=== PATIENT | female | born 1965 | race Caucasian/White ===

== ENCOUNTER 2016-10-12 18:54 | Emergency (ER) | payer MEDICAID ==
[2010-10-25 02:15] VITALS: BMI 41.9
[2016-10-12 20:59] LABS: APPEARANCE HAZY (CLEAR); BILIRUBIN NEGATIVE (NEGATIVE); COLOR PINK (YELLOW); GLUCOSE NEGATIVE (NEGATIVE); KETONE NEGATIVE (NEGATIVE); LEUKOCYTE ESTERASE 1+ (NEGATIVE); NITRITE NEGATIVE (NEGATIVE); PROTEIN NEGATIVE (NEGATIVE); UROBILINOGEN NORMAL (NORMAL)
[2016-10-12 21:00] LABS: BACTERIA NONE SEEN /hpf (NONE SEEN); EPITHELIAL CELLS 0-5 /hpf (0-5); RED CELLS - URINE 25-50 /hpf (0-5); WHITE CELLS - URINE 0-5 /hpf (0-5)
[2016-12-17 10:42] VITALS: BMI 42.2
== END 2016-10-12 23:00 | disposition home or self-care (01) ==
LOC: D.ER 18:54
PROVIDERS: Emergency Medicine
DX: N23 Unspecified renal colic (principal); R91.1 Solitary pulmonary nodule; I10 Essential (primary) hypertension; E11.9 Type 2 diabetes mellitus without complications

== ENCOUNTER 2016-10-22 16:13 | Emergency (ER) | payer MEDICAID ==
[2010-10-25 02:15] VITALS: BMI 41.9
[2016-10-22 17:51] LABS: APPEARANCE CLEAR (CLEAR); BILIRUBIN NEGATIVE (NEGATIVE); COLOR PINK (YELLOW); GLUCOSE NEGATIVE (NEGATIVE); KETONE NEGATIVE (NEGATIVE); LEUKOCYTE ESTERASE NEGATIVE (NEGATIVE); NITRITE NEGATIVE (NEGATIVE); PROTEIN NEGATIVE (NEGATIVE); UROBILINOGEN NORMAL (NORMAL)
[2016-10-22 17:52] LABS: BACTERIA FEW /hpf (NONE SEEN); RED CELLS - URINE 25-50 /hpf (0-5); WHITE CELLS - URINE 0-5 /hpf (0-5)
[2016-10-22 20:51] LABS: BASOPHILS 0.5 % (0.0-2.0); EOSINOPHILS 0.8 % (0-7); HEMATOCRIT 37.1 % (36.0-48.0); HEMOGLOBIN 11.9 g/dL (12-16); IMMATURE GRANULOCYTES 0.5 % (0-5); LYMPHOCYTES 19.1 % (15-50); MCH 27.2 pg (26.0-34.0); MCHC 32.1 g/dL (31.0-37.0); MCV 84.9 fL (80.0-100.0); MEAN PLATELET VOLUME 9.8 fL (7.4-10.4); MONOCYTES 7.4 % (2-11); NEUTROPHILS 71.7 % (40-80); PLATELET COUNT 187 10x3/uL (130-400); RBC 4.37 10x6/uL (4.00-5.40)
[2016-12-17 10:42] VITALS: BMI 42.2
== END 2016-10-22 23:24 | disposition home or self-care (01) ==
LOC: D.ER 16:13
PROVIDERS: Emergency Medicine; Nurse Practitioner Acute Care
DX: R31.9 Hematuria, unspecified (principal); I10 Essential (primary) hypertension; E11.9 Type 2 diabetes mellitus without complications

== ENCOUNTER 2016-10-23 18:22 | Emergency (ER) | payer MEDICAID ==
[2010-10-25 02:15] VITALS: BMI 41.9
[2016-12-17 10:42] VITALS: BMI 42.2
== END 2016-10-23 19:52 | disposition home or self-care (01) ==
LOC: D.ER 18:22
DX: S40.012A Contusion of left shoulder, initial encounter (principal); W10.9XXA Fall (on) (from) unspecified stairs and steps, initial encounter; Y93.89 Activity, other specified; Y92.019 Unspecified place in single-family (private) house as the place of occurrence of the external cause; S70.02XA Contusion of left hip, initial encounter; I10 Essential (primary) hypertension; E11.9 Type 2 diabetes mellitus without complications

== ENCOUNTER 2016-10-28 17:33 | Emergency (ER) | payer MEDICAID ==
[2010-10-25 02:15] VITALS: BMI 41.9
[2016-10-28 18:23] LABS: BASOPHILS 0.4 % (0.0-2.0); EOSINOPHILS 0.9 % (0-7); HEMATOCRIT 38.5 % (36.0-48.0); HEMOGLOBIN 12.4 g/dL (12-16); IMMATURE GRANULOCYTES 0.3 % (0-5); LYMPHOCYTES 20.8 % (15-50); MCH 27.3 pg (26.0-34.0); MCHC 32.2 g/dL (31.0-37.0); MCV 84.8 fL (80.0-100.0); MEAN PLATELET VOLUME 10.1 fL (7.4-10.4); MONOCYTES 4.8 % (2-11); NEUTROPHILS 72.8 % (40-80); RBC 4.54 10x6/uL (4.00-5.40); RDW 14.1 % (11.5-14.5); WBC 9.2 10x3/uL (4.8-10.8)
[2016-10-28 18:25] LABS: APPEARANCE HAZY (CLEAR); BILIRUBIN NEGATIVE (NEGATIVE); COLOR RED (YELLOW); GLUCOSE NEGATIVE (NEGATIVE); KETONE NEGATIVE (NEGATIVE); LEUKOCYTE ESTERASE 1+ (NEGATIVE); NITRITE NEGATIVE (NEGATIVE); PROTEIN NEGATIVE (NEGATIVE); UROBILINOGEN NORMAL (NORMAL)
[2016-10-28 18:26] LABS: EPITHELIAL CELLS 0-5 /hpf (0-5); RED CELLS - URINE >50 /hpf (0-5)
[2016-10-28 18:27] LABS: BACTERIA MODERATE /hpf (NONE SEEN); PLATELET COUNT 260 10x3/uL (130-400)
[2016-10-28 22:55] LABS: ANION GAP 13.9 mmol/L (8-16); CALCIUM 9.7 mg/dL (8.5-10.1); CARBON DIOXIDE 23.6 mmol/L (21.0-32.0); CREATININE - SERUM 0.9 mg/dL (0.6-1.3); POTASSIUM - SERUM 3.5 mmol/L (3.5-5.1)
[2016-12-17 10:42] VITALS: BMI 42.2
== END 2016-10-28 23:19 | disposition home or self-care (01) ==
LOC: D.ER 17:33
PROVIDERS: Emergency Medicine
DX: N39.0 Urinary tract infection, site not specified (principal); I10 Essential (primary) hypertension; E11.9 Type 2 diabetes mellitus without complications

== ENCOUNTER 2016-11-13 15:03 | Emergency (ER) | payer MEDICAID ==
[2010-10-25 02:15] VITALS: BMI 41.9
[2016-11-13 16:23] LABS: BASOPHILS 0.1 % (0.0-2.0); EOSINOPHILS 0.6 % (0-7); HEMATOCRIT 37.1 % (36.0-48.0); HEMOGLOBIN 11.5 g/dL (12-16); IMMATURE GRANULOCYTES 0.3 % (0-5); LYMPHOCYTES 21.9 % (15-50); MCH 26.9 pg (26.0-34.0); MCV 86.7 fL (80.0-100.0); MEAN PLATELET VOLUME 10.1 fL (7.4-10.4); MONOCYTES 5.5 % (2-11); NEUTROPHILS 71.6 % (40-80); RBC 4.28 10x6/uL (4.00-5.40); RDW 14.8 % (11.5-14.5); WBC 6.9 10x3/uL (4.8-10.8)
[2016-11-13 16:24] LABS: PLATELET COUNT 156 10x3/uL (130-400)
[2016-11-13 16:40] LABS: ALKALINE PHOSPHATASE 134 U/L (46-116); ALT (SGPT) 21 U/L (10-68); BILIRUBIN - TOTAL 0.31 mg/dL (0.2-1.3); CALC OSMOLALITY 277 mosm/kg (275-300); CALCIUM 9.4 mg/dL (8.5-10.1); CARBON DIOXIDE 23.1 mmol/L (21.0-32.0); CHLORIDE - SERUM 105 mmol/L (98-107); CREATININE - SERUM 0.8 mg/dL (0.6-1.3); GLUCOSE 102 mg/dL (74-106); PROTEIN - SERUM 7.8 g/dL (6.4-8.2); SODIUM 140 mmol/L (136-145); UREA NITROGEN 10 mg/dL (7-18); eGFR NON AFRICAN AMERICAN 80 mL/min (90-120)
[2016-11-13 17:09] LABS: APPEARANCE CLOUDY (CLEAR); BILIRUBIN NEGATIVE (NEGATIVE); COLOR RED (YELLOW); GLUCOSE NEGATIVE (NEGATIVE); KETONE NEGATIVE (NEGATIVE); LEUKOCYTE ESTERASE TRACE (NEGATIVE); NITRITE NEGATIVE (NEGATIVE); PROTEIN 1+ mg/dL (NEGATIVE); UROBILINOGEN NORMAL (NORMAL)
[2016-11-13 17:10] LABS: BACTERIA FEW /hpf (NONE SEEN); EPITHELIAL CELLS 0-5 /hpf (0-5); RED CELLS - URINE 25-50 /hpf (0-5); WHITE CELLS - URINE 0-5 /hpf (0-5)
[2016-12-17 10:42] VITALS: BMI 42.2
== END 2016-11-13 20:33 | disposition home or self-care (01) ==
LOC: D.ER 15:03
PROVIDERS: Emergency Medicine
DX: R11.10 Vomiting, unspecified (principal); R19.7 Diarrhea, unspecified; N20.0 Calculus of kidney; I10 Essential (primary) hypertension; E11.9 Type 2 diabetes mellitus without complications

== ENCOUNTER 2016-11-21 16:57 | Emergency (ER) | payer MEDICAID, MEDICARE ==
[2010-10-25 02:15] VITALS: BMI 41.9
[2016-12-17 10:42] VITALS: BMI 42.2
== END 2016-11-21 20:52 | disposition home or self-care (01) ==
LOC: D.ER 16:57
DX: S93.602A Unspecified sprain of left foot, initial encounter (principal); W22.8XXA Striking against or struck by other objects, initial encounter; Y93.89 Activity, other specified; Y92.488 Other paved roadways as the place of occurrence of the external cause; I10 Essential (primary) hypertension; E11.9 Type 2 diabetes mellitus without complications

== ENCOUNTER 2016-12-02 11:51 | Emergency (ER) | payer MEDICAID ==
[2010-10-25 02:15] VITALS: BMI 41.9
[2016-12-17 10:42] VITALS: BMI 42.2
== END 2016-12-02 12:00 | disposition left against medical advice (07) ==
LOC: D.ER 11:51
DX: Z02.9 Encounter for administrative examinations, unspecified (principal)

== ENCOUNTER 2016-12-16 18:12 | Inpatient (IN) | payer MEDICAID ==
[~2016-12-16] VITALS: Ht 167.6 cm; Wt 122.0 kg
[2016-12-16 19:24] LABS: APPEARANCE CLEAR (CLEAR); BASOPHILS 0.1 % (0.0-2.0); BILIRUBIN NEGATIVE (NEGATIVE); COLOR YELLOW (YELLOW); EOSINOPHILS 0.3 % (0-7); GLUCOSE NEGATIVE (NEGATIVE); HEMATOCRIT 36.2 % (36.0-48.0); HEMOGLOBIN 11.8 g/dL (12-16); IMMATURE GRANULOCYTES 0.3 % (0-5); KETONE NEGATIVE (NEGATIVE); LEUKOCYTE ESTERASE NEGATIVE (NEGATIVE); LYMPHOCYTES 14.5 % (15-50); MCH 27.4 pg (26.0-34.0); MCHC 32.6 g/dL (31.0-37.0); MCV 84.2 fL (80.0-100.0); MEAN PLATELET VOLUME 9.8 fL (7.4-10.4); MONOCYTES 3.1 % (2-11); NEUTROPHILS 81.7 % (40-80); NITRITE NEGATIVE (NEGATIVE); PLATELET COUNT 185 10x3/uL (130-400); PROTEIN NEGATIVE (NEGATIVE); RDW 15.4 % (11.5-14.5); UROBILINOGEN NORMAL (NORMAL); WBC 7.9 10x3/uL (4.8-10.8)
[2016-12-16 19:36] LABS: UDS - AMPHET NEGATIVE QUAL (NEGATIVE); UDS - BARB NEGATIVE QUAL (NEGATIVE); UDS - BENZO POSITIVE QUAL (NEGATIVE); UDS - COCAINE NEGATIVE QUAL (NEGATIVE); UDS - METH NEGATIVE QUAL (NEGATIVE); UDS - OPIATE NEGATIVE QUAL (NEGATIVE); UDS - PCP NEGATIVE QUAL (NEGATIVE); UDS - THC NEGATIVE QUAL (NEGATIVE)
[2016-12-16 19:47] LABS: ALKALINE PHOSPHATASE 134 U/L (46-116); ALT (SGPT) 34 U/L (10-68); BILIRUBIN - TOTAL 0.28 mg/dL (0.2-1.3); CALC OSMOLALITY 277 mosm/kg (275-300); CARBON DIOXIDE 20.1 mmol/L (21.0-32.0); CHLORIDE - SERUM 101 mmol/L (98-107); CREATININE - SERUM 0.8 mg/dL (0.6-1.3); GLUCOSE 161 mg/dL (74-106); POTASSIUM - SERUM 4.6 mmol/L (3.5-5.1); PROTEIN - SERUM 8.1 g/dL (6.4-8.2); SODIUM 138 mmol/L (136-145); UREA NITROGEN 9 mg/dL (7-18); eGFR NON AFRICAN AMERICAN 80 mL/min (90-120)
[2016-12-16 19:48] LABS: MAGNESIUM - SERUM 2.3 mg/dL (1.8-2.4)
--- NOTE | 2016-12-16 23:15 | NUR ---
RECIEVED TO ROOM 2125 FROM ER VIA STRETCHER. PT A&O. IV TO RIGHT WRIST SL, SITE CLEAN AND DRY. UP WITH ASSIST TO BR, FAMILY AT BED SIDE.
[2016-12-16] MEDS ORDERED: AMBIEN10 MG PO (23:48)
[2016-12-16] MEDS ORDERED: XANAX1 MG PO (23:49)
[2016-12-16] MEDS ORDERED: LEXAPRO10 MG PO (23:49)
[2016-12-16] MEDS ORDERED: PROTONIX40 MG PO (23:49)
[2016-12-16] MEDS ORDERED: IBUPROFEN400 MG PO (23:50)
--- NOTE | 2016-12-17 00:34 | NUR ---
ZOFRAN 4 MG GIVEN FOR C/O NAUSEA AND TYLENOL 500 MG GIVEN FOR C/O HEADACHE.
[2016-12-17 02:00] VITALS: BP 108/66
--- NOTE | 2016-12-17 03:48 | NUR ---
RESTING WITH EYES CLOSED, RESPERATIONS EVEN, NO S/S DISTRESS NOTED.
[2016-12-17 04:00] VITALS: BP 124/94
[2016-12-17 06:18] VITALS: BP 151/97; BMI 42.3
[2016-12-17 08:05] VITALS: BP 151/61
[2016-12-17 10:42] VITALS: Ht 167.6 cm; Wt 122.0 kg
[2016-12-17 12:07] VITALS: BP 138/83
[2016-12-17 13:41] LABS: BASOPHILS 0.6 % (0.0-2.0); EOSINOPHILS 0.6 % (0-7); HEMOGLOBIN 10.8 g/dL (12-16); IMMATURE GRANULOCYTES 0.2 % (0-5); LYMPHOCYTES 21.2 % (15-50); MCH 27.5 pg (26.0-34.0); MCHC 31.8 g/dL (31.0-37.0); MEAN PLATELET VOLUME 9.9 fL (7.4-10.4); MONOCYTES 4.7 % (2-11); NEUTROPHILS 72.7 % (40-80); PLATELET COUNT 168 10x3/uL (130-400); RBC 3.93 10x6/uL (4.00-5.40); RDW 15.7 % (11.5-14.5); WBC 6.2 10x3/uL (4.8-10.8)
[2016-12-17 13:48] LABS: MCV 86.5 fL (80.0-100.0)
[2016-12-17 13:59] LABS: ALBUMIN 3.7 g/dL (3.4-5.0); ANION GAP 17.1 mmol/L (8-16); BILIRUBIN - TOTAL 0.32 mg/dL (0.2-1.3); CALCIUM 8.6 mg/dL (8.5-10.1); CARBON DIOXIDE 22.6 mmol/L (21.0-32.0); PROTEIN - SERUM 7.3 g/dL (6.4-8.2)
[2016-12-17 14:03] LABS: POTASSIUM - SERUM 3.7 mmol/L (3.5-5.1)
[2016-12-17 14:28] LABS: % SATURATION 19 % (15-55); IRON 60 ug/dl (35-150); TOTAL IRON BIND CAPACITY 308 ug/dl (260-445); UNSAT IRON BIND CAPACITY 248 ug/dl (150-375)
[2016-12-17 16:00] VITALS: BP 107/76
--- NOTE | 2016-12-17 17:55 | NUR ---
ALERT AND ORIENTED X4. SITTING UP IN BED. DENIES SOB. PAIN MANAGEMENT FOR HEADACHES. SINUS RHYTHM 75bpm ON TELEMETRY. CONTINUE PLAN OF CARE AND SAFETY PRECAUTIONS. BED LOCKED AND LOW. CALL LIGHT IN REACH. TWO SIDERAILS UP.
--- NOTE | 2016-12-17 20:27 | NUR ---
HS MEDS GIVEN WITH FRESH ICE WATER. BS 113, NO COVERAGE GIVEN PER S/S. ZOFRAN 4 MG GIVEN FOR C/O NAUSEA AND TYLENOL WITH CODIENE GIVEN FOR C/O HEADACHE.
--- NOTE | 2016-12-17 22:29 | NUR ---
SITTING UP IN BED, DENIES NEEDS.
[2016-12-18] VITALS: BP 114/68
--- NOTE | 2016-12-18 00:10 | NUR ---
RESIDENTIAL PROPERTY MANAGER AT BED SIDE, HAIR WASHED AND TOWEL DRIED.
--- NOTE | 2016-12-18 00:33 | NUR ---
SUPERVISOR LACE TEARING AT BEDSIDE TO OBTAIN VITALS, CALL LIGHT IN REACH. 78 SR ON TELEMETRY. WILL CONTINUE WITH PLAN OF CARE.
[2016-12-18 04:00] VITALS: BP 108/74
--- NOTE | 2016-12-18 04:37 | NUR ---
RESTING WITH EYES CLOSED, RESPERATIONS EVEN, NO S/S DISTRESS NOTED.
[2016-12-18 06:36] LABS: BASOPHILS 0.4 % (0.0-2.0); EOSINOPHILS 2.1 % (0-7); HEMATOCRIT 34.5 % (36.0-48.0); HEMOGLOBIN 10.9 g/dL (12-16); IMMATURE GRANULOCYTES 0.4 % (0-5); LYMPHOCYTES 29.6 % (15-50); MCH 26.8 pg (26.0-34.0); MCHC 31.6 g/dL (31.0-37.0); MEAN PLATELET VOLUME 9.8 fL (7.4-10.4); MONOCYTES 3.7 % (2-11); NEUTROPHILS 63.8 % (40-80); PLATELET COUNT 177 10x3/uL (130-400); RBC 4.06 10x6/uL (4.00-5.40); RDW 15.9 % (11.5-14.5); WBC 5.7 10x3/uL (4.8-10.8)
[2016-12-18 07:00] LABS: ALBUMIN 3.5 g/dL (3.4-5.0); ALKALINE PHOSPHATASE 121 U/L (46-116); ALT (SGPT) 38 U/L (10-68); CALC OSMOLALITY 271 mosm/kg (275-300); CALCIUM 8.9 mg/dL (8.5-10.1); CARBON DIOXIDE 22.5 mmol/L (21.0-32.0); CHLORIDE - SERUM 104 mmol/L (98-107); CREATININE - SERUM 0.8 mg/dL (0.6-1.3); POTASSIUM - SERUM 3.7 mmol/L (3.5-5.1); PROTEIN - SERUM 7.2 g/dL (6.4-8.2); SODIUM 136 mmol/L (136-145); UREA NITROGEN 10 mg/dL (7-18); eGFR NON AFRICAN AMERICAN 80 mL/min (90-120)
[2016-12-18 07:08] LABS: GLUCOSE 108 mg/dL (74-106)
[2016-12-18 07:26] LABS: FOLATE (FOLIC ACID) - SERUM 10.1 ng/mL (>3.0)
[2016-12-18 07:48] VITALS: BP 107/75
--- NOTE | 2016-12-18 07:55 | NUR ---
ASSESSMENT COMPLETED. RIGHT WRIST WITH NS AT 75. ALERT AND ORIENTED. NPO FOR EEG. NO NEEDS VOICED.SR UP WITH CALL LIGHT IN REACH
--- NOTE | 2016-12-18 11:52 | HP ---
PATIENT: REYNALDO WATERS MEDICAL RECORD: [id number] ACCOUNT: [id number] LOCATION:[address] : [birth year] ADMISSION DATE: 12/16/16 HISTORY AND PHYSICAL EXAMINATION HISTORY OF PRESENT ILLNESS: Ms. Waters is a 51-year-old white female patient of Dr. Heath, who presents with an episode of 2 recent syncopal episodes; first episode occurred last Thursday, was witnessed by her significant other. She apparently passed out for 10-15 seconds when she came through, she was not herself. It took about 20-30 minutes to clear, had another episode today with another loss of consciousness, states she felt dizzy and lightheaded. She again lost consciousness and again was not herself. At this time, it took a little bit longer to come to. She denies any incontinence. She has no history of seizures in the past. CT of her head in the Emergency Room shows nothing acute. She does complain of a headache and nausea, which is pretty severe. She was treated with Toradol for the headache when she was seen at [facility]. She is admitted at this time for further evaluation and therapy. PAST MEDICAL HISTORY: Significant for diabetes, hypertension, obesity, GERD, anxiety, depression. PREVIOUS SURGERIES: Include gallbladder surgery, caesarean section, appendectomy, hysterectomy, multiple knee surgeries and a previous back surgery. ALLERGIES: None known. HOME MEDICATIONS: Include alprazolam 1 mg q.6 hours p.r.n., Lexapro 10 mg a day, ibuprofen p.r.n., Ambien 10 mg at bedtime, and pantoprazole 40 mg daily. FAMILY HISTORY: Noncontributory. SOCIAL HISTORY: She has lives with 3 smokers, but does not smoke herself. REVIEW OF SYSTEMS: She does complain of some anxiety problems, has been on alprazolam in the past and then she got a positive drug screen for benzos, states she has not taken it since Thursday, does not think she took too much medicine, but she does not recall for sure. She denies any chest pain or palpitation. She does complain of dizziness associated with these symptoms. LABORATORY DATA: Sodium was 138, potassium 4.6, BUN 9, creatinine 0.8, AST 50, ALT 34, alkaline phosphatase 134. White count is 7.9, H&H 11.8 and 36.2. Drug screen was positive for benzos. Lactic acid was a little elevated. PHYSICAL EXAMINATION: VITAL SIGNS: Temperature is 98.1, pulse 78, respirations 17, and BP 138/83. GENERAL: Alert, awake, no distress. HEENT: Negative. NECK: Soft and supple. No bruits are appreciated. HEART: Regular with II/ murmur. LUNGS: Clear. ABDOMEN: Soft. No rebound, no guarding, no mass. NEUROLOGIC: Without any gross focal deficits. IMPRESSION: Syncope times 2, elevated LFTs, type 2 diabetes. HISTORY AND PHYSICAL [id number] REYNALDO WATERS PLAN: Admit to telemetry. Check EEG, neurology consult with Dr. Reynaga. Check an echo due to heart murmur. See orders for rest of plan. TRANSINT:[id number] Voice Confirmation ID: [id number] DOCUMENT ID: [id number] SEBASTIAN RUIZ DO at 1152 CC: [id number] DICTATION DATE: 12/17/16 172 FIELD SUPPORT REP: 12/17/16 2311 ADM IN [place] [id number] [place] [address]
[2016-12-18 12:05] VITALS: BP 122/70
[2016-12-18 15:53] VITALS: BP 108/67
--- NOTE | 2016-12-18 15:58 | NUR ---
LYING QUIETLY. DENIES ANY NEEDS. IV INFUSING WELL. SR UP WITH CALL LIGHT IN REACH
--- NOTE | 2016-12-18 19:41 | NUR ---
RESUMED CARE OF PT, LYING IN BED RESPIRATIONS EVEN AND UNLABORED ON ROOM AIR. RIGHT WRIST INFUSING 1/2 NS @ 75. 78 SR ON TELEMETRY. PLAN OF CARE DISCUSSED. CALL LIGHT IN REACH. WILL CONTINUE TO MONITOR. COMPLAINTS OF MIGRAINE, MRI EARLIER TODAY. SEE NURSE ASSESSMENT.
[2016-12-18 20:00] VITALS: BP 109/74
[2016-12-19] VITALS: BP 116/67
[2016-12-19 04:00] VITALS: BP 108/69
[2016-12-19 08:22] VITALS: BP 107/65
--- NOTE | 2016-12-19 10:20 | NUR ---
RESTING QUIETLY NAD NOTED
[2016-12-19 12:42] VITALS: BP 130/75
--- NOTE | 2016-12-19 15:44 | NUR ---
LYING QUIETLY. FAMILY AT BEDSIDE. SR UP AND CALL LIGHT IN REACH.DENIES ANY NEEDS. WILL MONITOR
[2016-12-19 16:55] VITALS: BP 110/62
--- NOTE | 2016-12-19 17:20 | NUR ---
Patient Name: REYNALDO FALLON Admission Status: ER Admission Date: 12-16-2016 : 1965 Admission Diagnosis: SYNCOPE AND COLLAPSE Attending: DEXTER Current LOS: 3 Anticipated DC Date: 12-20-2016 Planned Disposition: Home or Self Care Primary Insurance: [place]ID [place] Discharge Planning Comments: CM met with patient and spouse at bedside to discuss discharge planning/needs. The patient resides with her spouse and three adult children in a single wide home with 4 steps to front door. She had no HH/DME supplies in use at time of this admission. She denies the need for either at this time. Her caregivers at discharge will be her spouse "Leonardo" and her daughter "Erin Fallon" ([phone]). Her PCP is Dr. Brown. Her pharmacy is [facility] ([facility]) #[phone]. Her spouse "Leonardo" ([phone]) will be her transportation home. CM will continue to follow and assist as needed with discharge plans/needs. Senior Relationship Manager: Zara Perez RN/CM * Is the patient Alert and Oriented? Yes 0 * How many steps to enter\\exit or inside your home? 4 0 * PCP JEAN MARIE 0 * Pharmacy [facility] ([facility]) [phone] 0 * Preadmission Environment Home with Family 0 * ADLs Independent 0 * Equipment None 0 * List name and contact numbers for known caregivers / representatives who currently or will assist patient after discharge: spouse: Leonardo Fallon ([phone]) daughter: Erin Fallon ([phone]) 0 * Community resources currently utilized None 0 * Additional services required to return to the preadmission environment? No 0 * Can the patient safely return to the preadmission environment? Yes 0 * Has this patient been hospitalized within the prior 30 days at any hospital? No 0 Grand Total: 0
--- NOTE | 2016-12-19 18:49 | NUR ---
LYING QUIETLY. DENIES ANY NEED. WILL MONITOR
--- NOTE | 2016-12-19 19:29 | NUR ---
PT AMBULATING HALLS. GAIT EVEN AND STEADY. WILL CONTINUE TO MONITOR.
[2016-12-19 21:31] VITALS: BP 118/77
--- NOTE | 2016-12-19 22:11 | NUR ---
ASESSMENT COMPLETED AT 2009 HRS. VSS. SR PER CM HR 80. IV TO R WRIST WITH 1/2NS AT 75CC/HR. IV PATENT. R EYE CLOSED. STATES HS PHOTOSENSITIVITY TO THAT EYE. BRUIDE NOTED TO INNER L WRIST. SORES NOTED TO BILAT FEET ADN TOES. ALERT AND ORIENTED TO PERSON, PLACE AND TIME. PM FSBS 115. NO COVERAGE NEEDED. PM MEDS GIVEN. DILAUDID 0.5MG SIVP GIVEN FOR C/O AGUSTIN. PT CURRENTLY RESTING WITHI EYES CLOSED. RESP EVEN AND REGULAR. SR UP X2, CALL LIGHT WITHIN REACH.
--- NOTE | 2016-12-20 00:29 | NUR ---
PT AWAKE; STATES AGUSTIN NOW 12/12. WILL CONTINUE TO MONITOR.
--- NOTE | 2016-12-20 02:13 | NUR ---
PT RESTING WITH EYES CLOSED. RESP EVEN AND REGULAR. SR UP X2, CALL LIGHT WITHIN REACH.
--- NOTE | 2016-12-20 04:20 | NUR ---
PT AWAKE; DENIES ANY DISCOMFORT. ALERT AND ORIENTED TO PERSON, PLACE AND TIME. WILL CONTINUE TO MONITOR. SR UP X2, CALL LIGHT WITHIN REACH.
--- NOTE | 2016-12-20 04:52 | NUR ---
DILAUDID 0.5MG SIVP GIVEN FOR C/O MIGRAINE. WILL CONTINUE TO MONITOR.
[2016-12-20 05:31] LABS: BASOPHILS 0.4 % (0.0-2.0); EOSINOPHILS 1.6 % (0-7); HEMATOCRIT 32.4 % (36.0-48.0); HEMOGLOBIN 10.2 g/dL (12-16); IMMATURE GRANULOCYTES 0.4 % (0-5); LYMPHOCYTES 30.9 % (15-50); MCH 27.1 pg (26.0-34.0); MCHC 31.5 g/dL (31.0-37.0); MCV 85.9 fL (80.0-100.0); MEAN PLATELET VOLUME 10.1 fL (7.4-10.4); MONOCYTES 4.9 % (2-11); NEUTROPHILS 61.8 % (40-80); PLATELET COUNT 145 10x3/uL (130-400); RBC 3.77 10x6/uL (4.00-5.40); RDW 15.9 % (11.5-14.5); WBC 5.7 10x3/uL (4.8-10.8)
[2016-12-20 05:49] LABS: CALC OSMOLALITY 272 mosm/kg (275-300); CALCIUM 8.9 mg/dL (8.5-10.1); CARBON DIOXIDE 22.5 mmol/L (21.0-32.0); CHLORIDE - SERUM 105 mmol/L (98-107); CREATININE - SERUM 0.7 mg/dL (0.6-1.3); GLUCOSE 124 mg/dL (74-106); POTASSIUM - SERUM 3.7 mmol/L (3.5-5.1); SODIUM 137 mmol/L (136-145); UREA NITROGEN 8 mg/dL (7-18); eGFR NON AFRICAN AMERICAN > 90 mL/min (90-120)
[2016-12-20 05:53] VITALS: BP 107/72
--- NOTE | 2016-12-20 06:35 | NUR ---
VSS THORUGHOUT NIGHT. SR PER CM. NO NEURO DEFICITS NOTED DURING SHIFT. PT STATES DILAUDID HELPS MIGRAINE. NEEDS MET; WILL CONTINUE TO MONITOR.
--- NOTE | 2016-12-20 07:33 | NUR ---
RECEIVED PT REPORT. WILL CONTINUE PLAN OF CARE. NO OTHER NEEDS AT THIS TIME. WILL CONTINUE TO MONITOR.
--- NOTE | 2016-12-20 08:25 | NUR ---
PT IS ALERT. ASSESSMENT DONE PER FLOWSHEET. NO OTHER NEEDS AT THIS TIME. WILL CONTINUE TO MONITOR.
[2016-12-20 09:19] VITALS: BP 115/74
[2016-12-20 12:21] VITALS: BP 129/78
[2016-12-20] MEDS ORDERED: TOPAMAX25 MG PO (15:20)
[2016-12-20] MEDS ORDERED: IMITREX50 MG PO (15:20)
[2016-12-20 15:49] VITALS: BP 120/71
--- NOTE | 2016-12-23 08:17 | EC ---
PATIENT:REYNALDO FALLON DATE OF SERVICE: 12/16/16 SEX: F MEDICAL RECORD: [id number] DATE OF : 67 LOCATION:D. D.212 AGE OF PATIENT: 51 ADMISSION DATE: 12/16/16 REFERRING PHYSICIAN: INTERPRETING PHYSICIAN: YAMILET DENISE M.D. ECHOCARDIOGRAM REPORT ECHO CHARGES 4 ECHO COMPLETE CLINICAL DIAGNOSIS: MURMUR/SYNCOPE HX CAD/ TREATED WITH MEDS ECHOCARDIOGRAPHIC MEASUREMENTS (adult normal given) AC root (d.<3.7cm) 3.8 LV Septum d (<1.2 cm> 1.4 Valve Excursion 1.7 LV Septum (systole) 1.5 Left Atria (s.<4.0cm> 3.4 LVPW d(<1.2cm) 1.3 RV (d.<2.3cm) 5.3 LVPW (sytole) 1.4 LV diastole(<5.6CM) 3.7 MV E-F(>70mm/sec) LV systole 2.8 LVOT Diameter 2.2 MV exc.(>10mm) 1.6 Est.ejection fraction (50-75%) Pericardial Effusion N DOPPLER: LVIT A 96.0 E 71.0 LA RVSP 28 LVOT 117 AOP1/2T Asc. Ao 227 RVOT 85 RA PA 134 AV Gradient Peak 20.57 AV Mean 10.85 AV Area 1.9 MV Gradient Peak 6.36 MV Mean 2.81 MV Area COMMENTS: Hardware Installer: Kerry MUNSON Clinical Psychologist:2 Dr. Denise TAPE# PACS DATE OF SERVICE: 12/18/2016 REFERRING PHYSICIAN: Jhony Kelsey DO INDICATION: Murmur, syncope. DESCRIPTION: Left ventricle demonstrates left ventricular hypertrophy. No wall motion abnormalities are noted. Estimated ejection fraction is 55%. Mitral valve is structurally normal. There is mild regurgitation seen. Left atrium is normal in size. The aortic valve leaflets are thickened. Peak gradient across ECHOCARDIOGRAM REPORT [id number] REYNALDO FALLON the valve is 20 mmHg. There is mild insufficiency noted as well. Right ventricle is mildly dilated. Tricuspid valve is normal. There is mild regurgitation noted. Right atrium is normal in size. There is no pericardial effusion seen. IMPRESSION: 1. Left ventricular hypertrophy with preserved ejection fraction of 55%. 2. Mild mitral regurgitation. 3. Mild aortic stenosis with mild insufficiency. 4. Mild tricuspid regurgitation. TRANSINT:[id number] Voice Confirmation ID: [id number] DOCUMENT ID: [id number] YAMILET DENISE M.D. at 0817 CC: [id number] DICTATION DATE: 12/19/16 0636 TIMBER WATCHMAN: 12/19/16 1013 DIS IN 12/20/16 [place] [id number] [place] [id number]
--- NOTE | 2016-12-24 08:21 | EEG ---
PATIENT:REYNALDO FALLON DATE OF SERVICE: 12/16/16 MEDICAL RECORD: [id number] DATE OF : [birth year] LOCATION:D.212 D.M2 ADMISSION DATE: 12/16/16 REFERRING PHYSICIAN: INTERPRETING PHYSICIAN: JOSEPH CAICEDO MD DATE OF SERVICE: 12/18/2016 Electroencephalographic Report REFERRED BY: Myself as an inpatient, currently in room 2126. ELECTROENCEPHALOGRAM NUMBER: [id number]. DATE OF EXAMINATION: 12/18/2016 at 10:30 a.m. TECHNICAL DATA: This electroencephalographic recording consists of approximately 20 minutes of data collection utilizing the international 10/20 system of electrode placement and both referential and non-referential montages. Sixteen channels of electrocerebral recording are accompanied by a 17th channel dedicated to the electrocardiographic rhythm and 2 channels of electromyographic recording. Recording is performed in the awake and drowsy states utilizing activation by photic stimulation. ELECTROENCEPHALOGRAPHIC DATA: The awake state comprises approximately 70% of the recorded electrocerebral activity. Electromyographic artifact is prominent and rapid eye movements are seen. The posterior dominant background consists of a symmetric, semi-arrhythmic, waxing and waning 9-10 Hz alpha activity, which is suppressed by eye opening. The drowsy state comprises the remaining portion of the recorded electrocerebral activity. Electromyographic artifact is diminished and rapid eye movements are not seen. No abnormal or focal slowing is identified. No epileptiform discharges are seen. Photic stimulation induces no abnormal change in the recorded electrocerebral activity. INTERPRETATION: Normal (awake and drowsy). This is a normal electroencephalographic recording. TRANSINT:[id number] Voice Confirmation ID: [id number] DOCUMENT ID: [id number] JOSEPH CAICEDO MD at 0821 CC: [id number] DICTATION DATE: 12/19/16 0704 CLOTHING AND TEXTILES TEACHER: 12/20/16 0129 DIS IN 12/20/16 [facility] [address] [place] [address]
== END 2016-12-20 18:29 | disposition home or self-care (01) | DRG 312 ==
LOC: D.ER 18:12 → D.M2 22:07
PROVIDERS: Family Medicine; ADMIT Family Medicine
DX: R55 Syncope and collapse (principal); Z68.41 Body mass index [BMI] 40.0-44.9, adult; G43.909 Migraine, unspecified, not intractable, without status migrainosus; F41.8 Other specified anxiety disorders; R74.8 Abnormal levels of other serum enzymes; E66.9 Obesity, unspecified; R41.82 Altered mental status, unspecified; E11.65 Type 2 diabetes mellitus with hyperglycemia; I10 Essential (primary) hypertension; K21.9 Gastro-esophageal reflux disease without esophagitis; I08.2 Rheumatic disorders of both aortic and tricuspid valves; F32.9 Major depressive disorder, single episode, unspecified

== ENCOUNTER 2017-01-05 19:28 | Emergency (ER) | payer MEDICAID ==
[2016-12-17 10:42] VITALS: BMI 42.2
[~2017-01-05 19:28] MED LIST: AMBIEN10 MG PO; IBUPROFEN400 MG PO; IMITREX50 MG PO; LEXAPRO10 MG PO; PROTONIX40 MG PO; TOPAMAX25 MG PO; XANAX1 MG PO
[2017-01-05 20:12] LABS: BASOPHILS 0.3 % (0.0-2.0); EOSINOPHILS 0.5 % (0-7); HEMOGLOBIN 11.8 g/dL (12-16); IMMATURE GRANULOCYTES 0.3 % (0-5); LYMPHOCYTES 25.6 % (15-50); MCH 27.8 pg (26.0-34.0); MCHC 32.8 g/dL (31.0-37.0); MCV 84.7 fL (80.0-100.0); MONOCYTES 6.8 % (2-11); NEUTROPHILS 66.5 % (40-80); RBC 4.25 10x6/uL (4.00-5.40); RDW 15.6 % (11.5-14.5); WBC 7.9 10x3/uL (4.8-10.8)
[2017-01-05 20:16] LABS: PLATELET COUNT 179 10x3/uL (130-400)
[2017-01-05 22:37] LABS: APPEARANCE CLEAR (CLEAR); BILIRUBIN NEGATIVE (NEGATIVE); COLOR YELLOW (YELLOW); GLUCOSE NEGATIVE (NEGATIVE); KETONE NEGATIVE (NEGATIVE); LEUKOCYTE ESTERASE NEGATIVE (NEGATIVE); NITRITE NEGATIVE (NEGATIVE); PROTEIN NEGATIVE (NEGATIVE); UROBILINOGEN NORMAL (NORMAL)
[2017-01-05 22:53] LABS: UDS - AMPHET NEGATIVE QUAL (NEGATIVE); UDS - BARB NEGATIVE QUAL (NEGATIVE); UDS - BENZO NEGATIVE QUAL (NEGATIVE); UDS - COCAINE NEGATIVE QUAL (NEGATIVE); UDS - METH NEGATIVE QUAL (NEGATIVE); UDS - OPIATE NEGATIVE QUAL (NEGATIVE); UDS - PCP NEGATIVE QUAL (NEGATIVE); UDS - THC NEGATIVE QUAL (NEGATIVE)
[2017-01-05 23:13] LABS: ALBUMIN 4.2 g/dL (3.4-5.0); ALKALINE PHOSPHATASE 131 U/L (46-116); ALT (SGPT) 30 U/L (10-68); BILIRUBIN - TOTAL 0.33 mg/dL (0.2-1.3); CALC OSMOLALITY 283 mosm/kg (275-300); CALCIUM 9.6 mg/dL (8.5-10.1); CARBON DIOXIDE 14.7 mmol/L (21.0-32.0); CHLORIDE - SERUM 105 mmol/L (98-107); CREATININE - SERUM 0.8 mg/dL (0.6-1.3); GLUCOSE 124 mg/dL (74-106); POTASSIUM - SERUM 3.8 mmol/L (3.5-5.1); PROTEIN - SERUM 8.4 g/dL (6.4-8.2); SODIUM 142 mmol/L (136-145); UREA NITROGEN 13 mg/dL (7-18); eGFR NON AFRICAN AMERICAN 80 mL/min (90-120)
== END 2017-01-06 01:58 | disposition home or self-care (01) ==
LOC: D.ER 19:28
PROVIDERS: Emergency Medicine
DX: R41.82 Altered mental status, unspecified (principal); I10 Essential (primary) hypertension; E11.9 Type 2 diabetes mellitus without complications; R00.0 Tachycardia, unspecified

== ENCOUNTER 2017-01-21 18:32 | Emergency (ER) | payer MEDICARE ==
[2016-12-17 10:42] VITALS: BMI 42.2
== END 2017-01-21 20:30 | disposition home or self-care (01) ==
LOC: D.ER 18:32
DX: R51 Headache (principal); E11.9 Type 2 diabetes mellitus without complications; K21.9 Gastro-esophageal reflux disease without esophagitis; I10 Essential (primary) hypertension

== ENCOUNTER 2017-01-29 12:29 | Emergency (ER) | payer MEDICARE ==
[2017-01-29 13:38] LABS: BASOPHILS 0.3 % (0-2); EOSINOPHILS 0.8 % (0-7); HEMOGLOBIN 11.6 g/dL (12-16); IMMATURE GRANULOCYTES 0.3 % (0-5); LYMPHOCYTES 29.8 % (15-50); MCH 27.7 pg (26.0-34.0); MCHC 32.2 g/dL (31.0-37.0); MCV 85.9 fL (80.0-100.0); MEAN PLATELET VOLUME 9.8 fL (7.4-10.4); MONOCYTES 5.7 % (2-11); NEUTROPHILS 63.1 % (40-80); PLATELET COUNT 191 10x3/uL (130-400); RBC 4.19 10x6/uL (4.00-5.40); RDW 15.1 % (11.5-14.5); WBC 5.9 10x3/uL (4.8-10.8)
[2017-01-29 13:51] LABS: APPEARANCE CLEAR (CLEAR); BILIRUBIN NEGATIVE (NEGATIVE); COLOR RED (YELLOW); GLUCOSE NEGATIVE (NEGATIVE); KETONE NEGATIVE (NEGATIVE); LEUKOCYTE ESTERASE 1+ (NEGATIVE); NITRITE NEGATIVE (NEGATIVE); PROTEIN TRACE mg/dL (NEGATIVE); UROBILINOGEN NORMAL (NORMAL)
[2017-01-29 13:52] LABS: ALBUMIN 3.6 g/dL (3.4-5.0); ANION GAP 15.4 mmol/L (8-16); BACTERIA FEW /hpf (NONE SEEN); BILIRUBIN - TOTAL 0.22 mg/dL (0.2-1.3); CALCIUM 9.1 mg/dL (8.5-10.1); CARBON DIOXIDE 21.7 mmol/L (21.0-32.0); CREATININE - SERUM 0.9 mg/dL (0.6-1.3); EPITHELIAL CELLS 0-5 /hpf (0-5); POTASSIUM - SERUM 4.1 mmol/L (3.5-5.1); PROTEIN - SERUM 7.8 g/dL (6.4-8.2); RED CELLS - URINE >50 /hpf (0-5)
== END 2017-01-29 16:00 | disposition home or self-care (01) ==
LOC: D.ER 12:29
PROVIDERS: Emergency Medicine
DX: N39.0 Urinary tract infection, site not specified (principal); R30.0 Dysuria; R10.9 Unspecified abdominal pain; F41.9 Anxiety disorder, unspecified; E11.9 Type 2 diabetes mellitus without complications

== ENCOUNTER 2017-02-10 14:13 | Emergency (ER) | payer MEDICARE ==
[2016-12-17 10:42] VITALS: BMI 42.2
[2017-02-10 14:48] LABS: BASOPHILS 0.2 % (0-2); EOSINOPHILS 0.6 % (0-7); HEMATOCRIT 37.3 % (36.0-48.0); HEMOGLOBIN 11.8 g/dL (12-16); IMMATURE GRANULOCYTES 0.2 % (0-5); LYMPHOCYTES 27.8 % (15-50); MCH 27.3 pg (26.0-34.0); MCHC 31.6 g/dL (31.0-37.0); MCV 86.3 fL (80.0-100.0); MONOCYTES 6.4 % (2-11); NEUTROPHILS 64.8 % (40-80); PLATELET COUNT 214 10x3/uL (130-400); RBC 4.32 10x6/uL (4.00-5.40); RDW 14.8 % (11.5-14.5); WBC 8.3 10x3/uL (4.8-10.8)
[2017-02-10 14:56] LABS: APPEARANCE HAZY (CLEAR); BILIRUBIN NEGATIVE (NEGATIVE); COLOR YELLOW (YELLOW); GLUCOSE NEGATIVE (NEGATIVE); KETONE NEGATIVE (NEGATIVE); LEUKOCYTE ESTERASE TRACE (NEGATIVE); NITRITE NEGATIVE (NEGATIVE); PROTEIN NEGATIVE (NEGATIVE); UROBILINOGEN NORMAL (NORMAL)
[2017-02-10 15:05] LABS: ALBUMIN 3.9 g/dL (3.4-5.0); ANION GAP 14.2 mmol/L (8-16); BILIRUBIN - TOTAL 0.3 mg/dL (0.2-1.3); CALCIUM 9.4 mg/dL (8.5-10.1); CARBON DIOXIDE 24.8 mmol/L (21.0-32.0); CREATININE - SERUM 0.9 mg/dL (0.6-1.3); PROTEIN - SERUM 8.3 g/dL (6.4-8.2)
[2017-02-10 15:12] LABS: EPITHELIAL CELLS 0-5 /hpf (0-5); RED CELLS - URINE >50 /hpf (0-5); WHITE CELLS - URINE 0-5 /hpf (0-5)
[2017-02-10 15:14] LABS: BACTERIA MANY /hpf (NONE SEEN)
== END 2017-02-10 19:08 | disposition home or self-care (01) ==
LOC: D.ER 14:13
PROVIDERS: Emergency Medicine
DX: N23 Unspecified renal colic (principal); E11.9 Type 2 diabetes mellitus without complications

== ENCOUNTER 2017-03-08 13:47 | Emergency (ER) | payer MEDICAID ==
[2016-12-17 10:42] VITALS: BMI 42.2
[2017-03-08 15:28] LABS: APPEARANCE HAZY (CLEAR); BILIRUBIN NEGATIVE (NEGATIVE); COLOR YELLOW (YELLOW); EPITHELIAL CELLS 0-5 /hpf (0-5); GLUCOSE NEGATIVE (NEGATIVE); KETONE NEGATIVE (NEGATIVE); LEUKOCYTE ESTERASE NEGATIVE (NEGATIVE); NITRITE NEGATIVE (NEGATIVE); PROTEIN NEGATIVE (NEGATIVE); RED CELLS - URINE >50 /hpf (0-5); UROBILINOGEN NORMAL (NORMAL); WHITE CELLS - URINE 0-5 /hpf (0-5)
[2017-03-08 15:29] LABS: BACTERIA FEW /hpf (NONE SEEN)
== END 2017-03-08 19:53 | disposition home or self-care (01) ==
LOC: D.ER 13:47
PROVIDERS: Emergency Medicine
DX: M54.5 Low back pain (principal); M54.10 Radiculopathy, site unspecified; E11.9 Type 2 diabetes mellitus without complications

== ENCOUNTER 2017-03-27 14:55 | Emergency (ER) | payer MEDICAID ==
[2016-12-17 10:42] VITALS: BMI 42.2
== END 2017-03-27 17:28 | disposition home or self-care (01) ==
LOC: D.ER 14:55
DX: S30.0XXA Contusion of lower back and pelvis, initial encounter (principal); X58.XXXA Exposure to other specified factors, initial encounter; Y93.89 Activity, other specified; Y92.019 Unspecified place in single-family (private) house as the place of occurrence of the external cause

== ENCOUNTER 2017-04-26 13:18 | Emergency (ER) | payer MEDICAID ==
[2016-12-17 10:42] VITALS: BMI 42.2
== END 2017-04-26 14:21 | disposition home or self-care (01) ==
LOC: D.ER 13:18
DX: S09.93XA Unspecified injury of face, initial encounter (principal); Y04.2XXA Assault by strike against or bumped into by another person, initial encounter; Y93.89 Activity, other specified; Y92.89 Other specified places as the place of occurrence of the external cause; S49.91XA Unspecified injury of right shoulder and upper arm, initial encounter; M54.5 Low back pain; E11.9 Type 2 diabetes mellitus without complications

== ENCOUNTER 2017-05-02 11:06 | Emergency (ER) | payer MEDICAID ==
[2016-12-17 10:42] VITALS: BMI 42.2
== END 2017-05-02 13:18 | disposition home or self-care (01) ==
LOC: D.ER 11:06
DX: R51 Headache (principal)

== ENCOUNTER 2017-05-17 13:12 | Emergency (ER) | payer MEDICAID ==
[2016-12-17 10:42] VITALS: BMI 42.2
== END 2017-05-17 14:53 | disposition home or self-care (01) ==
LOC: D.ER 13:12
DX: T25.022A Burn of unspecified degree of left foot, initial encounter (principal); X12.XXXA Contact with other hot fluids, initial encounter; Y93.89 Activity, other specified; Y92.019 Unspecified place in single-family (private) house as the place of occurrence of the external cause; E11.9 Type 2 diabetes mellitus without complications

== ENCOUNTER 2017-05-29 16:51 | Emergency (ER) | payer MEDICAID ==
[2016-12-17 10:42] VITALS: BMI 42.2
[2017-05-29 18:38] LABS: BASOPHILS 0.2 % (0-2); EOSINOPHILS 0.6 % (0-7); IMMATURE GRANULOCYTES 0.2 % (0-5); LYMPHOCYTES 24.9 % (15-50); MCH 27.5 pg (26.0-34.0); MCHC 32.4 g/dL (31.0-37.0); MCV 84.9 fL (80.0-100.0); MEAN PLATELET VOLUME 9.9 fL (7.4-10.4); MONOCYTES 6.5 % (2-11); NEUTROPHILS 67.6 % (40-80); PLATELET COUNT 205 10x3/uL (130-400); RBC 4.36 10x6/uL (4.00-5.40); RDW 14.9 % (11.5-14.5); WBC 8.2 10x3/uL (4.8-10.8)
[2017-05-29 18:53] LABS: ALBUMIN 3.5 g/dL (3.4-5.0); ANION GAP 14.3 mmol/L (8-16); BILIRUBIN - TOTAL 0.3 mg/dL (0.2-1.3); CALCIUM 9.1 mg/dL (8.5-10.1); CARBON DIOXIDE 22.3 mmol/L (21.0-32.0); POTASSIUM - SERUM 3.6 mmol/L (3.5-5.1)
[2017-05-29 20:43] LABS: APPEARANCE HAZY (CLEAR); BILIRUBIN NEGATIVE (NEGATIVE); COLOR YELLOW (YELLOW); GLUCOSE NEGATIVE (NEGATIVE); KETONE NEGATIVE (NEGATIVE); LEUKOCYTE ESTERASE TRACE (NEGATIVE); NITRITE NEGATIVE (NEGATIVE); PROTEIN NEGATIVE (NEGATIVE); SPECIFIC GRAVITY 1.025 (1.005-1.020); UROBILINOGEN NORMAL (NORMAL)
[2017-05-29 20:44] LABS: BACTERIA MANY /hpf (NONE SEEN); RED CELLS - URINE >50 /hpf (0-5); WHITE CELLS - URINE >50 /hpf (0-5)
== END 2017-05-29 21:04 | disposition home or self-care (01) ==
LOC: D.ER 16:51
PROVIDERS: Emergency Medicine
DX: N23 Unspecified renal colic (principal); R10.9 Unspecified abdominal pain

== ENCOUNTER 2017-06-13 20:03 | Emergency (ER) | payer MEDICAID ==
[2016-12-17 10:42] VITALS: BMI 42.2
[2017-06-13 20:22] LABS: APPEARANCE HAZY (CLEAR); BILIRUBIN NEGATIVE (NEGATIVE); COLOR AMBER (YELLOW); GLUCOSE NEGATIVE (NEGATIVE); KETONE NEGATIVE (NEGATIVE); LEUKOCYTE ESTERASE TRACE (NEGATIVE); NITRITE NEGATIVE (NEGATIVE); PROTEIN NEGATIVE (NEGATIVE); SPECIFIC GRAVITY 1.025 (1.005-1.020); UROBILINOGEN NORMAL (NORMAL)
[2017-06-13 20:24] LABS: RED CELLS - URINE >50 /hpf (0-5); WHITE CELLS - URINE 0-5 /hpf (0-5)
[2017-06-13 20:26] LABS: BACTERIA FEW /hpf (NONE SEEN); EPITHELIAL CELLS 0-5 /hpf (0-5)
[2017-06-13 20:30] LABS: BASOPHILS 0.3 % (0-2); EOSINOPHILS 0.6 % (0-7); HEMATOCRIT 38.8 % (36.0-48.0); HEMOGLOBIN 12.7 g/dL (12-16); IMMATURE GRANULOCYTES 0.3 % (0-5); LYMPHOCYTES 28.2 % (15-50); MCH 27.6 pg (26.0-34.0); MCHC 32.7 g/dL (31.0-37.0); MCV 84.3 fL (80.0-100.0); MEAN PLATELET VOLUME 9.4 fL (7.4-10.4); MONOCYTES 6.4 % (2-11); NEUTROPHILS 64.2 % (40-80); PLATELET COUNT 206 10x3/uL (130-400); RDW 15.6 % (11.5-14.5); WBC 10.9 10x3/uL (4.8-10.8)
[2017-06-13 20:47] LABS: HCG SERUM NEGATIVE (NEGATIVE)
[2017-06-13 20:55] LABS: ALBUMIN 4.1 g/dL (3.4-5.0); ANION GAP 16.1 mmol/L (8-16); BILIRUBIN - TOTAL 0.43 mg/dL (0.2-1.3); CALCIUM 9.1 mg/dL (8.5-10.1); CARBON DIOXIDE 23.9 mmol/L (21.0-32.0); CREATININE - SERUM 0.9 mg/dL (0.6-1.3)
[2017-06-16 18:09] LABS: CHLAMYDIA TRACHOMATIS, NAA Negative (Negative)
== END 2017-06-13 22:58 | disposition home or self-care (01) ==
LOC: D.ER 20:03
PROVIDERS: Family Medicine
DX: R10.9 Unspecified abdominal pain (principal); R30.0 Dysuria; N23 Unspecified renal colic; F17.200 Nicotine dependence, unspecified, uncomplicated

== ENCOUNTER 2017-08-16 19:35 | Emergency (ER) | payer MEDICAID ==
[2016-12-17 10:42] VITALS: BMI 42.2
[2017-08-16 20:09] LABS: APPEARANCE HAZY (CLEAR); BILIRUBIN NEGATIVE (NEGATIVE); COLOR YELLOW/PINK (YELLOW); GLUCOSE NEGATIVE (NEGATIVE); KETONE NEGATIVE (NEGATIVE); NITRITE NEGATIVE (NEGATIVE); PROTEIN TRACE mg/dL (NEGATIVE); UROBILINOGEN NORMAL (NORMAL)
[2017-08-16 20:13] LABS: BACTERIA FEW /hpf (NONE SEEN); EPITHELIAL CELLS 0-5 /hpf (0-5); HYALINE CAST OCC /lpf (NONE SEEN); RED CELLS - URINE 25-50 /hpf (0-5)
== END 2017-08-16 23:23 | disposition home or self-care (01) ==
LOC: D.ER 19:35
PROVIDERS: Family Medicine
DX: N39.0 Urinary tract infection, site not specified (principal)

== ENCOUNTER 2017-09-01 23:37 | Emergency (ER) | payer MEDICAID ==
[2016-12-17 10:42] VITALS: BMI 42.2
== END 2017-09-02 00:42 | disposition home or self-care (01) ==
LOC: D.ER 23:37
DX: M54.30 Sciatica, unspecified side (principal); M62.838 Other muscle spasm

== ENCOUNTER 2017-09-25 21:52 | Emergency (ER) | payer MEDICAID ==
[2016-12-17 10:42] VITALS: BMI 42.2
[2017-09-25 22:22] LABS: BASOPHILS 0.2 % (0-2); EOSINOPHILS 0.8 % (0-7); HEMATOCRIT 36.1 % (36.0-48.0); HEMOGLOBIN 11.8 g/dL (12-16); IMMATURE GRANULOCYTES 0.3 % (0-5); LYMPHOCYTES 29.8 % (15-50); MCH 27.4 pg (26.0-34.0); MCHC 32.7 g/dL (31.0-37.0); MCV 83.8 fL (80.0-100.0); MEAN PLATELET VOLUME 9.4 fL (7.4-10.4); MONOCYTES 5.2 % (2-11); NEUTROPHILS 63.7 % (40-80); PLATELET COUNT 187 10x3/uL (130-400); RBC 4.31 10x6/uL (4.00-5.40); RDW 14.9 % (11.5-14.5)
[2017-09-25 22:23] LABS: APPEARANCE HAZY (CLEAR); BILIRUBIN NEGATIVE (NEGATIVE); COLOR RED (YELLOW); GLUCOSE NEGATIVE (NEGATIVE); KETONE NEGATIVE (NEGATIVE); NITRITE NEGATIVE (NEGATIVE); PROTEIN NEGATIVE (NEGATIVE); RED CELLS - URINE >50 /hpf (0-5); UROBILINOGEN NORMAL (NORMAL)
[2017-09-25 22:33] LABS: ALBUMIN 3.8 g/dL (3.4-5.0); BILIRUBIN - TOTAL 0.29 mg/dL (0.2-1.3); CALCIUM 9.4 mg/dL (8.5-10.1); CARBON DIOXIDE 25.5 mmol/L (21.0-32.0); CREATININE - SERUM 0.9 mg/dL (0.6-1.3); POTASSIUM - SERUM 3.5 mmol/L (3.5-5.1)
== END 2017-09-26 00:35 | disposition home or self-care (01) ==
LOC: D.ER 21:52
PROVIDERS: Family Medicine
DX: N23 Unspecified renal colic (principal); I10 Essential (primary) hypertension

== ENCOUNTER 2017-10-03 22:22 | Emergency (ER) | payer MEDICAID ==
[2016-12-17 10:42] VITALS: BMI 42.2
== END 2017-10-03 23:45 | disposition home or self-care (01) ==
LOC: D.ER 22:22
DX: S90.32XA Contusion of left foot, initial encounter (principal); W20.8XXA Other cause of strike by thrown, projected or falling object, initial encounter; Y93.89 Activity, other specified; Y92.89 Other specified places as the place of occurrence of the external cause; S92.342A Displaced fracture of fourth metatarsal bone, left foot, initial encounter for closed fracture; I10 Essential (primary) hypertension

== ENCOUNTER 2017-10-31 20:10 | Emergency (ER) | payer MEDICAID ==
[2016-12-17 10:42] VITALS: BMI 42.2
[2017-10-31 21:08] LABS: BASOPHILS 0.3 % (0-2); EOSINOPHILS 0.7 % (0-7); HEMATOCRIT 34.3 % (36.0-48.0); HEMOGLOBIN 11.2 g/dL (12-16); IMMATURE GRANULOCYTES 0.4 % (0-5); LYMPHOCYTES 31.5 % (15-50); MCH 27.1 pg (26.0-34.0); MCHC 32.7 g/dL (31.0-37.0); MCV 82.9 fL (80.0-100.0); MEAN PLATELET VOLUME 9.8 fL (7.4-10.4); MONOCYTES 5.5 % (2-11); NEUTROPHILS 61.6 % (40-80); PLATELET COUNT 194 10x3/uL (130-400); RBC 4.14 10x6/uL (4.00-5.40); RDW 14.9 % (11.5-14.5); WBC 7.1 10x3/uL (4.8-10.8)
[2017-10-31 21:15] LABS: APPEARANCE HAZY (CLEAR); BILIRUBIN NEGATIVE (NEGATIVE); COLOR YELLOW (YELLOW); GLUCOSE NEGATIVE (NEGATIVE); KETONE NEGATIVE (NEGATIVE); NITRITE NEGATIVE (NEGATIVE); PH 5.5 (5.0-6.0); PROTEIN NEGATIVE (NEGATIVE); SPECIFIC GRAVITY 1.015 (1.005-1.020); UROBILINOGEN NORMAL (NORMAL)
[2017-10-31 21:17] LABS: ALBUMIN 3.8 g/dL (3.4-5.0); ANION GAP 15.3 mmol/L (8-16); BILIRUBIN - TOTAL 0.18 mg/dL (0.2-1.3); CALCIUM 9.2 mg/dL (8.5-10.1); CARBON DIOXIDE 22.6 mmol/L (21.0-32.0); CREATININE - SERUM 0.9 mg/dL (0.6-1.3); POTASSIUM - SERUM 3.9 mmol/L (3.5-5.1); PROTEIN - SERUM 7.9 g/dL (6.4-8.2)
[2017-10-31 21:29] LABS: BACTERIA MODERATE /hpf (NONE SEEN); GRANULAR CAST RARE /lpf (NONE SEEN); HYALINE CAST RARE /lpf (NONE SEEN); RED CELLS - URINE >50 /hpf (0-5)
[2017-10-31 23:13] LABS: UDS - AMPHET NEGATIVE QUAL (NEGATIVE); UDS - BARB NEGATIVE QUAL (NEGATIVE); UDS - BENZO POSITIVE QUAL (NEGATIVE); UDS - COCAINE NEGATIVE QUAL (NEGATIVE); UDS - OPIATE NEGATIVE QUAL (NEGATIVE); UDS - PCP NEGATIVE QUAL (NEGATIVE); UDS - THC NEGATIVE QUAL (NEGATIVE)
== END 2017-10-31 23:15 | disposition home or self-care (01) ==
LOC: D.ER 20:10
PROVIDERS: Family Medicine
DX: N39.0 Urinary tract infection, site not specified (principal); E11.9 Type 2 diabetes mellitus without complications

== ENCOUNTER 2017-11-25 17:21 | Emergency (ER) | payer MEDICAID ==
[2016-12-17 10:42] VITALS: BMI 42.2
== END 2017-11-25 19:00 | disposition home or self-care (01) ==
LOC: D.ER 17:21
DX: S83.91XA Sprain of unspecified site of right knee, initial encounter (principal); W01.0XXA Fall on same level from slipping, tripping and stumbling without subsequent striking against object, initial encounter; Y93.89 Activity, other specified; Y92.010 Kitchen of single-family (private) house as the place of occurrence of the external cause; E11.9 Type 2 diabetes mellitus without complications

== ENCOUNTER 2017-12-01 23:06 | Emergency (ER) | payer MEDICAID ==
[2016-12-17 10:42] VITALS: BMI 42.2
== END 2017-12-02 00:40 | disposition home or self-care (01) ==
LOC: D.ER 23:06
DX: S39.012A Strain of muscle, fascia and tendon of lower back, initial encounter (principal); X58.XXXA Exposure to other specified factors, initial encounter; Y93.89 Activity, other specified; Y92.89 Other specified places as the place of occurrence of the external cause; M54.30 Sciatica, unspecified side; E11.9 Type 2 diabetes mellitus without complications

== ENCOUNTER 2017-12-18 01:07 | Emergency (ER) | payer MEDICAID ==
[2016-12-17 10:42] VITALS: BMI 42.2
[2017-12-18 01:32] LABS: BASOPHILS 0.5 % (0-2); EOSINOPHILS 1.3 % (0-7); HEMATOCRIT 35.1 % (36.0-48.0); HEMOGLOBIN 11.3 g/dL (12-16); IMMATURE GRANULOCYTES 0.3 % (0-5); LYMPHOCYTES 31.3 % (15-50); MCH 26.4 pg (26.0-34.0); MCHC 32.2 g/dL (31.0-37.0); MEAN PLATELET VOLUME 9.2 fL (7.4-10.4); MONOCYTES 7.3 % (2-11); NEUTROPHILS 59.3 % (40-80); PLATELET COUNT 164 10x3/uL (130-400); RBC 4.28 10x6/uL (4.00-5.40); RDW 14.4 % (11.5-14.5); WBC 6.4 10x3/uL (4.8-10.8)
[2017-12-18 01:32] LABS: APPEARANCE TURBID (CLEAR); BILIRUBIN NEGATIVE (NEGATIVE); COLOR DK YELLOW (YELLOW); GLUCOSE NEGATIVE (NEGATIVE); KETONE NEGATIVE (NEGATIVE); NITRITE NEGATIVE (NEGATIVE); PROTEIN TRACE mg/dL (NEGATIVE); UROBILINOGEN NORMAL (NORMAL)
[2017-12-18 01:33] LABS: BACTERIA NONE SEEN /hpf (NONE SEEN); EPITHELIAL CELLS RARE /hpf (0-5); RED CELLS - URINE >50 /hpf (0-5)
[2017-12-18 01:46] LABS: ALBUMIN 3.7 g/dL (3.4-5.0); ANION GAP 18.2 mmol/L (8-16); BILIRUBIN - TOTAL 0.41 mg/dL (0.2-1.3); CALCIUM 9.1 mg/dL (8.5-10.1); CARBON DIOXIDE 21.4 mmol/L (21.0-32.0); CREATININE - SERUM 1.1 mg/dL (0.6-1.3); POTASSIUM - SERUM 3.6 mmol/L (3.5-5.1); PROTEIN - SERUM 7.9 g/dL (6.4-8.2)
== END 2017-12-18 03:25 | disposition home or self-care (01) ==
LOC: D.ER 01:07
PROVIDERS: Family Medicine
DX: N20.1 Calculus of ureter (principal); N23 Unspecified renal colic; E11.9 Type 2 diabetes mellitus without complications

== ENCOUNTER 2018-01-12 19:56 | Emergency (ER) | payer MEDICARE, MEDICAID ==
[2016-12-17 10:42] VITALS: BMI 42.2
[2018-01-12 21:03] LABS: BASOPHILS 0.3 % (0-2); EOSINOPHILS 0.7 % (0-7); HEMATOCRIT 37.4 % (36.0-48.0); HEMOGLOBIN 12.2 g/dL (12-16); IMMATURE GRANULOCYTES 0.4 % (0-5); LYMPHOCYTES 32.1 % (15-50); MCH 27.2 pg (26.0-34.0); MCHC 32.6 g/dL (31.0-37.0); MCV 83.3 fL (80.0-100.0); MEAN PLATELET VOLUME 10.1 fL (7.4-10.4); MONOCYTES 6.2 % (2-11); NEUTROPHILS 60.3 % (40-80); PLATELET COUNT 189 10x3/uL (130-400); RBC 4.49 10x6/uL (4.00-5.40); RDW 14.5 % (11.5-14.5); WBC 6.9 10x3/uL (4.8-10.8)
[2018-01-12 21:25] LABS: ALBUMIN 3.8 g/dL (3.4-5.0); ANION GAP 16.5 mmol/L (8-16); BILIRUBIN - TOTAL 0.3 mg/dL (0.2-1.3); CALCIUM 9.2 mg/dL (8.5-10.1); CARBON DIOXIDE 22.3 mmol/L (21.0-32.0); CREATININE - SERUM 0.9 mg/dL (0.6-1.3); POTASSIUM - SERUM 3.8 mmol/L (3.5-5.1); PROTEIN - SERUM 8.2 g/dL (6.4-8.2)
[2018-01-12 21:29] LABS: APPEARANCE CLEAR (CLEAR); BILIRUBIN NEGATIVE (NEGATIVE); COLOR PINK (YELLOW); GLUCOSE NEGATIVE (NEGATIVE); KETONE NEGATIVE (NEGATIVE); NITRITE NEGATIVE (NEGATIVE); PROTEIN TRACE mg/dL (NEGATIVE); UROBILINOGEN NORMAL (NORMAL)
[2018-01-12 21:30] LABS: BACTERIA FEW /hpf (NONE SEEN); RED CELLS - URINE 25-50 /hpf (0-5); WHITE CELLS - URINE 0-5 /hpf (0-5)
== END 2018-01-12 23:10 | disposition home or self-care (01) ==
LOC: D.ER 19:56
PROVIDERS: Family Medicine
DX: N23 Unspecified renal colic (principal); R10.9 Unspecified abdominal pain

== ENCOUNTER 2018-01-26 15:37 | Emergency (ER) | payer MEDICARE ==
[2016-12-17 10:42] VITALS: BMI 42.2
== END 2018-01-26 17:56 | disposition home or self-care (01) ==
LOC: D.ER 15:37
DX: S90.31XA Contusion of right foot, initial encounter (principal); W20.8XXA Other cause of strike by thrown, projected or falling object, initial encounter; Y93.89 Activity, other specified; Y92.019 Unspecified place in single-family (private) house as the place of occurrence of the external cause

== ENCOUNTER → 2018-01-27 10:53 | Outpatient (CLI) | payer MEDICAID ==
[2016-12-17 10:42] VITALS: BMI 42.2
== END | disposition home or self-care (01) ==
LOC: D.RAD 10:45
DX: E11.9 Type 2 diabetes mellitus without complications (principal); Z00.00 Encounter for general adult medical examination without abnormal findings; F32.9 Major depressive disorder, single episode, unspecified; G89.29 Other chronic pain; E66.9 Obesity, unspecified; K21.9 Gastro-esophageal reflux disease without esophagitis

== ENCOUNTER 2018-02-11 13:52 | Emergency (ER) | payer MEDICAID ==
[2016-12-17 10:42] VITALS: BMI 42.2
[2018-02-11 16:01] LABS: APPEARANCE HAZY (CLEAR); BILIRUBIN 1+ (NEGATIVE); COLOR DK YELLOW (YELLOW); GLUCOSE NEGATIVE (NEGATIVE); KETONE NEGATIVE (NEGATIVE); NITRITE NEGATIVE (NEGATIVE); PROTEIN NEGATIVE (NEGATIVE); SPECIFIC GRAVITY 1.015 (1.005-1.020); UROBILINOGEN NORMAL (NORMAL)
[2018-02-11 16:02] LABS: RED CELLS - URINE >50 /hpf (0-5); WHITE CELLS - URINE 0-5 /hpf (0-5)
[2018-02-11 16:03] LABS: EPITHELIAL CELLS 0-5 /hpf (0-5)
[2018-02-11 16:05] LABS: BACTERIA FEW /hpf (NONE SEEN)
== END 2018-02-11 18:36 | disposition home or self-care (01) ==
LOC: D.ER 13:52
PROVIDERS: Emergency Medicine
DX: N39.0 Urinary tract infection, site not specified (principal)

== ENCOUNTER 2018-03-07 22:41 | Emergency (ER) | payer MEDICARE ==
[2016-12-17 10:42] VITALS: BMI 42.2
== END 2018-03-08 01:45 | disposition home or self-care (01) ==
LOC: D.ER 22:41
DX: S30.0XXA Contusion of lower back and pelvis, initial encounter (principal); W22.8XXA Striking against or struck by other objects, initial encounter; Y93.89 Activity, other specified; Y92.019 Unspecified place in single-family (private) house as the place of occurrence of the external cause; M54.16 Radiculopathy, lumbar region

== ENCOUNTER → 2018-03-16 10:06 | Outpatient (CLI) | payer MEDICAID ==
[2016-12-17 10:42] VITALS: BMI 42.2
[~2018-03-16 10:06] MED LIST changes: +NORCO 7.5/325 T1 TA1 PO
[2018-03-16 10:56] LABS: BASOPHILS 0.2 % (0-2); EOSINOPHILS 0.5 % (0-7); HEMATOCRIT 33.9 % (36.0-48.0); IMMATURE GRANULOCYTES 0.2 % (0-5); LYMPHOCYTES 27.2 % (15-50); MCH 26.3 pg (26.0-34.0); MCHC 32.4 g/dL (31.0-37.0); MCV 80.9 fL (80.0-100.0); MEAN PLATELET VOLUME 9.6 fL (7.4-10.4); MONOCYTES 5.2 % (2-11); NEUTROPHILS 66.7 % (40-80); PLATELET COUNT 177 10x3/uL (130-400); RBC 4.19 10x6/uL (4.00-5.40); RDW 14.7 % (11.5-14.5); WBC 6.2 10x3/uL (4.8-10.8)
[2018-03-16 11:04] LABS: APPEARANCE CLEAR (CLEAR); BACTERIA FEW /hpf (NONE SEEN); BILIRUBIN NEGATIVE (NEGATIVE); COLOR YELLOW (YELLOW); EPITHELIAL CELLS 0-5 /hpf (0-5); GLUCOSE NEGATIVE (NEGATIVE); KETONE NEGATIVE (NEGATIVE); MUCUS >1+ /lpf (NONE SEEN); NITRITE NEGATIVE (NEGATIVE); PROTEIN NEGATIVE (NEGATIVE); RED CELLS - URINE 0-5 /hpf (0-5); SPECIFIC GRAVITY 1.015 (1.005-1.020); UROBILINOGEN NORMAL (NORMAL)
[2018-03-16 11:19] LABS: ALBUMIN 3.7 g/dL (3.4-5.0); ALKALINE PHOSPHATASE 175 U/L (46-116); ALT (SGPT) 26 U/L (10-68); CALC OSMOLALITY 279 mosm/kg (275-300); CALCIUM 9.3 mg/dL (8.5-10.1); CARBON DIOXIDE 25.2 mmol/L (21.0-32.0); CHLORIDE - SERUM 104 mmol/L (98-107); CHOLESTEROL, TOTAL 225 mg/dL (0-200); CREATININE - SERUM 0.8 mg/dL (0.6-1.3); GLUCOSE 132 mg/dL (74-106); HDL CHOLESTEROL 57 mg/dL (32-96); LDL CHOLESTEROL 144 mg/dL (0-100); LDL-HDL RATIO 2.5 ratio (1.5-3.5); POTASSIUM - SERUM 4.5 mmol/L (3.5-5.1); PROTEIN - SERUM 7.9 g/dL (6.4-8.2); SODIUM 139 mmol/L (136-145); THYROID STIMULATING HORMONE 1.94 uIU/mL (0.36-3.74); TRIGLYCERIDE 122 mg/dL (30-200); UREA NITROGEN 13 mg/dL (7-18); URIC ACID 4.8 mg/dL (2.6-7.2); eGFR NON AFRICAN AMERICAN 80 mL/min (90-120)
== END | disposition home or self-care (01) ==
LOC: D.LAB 10:06
PROVIDERS: Family Medicine
DX: Z00.00 Encounter for general adult medical examination without abnormal findings (principal); E11.9 Type 2 diabetes mellitus without complications; N20.0 Calculus of kidney

== ENCOUNTER 2018-04-24 15:32 | Emergency (ER) | payer MEDICAID ==
[~2018-04-24] VITALS: Ht 167.6 cm; Wt 128.6 kg
[~2018-04-24 15:32] MED LIST changes: -NORCO 7.5/325 T1 TA1 PO
[2018-04-24 16:35] VITALS: Ht 167.6 cm; Wt 128.6 kg
[2018-04-24 17:08] LABS: BASOPHILS 0.4 % (0-2); EOSINOPHILS 0.7 % (0-7); HEMATOCRIT 34.8 % (36.0-48.0); HEMOGLOBIN 11.4 g/dL (12-16); IMMATURE GRANULOCYTES 0.2 % (0-5); LYMPHOCYTES 29.7 % (15-50); MCH 26.3 pg (26.0-34.0); MCHC 32.8 g/dL (31.0-37.0); MCV 80.4 fL (80.0-100.0); MEAN PLATELET VOLUME 9.8 fL (7.4-10.4); MONOCYTES 6.1 % (2-11); NEUTROPHILS 62.9 % (40-80); PLATELET COUNT 208 10x3/uL (130-400); RBC 4.33 10x6/uL (4.00-5.40); WBC 8.2 10x3/uL (4.8-10.8)
[2018-04-24 17:11] LABS: APPEARANCE HAZY (CLEAR); BILIRUBIN NEGATIVE (NEGATIVE); COLOR YELLOW (YELLOW); GLUCOSE NEGATIVE (NEGATIVE); KETONE NEGATIVE (NEGATIVE); NITRITE NEGATIVE (NEGATIVE); PROTEIN NEGATIVE (NEGATIVE); SPECIFIC GRAVITY 1.025 (1.005-1.020); UROBILINOGEN NORMAL (NORMAL)
[2018-04-24 17:24] LABS: BACTERIA MODERATE /hpf (NONE SEEN); EPITHELIAL CELLS OCC /hpf (0-5); HYALINE CAST OCC /lpf (NONE SEEN); RED CELLS - URINE >50 /hpf (0-5); WHITE CELLS - URINE 0-5 /hpf (0-5)
[2018-04-24 17:33] LABS: ALKALINE PHOSPHATASE 184 U/L (46-116); ALT (SGPT) 31 U/L (10-68); BILIRUBIN - TOTAL 0.39 mg/dL (0.2-1.3); CALC OSMOLALITY 282 mosm/kg (275-300); CALCIUM 9.3 mg/dL (8.5-10.1); CARBON DIOXIDE 24.8 mmol/L (21.0-32.0); CHLORIDE - SERUM 105 mmol/L (98-107); CREATININE - SERUM 0.8 mg/dL (0.6-1.3); GLUCOSE 131 mg/dL (74-106); POTASSIUM - SERUM 3.9 mmol/L (3.5-5.1); PROTEIN - SERUM 8.4 g/dL (6.4-8.2); SODIUM 141 mmol/L (136-145); UREA NITROGEN 12 mg/dL (7-18); eGFR NON AFRICAN AMERICAN 80 mL/min (90-120)
[2018-04-24] MEDS ORDERED: NORCO 7.5/325 T1 TA1 PO (19:59)
[2018-04-24 23:53] VITALS: BP 132/78
== END 2018-04-24 21:10 | disposition home or self-care (01) ==
LOC: D.ER 15:32
PROVIDERS: Family Medicine
DX: N23 Unspecified renal colic (principal); R10.9 Unspecified abdominal pain; E11.9 Type 2 diabetes mellitus without complications; I10 Essential (primary) hypertension

== ENCOUNTER 2018-05-21 22:50 | Emergency (ER) | payer MEDICAID ==
[~2018-05-21] VITALS: Ht 167.6 cm; Wt 127.3 kg
[~2018-05-21 22:50] MED LIST changes: +NORCO 7.5/325 T1 TA1 PO
[2018-05-21 23:17] VITALS: Ht 167.6 cm; Wt 127.3 kg
[2018-05-21 23:50] LABS: BASOPHILS 0.3 % (0-2); EOSINOPHILS 0.7 % (0-7); HEMATOCRIT 35.7 % (36.0-48.0); HEMOGLOBIN 11.8 g/dL (12-16); IMMATURE GRANULOCYTES 0.3 % (0-5); LYMPHOCYTES 29.4 % (15-50); MCH 26.3 pg (26.0-34.0); MCHC 33.1 g/dL (31.0-37.0); MCV 79.5 fL (80.0-100.0); MEAN PLATELET VOLUME 10.1 fL (7.4-10.4); MONOCYTES 6.3 % (2-11); RBC 4.49 10x6/uL (4.00-5.40); WBC 11.4 10x3/uL (4.8-10.8)
[2018-05-21 23:54] LABS: PLATELET COUNT 251 10x3/uL (130-400)
[2018-05-22 00:02] LABS: APPEARANCE HAZY (CLEAR); BILIRUBIN NEGATIVE (NEGATIVE); COLOR YELLOW (YELLOW); GLUCOSE NEGATIVE (NEGATIVE); KETONE NEGATIVE (NEGATIVE); NITRITE NEGATIVE (NEGATIVE); PROTEIN NEGATIVE (NEGATIVE); SPECIFIC GRAVITY 1.015 (1.005-1.020); UROBILINOGEN NORMAL (NORMAL)
[2018-05-22 00:03] LABS: BACTERIA NONE SEEN /hpf (NONE SEEN); EPITHELIAL CELLS RARE /hpf (0-5); RED CELLS - URINE >50 /hpf (0-5); WHITE CELLS - URINE RARE /hpf (0-5)
[2018-05-22 00:04] LABS: CALCIUM OXALATE CRYSTALS OCC /hpf (NONE SEEN)
[2018-05-22 00:09] LABS: ALBUMIN 3.9 g/dL (3.4-5.0); BILIRUBIN - TOTAL 0.45 mg/dL (0.2-1.3); CALCIUM 9.2 mg/dL (8.5-10.1); CARBON DIOXIDE 23.7 mmol/L (21.0-32.0); CREATININE - SERUM 0.9 mg/dL (0.6-1.3); POTASSIUM - SERUM 3.7 mmol/L (3.5-5.1); PROTEIN - SERUM 8.5 g/dL (6.4-8.2)
[2018-05-22] MEDS ORDERED: NORCO 7.5/325 T1 TA1 PO (02:36)
[2018-05-22 03:00] VITALS: BP 127/84
== END 2018-05-22 03:01 | disposition home or self-care (01) ==
LOC: D.ER 22:50
PROVIDERS: Emergency Medicine
DX: R31.9 Hematuria, unspecified (principal); Z12.6 Encounter for screening for malignant neoplasm of bladder; E11.9 Type 2 diabetes mellitus without complications; I10 Essential (primary) hypertension; K21.9 Gastro-esophageal reflux disease without esophagitis

== ENCOUNTER 2018-06-29 09:02 | Emergency (ER) | payer MEDICAID ==
[~2018-06-29] VITALS: Ht 167.6 cm; Wt 127.7 kg
[2018-06-29 09:21] VITALS: Ht 167.6 cm; Wt 127.7 kg
[2018-06-29 09:57] LABS: BASOPHILS 0.4 % (0-2); EOSINOPHILS 0.8 % (0-7); HEMATOCRIT 32.3 % (36.0-48.0); HEMOGLOBIN 10.4 g/dL (12-16); IMMATURE GRANULOCYTES 0.2 % (0-5); LYMPHOCYTES 30.8 % (15-50); MCH 25.4 pg (26.0-34.0); MCHC 32.2 g/dL (31.0-37.0); MCV 78.8 fL (80.0-100.0); MEAN PLATELET VOLUME 9.9 fL (7.4-10.4); MONOCYTES 6.2 % (2-11); NEUTROPHILS 61.6 % (40-80); RDW 15.3 % (11.5-14.5); WBC 5.2 10x3/uL (4.8-10.8)
[2018-06-29 10:02] LABS: PLATELET COUNT 168 10x3/uL (130-400)
[2018-06-29 10:18] LABS: ALBUMIN 3.7 g/dL (3.4-5.0); ALKALINE PHOSPHATASE 162 U/L (46-116); ALT (SGPT) 30 U/L (10-68); BILIRUBIN - TOTAL 0.26 mg/dL (0.2-1.3); CALC OSMOLALITY 275 mosm/kg (275-300); CALCIUM 8.8 mg/dL (8.5-10.1); CARBON DIOXIDE 22.1 mmol/L (21.0-32.0); CHLORIDE - SERUM 104 mmol/L (98-107); CREATININE - SERUM 0.8 mg/dL (0.6-1.3); GLUCOSE 154 mg/dL (74-106); POTASSIUM - SERUM 3.8 mmol/L (3.5-5.1); PROTEIN - SERUM 7.9 g/dL (6.4-8.2); SODIUM 137 mmol/L (136-145); UREA NITROGEN 11 mg/dL (7-18); eGFR NON AFRICAN AMERICAN 80 mL/min (90-120)
[2018-06-29 10:19] LABS: APPEARANCE HAZY (CLEAR); COLOR YELLOW (YELLOW); SPECIFIC GRAVITY 1.025 (1.005-1.020)
[2018-06-29 10:20] LABS: BILIRUBIN NEGATIVE (NEGATIVE); GLUCOSE NEGATIVE (NEGATIVE); KETONE NEGATIVE (NEGATIVE); NITRITE NEGATIVE (NEGATIVE); PROTEIN NEGATIVE (NEGATIVE); UROBILINOGEN NORMAL (NORMAL)
[2018-06-29 10:24] LABS: BACTERIA FEW /hpf (NONE SEEN); EPITHELIAL CELLS 0-5 /hpf (0-5); RED CELLS - URINE >50 /hpf (0-5)
[2018-06-29] MEDS ORDERED: ZOFRAN ODT4 MG/UDTAB PO (12:29)
[2018-06-29] MEDS ORDERED: TYLENOL W/CODEI1 TAB PO (12:29)
[2018-06-29] MEDS ORDERED: CIPRO500 MG PO (12:29)
[2018-06-29 13:11] VITALS: BP 132/88
== END 2018-06-29 13:12 | disposition home or self-care (01) ==
LOC: D.ER 09:02
PROVIDERS: Emergency Medicine
DX: N23 Unspecified renal colic (principal); E11.9 Type 2 diabetes mellitus without complications; I10 Essential (primary) hypertension; K21.9 Gastro-esophageal reflux disease without esophagitis

== ENCOUNTER 2018-07-11 19:50 | Emergency (ER) | payer MEDICAID ==
[~2018-07-11] VITALS: Ht 167.6 cm; Wt 128.6 kg
[~2018-07-11 19:50] MED LIST changes: +CIPRO500 MG PO; +TYLENOL W/CODEI1 TAB PO; +ZOFRAN ODT4 MG/UDTAB PO
[2018-07-11 20:05] VITALS: Ht 167.6 cm; Wt 128.6 kg
[2018-07-11] MEDS ORDERED: TORADOL10 MG PO (22:03)
[2018-07-11 23:35] VITALS: BP 134/87
== END 2018-07-11 23:31 | disposition home or self-care (01) ==
LOC: D.ER 19:50
DX: M54.2 Cervicalgia (principal); S20.229A Contusion of unspecified back wall of thorax, initial encounter; W18.30XA Fall on same level, unspecified, initial encounter; Y93.89 Activity, other specified; Y92.012 Bathroom of single-family (private) house as the place of occurrence of the external cause; M54.6 Pain in thoracic spine; E11.9 Type 2 diabetes mellitus without complications; I10 Essential (primary) hypertension; K21.9 Gastro-esophageal reflux disease without esophagitis

== ENCOUNTER 2018-09-05 00:59 | Emergency (ER) | payer MEDICAID ==
[~2018-09-05] VITALS: Ht 167.6 cm; Wt 128.6 kg
[~2018-09-05 00:59] MED LIST changes: +TORADOL10 MG PO
[2018-09-05 01:03] VITALS: Ht 167.6 cm; Wt 128.6 kg
[2018-09-05 02:31] VITALS: BP 140/70
== END 2018-09-05 02:34 | disposition home or self-care (01) ==
LOC: D.ER 00:59
DX: G43.909 Migraine, unspecified, not intractable, without status migrainosus (principal); R11.2 Nausea with vomiting, unspecified; E11.9 Type 2 diabetes mellitus without complications; I10 Essential (primary) hypertension

== ENCOUNTER 2018-10-02 21:35 | Emergency (ER) | payer MEDICAID ==
[~2018-10-02] VITALS: Ht 167.6 cm; Wt 128.6 kg
[2018-10-02 21:39] VITALS: Ht 167.6 cm; Wt 128.6 kg
[2018-10-02 22:12] LABS: BASOPHILS 0.1 % (0-2); EOSINOPHILS 0.9 % (0-7); HEMATOCRIT 33.7 % (36.0-48.0); HEMOGLOBIN 10.7 g/dL (12-16); IMMATURE GRANULOCYTES 0.1 % (0-5); LYMPHOCYTES 33.7 % (15-50); MCH 25.2 pg (26.0-34.0); MCHC 31.8 g/dL (31.0-37.0); MCV 79.5 fL (80.0-100.0); MEAN PLATELET VOLUME 10.3 fL (7.4-10.4); MONOCYTES 5.2 % (2-11); RBC 4.24 10x6/uL (4.00-5.40); RDW 15.6 % (11.5-14.5)
[2018-10-02 22:15] LABS: PLATELET COUNT 211 10x3/uL (130-400)
[2018-10-02 22:17] LABS: APPEARANCE HAZY (CLEAR); BILIRUBIN NEGATIVE (NEGATIVE); COLOR RED (YELLOW); GLUCOSE NEGATIVE (NEGATIVE); KETONE NEGATIVE (NEGATIVE); NITRITE NEGATIVE (NEGATIVE); PROTEIN NEGATIVE (NEGATIVE); SPECIFIC GRAVITY 1.005 (1.005-1.020); UROBILINOGEN NORMAL (NORMAL)
[2018-10-02 22:18] LABS: EPITHELIAL CELLS 0-5 /hpf (0-5); WHITE CELLS - URINE RARE /hpf (0-5)
[2018-10-02 22:38] LABS: ALBUMIN 3.5 g/dL (3.4-5.0); ALKALINE PHOSPHATASE 165 U/L (46-116); ALT (SGPT) 27 U/L (10-68); BILIRUBIN - TOTAL 0.13 mg/dL (0.2-1.3); CALC OSMOLALITY 285 mosm/kg (275-300); CALCIUM 8.8 mg/dL (8.5-10.1); CARBON DIOXIDE 23.2 mmol/L (21.0-32.0); CHLORIDE - SERUM 105 mmol/L (98-107); CREATININE - SERUM 1.1 mg/dL (0.6-1.3); GLUCOSE 164 mg/dL (74-106); POTASSIUM - SERUM 4.1 mmol/L (3.5-5.1); PROTEIN - SERUM 8.1 g/dL (6.4-8.2); SODIUM 142 mmol/L (136-145); UREA NITROGEN 10 mg/dL (7-18); eGFR NON AFRICAN AMERICAN 55 mL/min (90-120)
[2018-10-02 22:44] LABS: AMYLASE - SERUM 34 U/L (25-115); LIPASE 193 U/L (73-393); TROPONIN-I < 0.017 ng/mL (0.000-0.060)
[2018-10-03 00:25] VITALS: BP 111/72
== END 2018-10-03 00:27 | disposition home or self-care (01) ==
LOC: D.ER 21:35
PROVIDERS: Family Medicine
DX: R10.30 Lower abdominal pain, unspecified (principal); M54.5 Low back pain; R31.9 Hematuria, unspecified; E11.9 Type 2 diabetes mellitus without complications; I10 Essential (primary) hypertension

== ENCOUNTER → 2018-11-23 12:26 | Outpatient (CLI) | payer MEDICAID ==
[2018-10-02 21:39] VITALS: BMI 45.7
== END | disposition home or self-care (01) ==
LOC: D.RAD 12:26
DX: M25.561 Pain in right knee (principal)

== ENCOUNTER → 2018-11-26 10:28 | Outpatient (CLI) | payer MEDICAID ==
[2018-10-02 21:39] VITALS: BMI 45.7
[2018-11-26 11:03] LABS: BASOPHILS 0.4 % (0-2); HEMATOCRIT 35.6 % (36.0-48.0); HEMOGLOBIN 11.3 g/dL (12-16); IMMATURE GRANULOCYTES 0.1 % (0-5); LYMPHOCYTES 28.9 % (15-50); MCH 24.5 pg (26.0-34.0); MCHC 31.7 g/dL (31.0-37.0); MCV 77.2 fL (80.0-100.0); MEAN PLATELET VOLUME 9.7 fL (7.4-10.4); MONOCYTES 5.5 % (2-11); NEUTROPHILS 64.1 % (40-80); PLATELET COUNT 214 10x3/uL (130-400); RBC 4.61 10x6/uL (4.00-5.40); RDW 15.8 % (11.5-14.5); WBC 6.8 10x3/uL (4.8-10.8)
[2018-11-26 11:31] LABS: ALKALINE PHOSPHATASE 183 U/L (46-116); ALT (SGPT) 25 U/L (10-68); BILIRUBIN - TOTAL 0.37 mg/dL (0.2-1.3); CALC OSMOLALITY 278 mosm/kg (275-300); CALCIUM 9.3 mg/dL (8.5-10.1); CARBON DIOXIDE 22.4 mmol/L (21.0-32.0); CHLORIDE - SERUM 102 mmol/L (98-107); CKMB 1.2 U/L (0.0-3.6); CREATINE KINASE 65 UL (21-215); CREATININE - SERUM 0.8 mg/dL (0.6-1.3); GLUCOSE 147 mg/dL (74-106); PROTEIN - SERUM 8.5 g/dL (6.4-8.2); SODIUM 138 mmol/L (136-145); TROPONIN-I < 0.017 ng/mL (0.000-0.060); UREA NITROGEN 12 mg/dL (7-18); eGFR NON AFRICAN AMERICAN 80 mL/min (90-120)
== END | disposition home or self-care (01) ==
LOC: D.LAB 10:28
PROVIDERS: Family Medicine
DX: R07.9 Chest pain, unspecified (principal); G89.29 Other chronic pain; E11.9 Type 2 diabetes mellitus without complications; K21.9 Gastro-esophageal reflux disease without esophagitis

== ENCOUNTER 2018-12-09 17:33 | Observation (INO) | payer MEDICAID ==
[~2018-12-09] VITALS: Ht 167.6 cm; Wt 118.2 kg
--- NOTE | ~2018-12-09 | HEMODYNAMI ---
PATIENT:REYNALDO FALLON MEDICAL RECORD: [id number] : 67 LOCATION:[address] ADMISSION DATE: 12/09/18 Generatedon:12/10/201815:59 Patient name: REYNALDO FALLON Patient #: [id number] SSN: : 1965 Date of study: 12/10/2018 Page: Of Hemodynamic Procedure Report Patient Data Patient Demographics Procedure consent was obtained First Name: REYNALDO Gender: Female Last Name: VASYL : 1965 [facility] Initial: MICHELLE Age: 53 year(s) Patient #: [id number] Race: Unknown Additional ID: [id number] Contact details [address]: [address] [place] [address] State: [place] City: [place] Zip code: [address] Past Medical History Allergies: No known allergies Admission Admission Data Admission Date: 12/09/2018 Admission Time: 18:33 Room #: 2114 Procedure Procedure Types Cath Procedure Diagnostic Procedure LHC LHC w/Coronaries Procedure Description Procedure Date Procedure Date: 12/10/2018 Procedure Start Time: 15:22 Procedure End Time: 15:33 Procedure Staff Name Function Leonor Love RT Monitor Kike Lira RN Nurse Min Zaman MD Performing Physician Aashish Elizabeth RT Scrub Procedure Data Cath Procedure Fluoroscopy Diagnostic fluoroscopy Total fluoroscopy Time: 1.1 time: 1.1 min min Diagnostic fluoroscopy Total fluoroscopy dose: 189 dose: 189 mGy mGy Contrast Material Contrast Material Type Amount (ml) Isovue 300 52 Entry Location Entry Primary Successful Side Size Upsize Upsize Entry Closure Succes sful Closure Location (Fr) 1 (Fr) 2 (Fr) Remarks Device Remarks Femoral Right 5 Fr Exoseal artery Estimated blood loss: 5 ml Diagnostic catheters Device Type Used For End Catheter Placement MULTIPACK Pigtail 5 Fr LV Angiography catheter MULTIPACK JL 4.0 5Fr Left Coronary catheter Angiography MULTIPACK 3DRC 5Fr Right Coronary catheter Angiography Procedure Complications No complications Procedure Medications Medication Administration Route Dosage Oxygen etCO2 Nasal cannula 2 l/min Lidocaine 2% added to field 20 Heparin Flush Bag added to field 2 bags (1000units/500ml NS) 0.9% NaCl I.V. 100 ml/hr Versed I.V. 2 mg Fentanyl I.V. 100 mcg Versed I.V. 2 mg Fentanyl I.V. 100 mcg Fentanyl I.V. 25 mcg Fentanyl I.V. 100 mcg Hemodynamics Rest Heart Rate: 75 (bpm) Snapshots Pre Cath Intra NCS Post Cath Vital Signs Time Heart Resp SPO2 etCO2 NIBP (mmHg) Rhythm Pain Sedation Rate (ipm) (%) (mmHg) Status Level (bpm) 15:07:48 76 10 96 0 137/93(110) NSR 0 (11) 10(A) , No pain 15:12:35 81 30 93 0 121/86(103) NSR 0 (11) 10(A) , No pain 15:17:14 86 24 92 0 122/77(108) NSR 0 (11) 10(A) , No pain 15:21:52 81 23 92 0 119/80(99) NSR 0 (11) 10(A) , No pain 15:26:29 89 64 93 0 135/85(115) NSR 0 (11) 10(A) , No pain 15:31:14 85 18 94 0 128/85(106) NSR 0 (11) 10(A) , No pain Medications Time Medication Route Dose Verified Delivered Reason Notes E ffectiveness by by 15:08:33 Oxygen etCO2 2 Min Stokes used for Nasal l/min Austyn Lira RN procedure cannula 15:08:39 Lidocaine 2% added 20ml Min Copeland for local to vial Austyn Zaman MD anesthetic field 15:08:45 Heparin Flush added 2 Min Min used for Bag to bags Austyn Zaman MD procedure (1000units/500ml field NS) 15:08:54 0.9% NaCl I.V. 100 Min Nailsie Per ml/hr Austyn Lira RN physician 15:21:06 Fentanyl I.V. 100 Min Nailsie for mcg Austyn Lira RN sedation 15:21:58 Versed I.V. 2 mg Min Stokes for Austyn Lira RN sedation 15:25:14 Versed I.V. 2 mg Min Nailsie for Austyn Lira RN sedation 15:25:18 Fentanyl I.V. 100 Min Stokes for mcg Austyn Lira RN sedation 15:28:31 Fentanyl I.V. 25 Min Stokes for mcg Austyn Lira RN sedation 15:43:35 Fentanyl I.V. 100 Min Stokes for back Holding clay Lira RN pain pressure on rt groin hematoma and pt having pain with pressure to groin, Fentanyl given for groin pain, will continue to monitor. Procedure Log Time Note 14:47:49 Time tracking: Regular hours (M-F 7:00 - 5:00) 14:47:54 Plan of Care:Hemodynamics will remain stable., Cardiac rhythm will remain stable., Comfort level will be maintained., Respiratory function will remain adequate., Patient/ family verbilizes understanding of procedure., Procedure tolerated without complication., Recovers from procedure without complications.. 14:49:52 Aashish Elizabeth RT(R) sent for patient. Start room use. 14:58:14 Patient received from PCU to CCL 3 Alert and oriented. Tansferred to table in Supine position. 14:58:15 Correct patient and procedure confirmed by team. 14:58:15 Warm blankets applied, and alex hugger turned on for patient comfort. 14:58:16 Signed procedure consent form obtained from patient. 14:58:17 ECG and BP/O2 sat monitors applied to patient. 14:58:19 Full Disclosure recording started 15:06:11 Vital chart was started 15:06:16 Rhythm: sinus rhythm 15:06:27 H&P Date Dictated: 12/10/2018 Within 30 days and on chart.. 15:06:30 Pre-op teaching completed and patient verbalized understanding. 15:06:30 Pre-procedure instructions explained to patient. 15:06:32 Family in patients room. 15:06:34 Patient NPO since Midnight. 15:06:39 Patient allergic to No known allergies 15:06:41 Is the patient allergic to Iodine/contrast media? No. 15:06:42 Is patient on blood thinner?No 15:06:43 Patient diabetic? Yes. 15:06:45 If diabetic: On Metformin? No 15:06:48 Snore? Yes 15:06:48 Previous problem with sedation/anesthesia? No ? 15:06:50 Deviated septum? No 15:06:50 Sleep apnea? No 15:06:51 Opens mouth fully? Yes 15:06:52 Sticks out tongue? Yes 15:06:54 Airway obstruction? No ? 15:06:55 Dentures? No ? 15:06:57 Pre procedure: right dorsailis pedis pulse 2+ Normal; easily identifiable; not easily obliterated 15:06:59 Patient pain scale 0/10 ?. 15:07:07 IV patent on arrival in right hand with 0.9% NaCl at [facility]. 15:07:09 Lab results completed and on chart. 15:07:12 Alarms reviewed by R. N. 15:07:12 Right groin area was prepped with chlora-prep and draped in sterile fashion 15:07:13 Sharps counted by scrub and verified by R.N. 15:07:16 Use device set Femoral Dx 15:07:17 Bag Decanter (2002S) opened to sterile field. 15:07:17 ACIST Syringe (08996) opened to sterile field. 15:07:18 DIAGNOSTIC WIRE .035 260cm J wire ([id number]) opened to sterile field. 15:07:18 Medline Cath Pack ([id number]) opened to sterile field. 15:07:19 ACIST Hand Control (15879) opened to sterile field. 15:07:20 DIAGNOSTIC Multipack 5Fr catheter set ([id number]) opened to sterile field. 15:07:20 ACIST Manifold (45089) opened to sterile field. 15:07:21 SHEATH 5FR [place] (UPJ832) opened to sterile field. 15:07:21 Tegaderm 4 x 4 (1626W) opened to sterile field. 15:08:33 Oxygen 2 l/min etCO2 Nasal cannula was administered by Kike Lira RN; used for procedure; 15:08:39 Lidocaine 2% 20ml vial added to field was administered by Min Zaman MD; for local anesthetic; 15:08:45 Heparin Flush Bag (1000units/500ml NS) 2 bags added to field was administered by Min Zaman MD; used for procedure; 15:08:54 0.9% NaCl 100 ml/hr I.V. was administered by Kike Lira RN; Per physician; 15:09:46 Baseline sample Acquired. 15:11:43 Physician paged 15:11:47 Zero performed for pressure channel P1 15:20:58 Final Timeout: patient, procedure, and site verified with staff and physician. All members of the team are in agreement. 15:21:02 Right groin site verified by team. 15::06 Fentanyl 100 mcg I.V. was administered by Kike Lira RN; for sedation; 15::06 Maximum allowable Isovue 300 dose 300ml. Physician notified. (300ml for normal creatinines. For patients with creatinine of 1.7 or higher multiply weight(kg) x 5 divided by creatinine.) 15:21:10 Fire Safety Assessment: A--An alcohol-based skin anteseptic being used preoperatively., C--Open oxygen or nitrous oxide is being used., D--An ESU, laser, or fiber-optic light is being used. 15:21:14 Physical assessment completed. ASA score P 2 - A patient with mild systemic disease as per Min Zaman MD. 15::17 Sedation plan: IV Moderate Sedation Medication:Versed, Fentanyl 15::58 Versed 2 mg I.V. was administered by Kike Lira RN; for sedation; 15:22:50 Procedure started. 15:22:53 Local anesthetic to right femoral artery with Lidocaine 2% by Min Zaman MD.INITIAL ACCESS ONLY 15:23:56 A 5 Fr sheath was inserted into the Right Femoral artery 15:24:32 A MULTIPACK Pigtail 5 Fr catheter was advanced over the wire and used for LV Angiography. 15:24:33 LV gram done using SANCHEZ 15::38 Injector settings: Ml/sec: 10, Volume: 20, 15:24:43 EF : 60 % 15:24:44 Catheter removed. 15:25:00 A MULTIPACK JL 4.0 5Fr catheter was advanced over the wire and used for Left Coronary Angiography. 15::14 Versed 2 mg I.V. was administered by Kike Lira RN; for sedation; ::18 Fentanyl 100 mcg I.V. was administered by Kike Lira RN; for sedation; 15::19 Catheter removed. 15::25 A MULTIPACK 3DRC 5Fr catheter was advanced over the wire and used for Right Coronary Angiography. 15:27:15 Catheter removed. 15::38 Sheath removed intact; hemostasis achieved with Exoseal to the Right Femoral artery. 15:27:40 Procedure ended.(Physican Out) 15:28:31 Fentanyl 25 mcg I.V. was administered by Kike Lira RN; for sedation; 15::41 Fluoroscopy time 01.10 minutes. 15::45 Fluoroscopy dose: 189 mGy 15::45 Flurop Dose total: 189 15:28:48 Contrast amount:Isovue 300 52ml. 15:28:50 Sharps counted by scrub and verified by R.N. 15:28:51 Insertion/operative site no bleeding no hematoma. 15:28:53 Post-op/insertion site Right Femoral artery dressed using a 4 x 4 and Tegaderm. 15:28:57 Post right femoral artery:stable, clean and dry 15::58 Post Procedure Pulses reassessed and unchanged 15:29:04 Post-procedure physical assessment completed. ASA score P 2 - A patient with mild systemic disease as per Min Zaman MD. 15:29:06 Post procedure rhythm: unchanged. 15:29:09 Estimated blood loss: 5 ml 15:29:11 Patient needs reinforcement of post procedure teaching. 15:29:11 Post procedure instruction explained to patient.Patient verbalizes understanding. 15:29:18 Procedure Complication : No complications 15:29:20 See physician's report for complete and final results. 15:29:28 EXOSEAL 5Fr (EX500) opened to sterile field. 15:29:50 Procedure and supply charges have been captured, reviewed, submitted and are correct. 15:31:31 Vital chart was stopped 15:32:47 Report given to PCU. 15:33:25 Patient transfered to PCU with Bed. 15:33:27 Full Disclosure recording stopped 15:33:27 Procedure ended. 15:33:31 End room use (Document Last) 15:43:35 Fentanyl 100 mcg I.V. was administered by Kike Lira RN; for back pain; Holding pressure on rt groin hematoma and pt having pain with pressure to groin, Fentanyl given for groin pain, will continue to monitor. Device Usage Item Name Manufacture Quantity Catalog Hospital Part Current Minimal L ot# / Number Charge Number Stock Stock Serial# Code ACIST Acist 1 21745 186010 150781 857594 20 Campus Connectr (74487) Eco-Vacay Inc Bag Microtek 1 [id number] 53144 493113 5 Decanter Medical Inc. () Medline Medline 1 [id number] 844755 93078 296141 5 Cath Pack ([id number]) DIAGNOSTIC [place] 1 469725 365870 410195 291774 30 WIRE .035 260cm J wire (179117) ACIST Hand Acist 1 96268 086930 822073 612259 5 Control Medical (31658) Systems Inc ACIST Acist 1 66229 684359 661355 706105 5 Manifold Medical (03161) Systems Inc DIAGNOSTIC Cardinal 1 GQ9346 647669 82204 885209 30 Multipack Health 5Fr catheter set (SO0667) Tegaderm 4 3M 1 1626W 454760 377848 371179 5 x 4 (1626W) SHEATH 5FR Terumo 1 DLF544 769936 048673 213044 5 [place] (AKB000) MULTIPACK Cardinal 1 418943 5 Pigtail 5 Health Fr catheter MULTIPACK Cardinal 1 274462 5 JL 4.0 5Fr Health catheter MULTIPACK Cardinal 1 407513 5 3DRC 5Fr Health catheter EXOSEAL 5Fr Cardinal 1 EX500 570449 588500 885866 10 (EX500) Health Signature Audit [place] Stage Time Signature Unsigned Intra-Procedure 12/10/2018 Leonor Elizabeth RT(R) 3:33:44 PM Counts RT(R) 12/10/2018 3:43:29 PM Intra-Procedure 12/10/2018 Aashish Elizabeth 3:59:33 PM RT(R) Signatures Monitor : Leonor Signature : Counts RT Date : Time : [facility] [address] [place] [address]
[2018-12-09] MEDS ORDERED: OMEPRAZOLE20 M1 PO (17:50)
[2018-12-09] MEDS ORDERED: LISINOPRIL5 MG PO (17:51)
[2018-12-09] MEDS ORDERED: ZANAFLEX2 M1 PO (17:51)
[2018-12-09] MEDS ORDERED: CATAPRES0.1 MG PO (17:52)
[2018-12-09 18:20] LABS: BASOPHILS 0.3 % (0-2); EOSINOPHILS 0.7 % (0-7); HEMATOCRIT 34.3 % (36.0-48.0); HEMOGLOBIN 11.1 g/dL (12-16); IMMATURE GRANULOCYTES 0.3 % (0-5); LYMPHOCYTES 28.3 % (15-50); MCH 25.3 pg (26.0-34.0); MCHC 32.4 g/dL (31.0-37.0); MCV 78.1 fL (80.0-100.0); MEAN PLATELET VOLUME 9.9 fL (7.4-10.4); MONOCYTES 4.8 % (2-11); NEUTROPHILS 65.6 % (40-80); PLATELET COUNT 212 10x3/uL (130-400); RBC 4.39 10x6/uL (4.00-5.40); RDW 16.1 % (11.5-14.5); WBC 10.7 10x3/uL (4.8-10.8)
[2018-12-09 18:39] LABS: ALKALINE PHOSPHATASE 178 U/L (46-116); ALT (SGPT) 28 U/L (10-68); BILIRUBIN - TOTAL 0.39 mg/dL (0.2-1.3); CALC OSMOLALITY 280 mosm/kg (275-300); CALCIUM 9.4 mg/dL (8.5-10.1); CHLORIDE - SERUM 103 mmol/L (98-107); CREATININE - SERUM 0.8 mg/dL (0.6-1.3); GLUCOSE 135 mg/dL (74-106); POTASSIUM - SERUM 3.7 mmol/L (3.5-5.1); PROTEIN - SERUM 8.7 g/dL (6.4-8.2); SODIUM 139 mmol/L (136-145); UREA NITROGEN 14 mg/dL (7-18); eGFR NON AFRICAN AMERICAN 80 mL/min (90-120)
[2018-12-09 18:46] LABS: CKMB 0.9 U/L (0.0-3.6); CREATINE KINASE 68 UL (21-215)
[2018-12-09 18:47] LABS: TROPONIN-I < 0.017 ng/mL (0.000-0.060)
--- NOTE | 2018-12-09 20:02 | NUR ---
REPORT RECEIVED TO AVIS MUIR
--- NOTE | 2018-12-09 20:18 | NUR ---
NITRO GIVEN X 2 AT 1845.
--- NOTE | 2018-12-09 20:30 | NUR ---
ARRIVED TO FLOOR VIA WHEELCHAIR, ACCOMPANIED BY HOSPITAL STAFF. ORIENTED TO UNIT AND PLACED ON TELEMETRY. RIGHT HAND INFUSING NS @ 125. CALL LIGHT IN REACH. SEE NURSE ASSESSMENT.
[2018-12-09] MEDS ORDERED: HYDROCODON-ACE1 EAC2 PO (21:06)
[2018-12-10] VITALS: BP 134/79
[2018-12-10 02:08] VITALS: BP 151/86; BMI 42.0
[2018-12-10 04:00] VITALS: BP 118/77
[2018-12-10 06:04] LABS: BASOPHILS 0.3 % (0-2); EOSINOPHILS 1.3 % (0-7); HEMATOCRIT 30.6 % (36.0-48.0); HEMOGLOBIN 9.5 g/dL (12-16); IMMATURE GRANULOCYTES 0.1 % (0-5); LYMPHOCYTES 35.3 % (15-50); MCH 24.2 pg (26.0-34.0); MCV 78.1 fL (80.0-100.0); MEAN PLATELET VOLUME 9.8 fL (7.4-10.4); PLATELET COUNT 174 10x3/uL (130-400); RBC 3.92 10x6/uL (4.00-5.40); RDW 16.4 % (11.5-14.5)
[2018-12-10 06:05] LABS: WBC 6.9 10x3/uL (4.8-10.8)
[2018-12-10 06:39] LABS: CREATINE KINASE 62 UL (21-215); TROPONIN-I < 0.017 ng/mL (0.000-0.060)
[2018-12-10 08:46] VITALS: Ht 167.6 cm; Wt 118.2 kg
[2018-12-10 09:11] VITALS: BP 138/85
[2018-12-10 11:09] LABS: CALC OSMOLALITY 286 mosm/kg (275-300); CALCIUM 8.6 mg/dL (8.5-10.1); CARBON DIOXIDE 21.5 mmol/L (21.0-32.0); CHLORIDE - SERUM 108 mmol/L (98-107); CREATININE - SERUM 0.8 mg/dL (0.6-1.3); GLUCOSE 133 mg/dL (74-106); POTASSIUM - SERUM 4.1 mmol/L (3.5-5.1); SODIUM 143 mmol/L (136-145); UREA NITROGEN 13 mg/dL (7-18); eGFR NON AFRICAN AMERICAN 80 mL/min (90-120)
[2018-12-10 11:42] VITALS: BP 143/79
--- NOTE | 2018-12-10 15:00 | NUR ---
PRE-OPSW GIVEN. TO [place] SEAMER BY BED.
--- NOTE | 2018-12-10 15:59 | NUR ---
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 VS WNL. RIGHT GROIN STABLE WITHOUT BLEEDING OR HEMATOMA NOTED. WILL MONITOR.
--- NOTE | 2018-12-10 17:42 | NUR ---
BED REST UP. GROIN STABLE.
--- NOTE | 2018-12-10 18:07 | NUR ---
IV AND TELEMETRY DCD. DC PLANS GIVEN. UNDERSTANDING VOICED. ESCORTED TO CAR BY W/C.
[2018-12-10 18:30] LABS: ALBUMIN 3.5 g/dL (3.4-5.0); ALKALINE PHOSPHATASE 154 U/L (46-116); ALT (SGPT) 28 U/L (10-68); BILIRUBIN - TOTAL 0.36 mg/dL (0.2-1.3); PROTEIN - SERUM 7.7 g/dL (6.4-8.2)
--- NOTE | 2018-12-13 10:55 | EC ---
PATIENT:REYNALDO FALLON DATE OF SERVICE: 12/09/18 SEX: F MEDICAL RECORD: [id number] DATE OF : 67 LOCATION:D.M2 D.211 AGE OF PATIENT: 53 ADMISSION DATE: 12/09/18 REFERRING PHYSICIAN: INTERPRETING PHYSICIAN: SHERINE ZAMAN MD ECHOCARDIOGRAM REPORT ECHO CHARGES 4 ECHO COMPLETE Date: 12/10/18 CLINICAL DIAGNOSIS: CP ECHOCARDIOGRAPHIC MEASUREMENTS (adult normal given) AC root (d.<3.7cm) 3.1 cm LV Septum d (<1.2 cm> 1.5 cm Valve Excursion 1.6 cm LV Septum (systole) 2.5 cm Left Atria (s.<4.0cm> 3.1 cm LVPW d(<1.2cm) 1.5 cm RV (d.<2.3cm) 3.0 cm LVPW (sytole) 2.3 cm LV diastole(<5.6CM) 5.5 cm MV E-F(>70mm/sec) cm LV systole 2.3 cm LVOT Diameter 1.9 cm MV exc.(>10mm) cm Est.ejection fraction (50-75%) % DOPPLER: LVIT cm/sec A 120 cm/sec E 132 cm/sec LA cm/sec RVSP 35.4 mmHg LVOT 118 cm/sec AOP1/2T m/s Asc. Ao 247 cm/sec RVOT 61.0 cm/sec RA cm/sec PA 110 cm/sec AV Gradient Peak 25.0 mmHg AV Mean 11.0 mmHg AV Area 1.4 cm MV Gradient Peak 7.2 mmHg MV Mean 3.3 mmHg MV Area cm COMMENTS: Telecommunications Repairer: Wilberto SANCHEZOE Flavor Tank Tender: 1 Dr. Zaman TAPE# PACS Pericardial Effusion N DATE OF SERVICE: 12/10/2018 ECHOCARDIOGRAM DATE OF SERVICE: 12/10/2018 FINDINGS: 1. Left ventricular chamber size is within normal limits. Left ventricular systolic function is normal. Overall ejection fraction estimated at 60%. 2. Left atrium, right atrium, and right ventricle chamber sizes are within ECHOCARDIOGRAM REPORT [id number] REYNALDO FALLON normal limits. 3. Valvular structures: Aortic valve demonstrates mild calcific aortic stenosis, valve area calculates 1.4 cm square and has a gradient of 25-mm across the valve. The remaining valvular structures have normal structure and motion. 4. Doppler interrogation reveals no significant valvular insufficiency or stenosis. Pulmonary systolic pressure is preserved at 35 mmHg. 5. No evidence of pericardial effusion or left ventricular thrombus. TRANSINT:[id number] Voice Confirmation ID: [id number] DOCUMENT ID: [id number] SHERINE ZAMAN MD at 1055 CC: [id number] DICTATION DATE: 12/10/18 1219 MONUMENT INSTALLER: 12/10/18 1328 DIS IN 12/10/18 [place] [id number] [place] [id number]
--- NOTE | 2018-12-13 10:55 | OP ---
PATIENT NAME: REYNALDO FALLON MEDICAL RECORD: [id number] :67 LOCATION:D.M2 D.2114 ADMISSION DATE:12/09/18 SURGEON: SHERINE ESCOBAR MD DATE OF OPERATION: 12/10/2018 PROCEDURES: 1. Left heart catheterization. 2. Selective coronary angiography. 3. Left ventriculogram. INDICATION: Angina and coronary artery disease. PROCEDURE PERFORMED: After informed consent was obtained and after detailed description of risks, benefits as well as alternative therapies, the patient elected to proceed with angiogram and heart catheterization. The right femoral area was prepped and draped in normal sterile fashion. Right femoral artery was cannulated via modified Seldinger technique with placement of 5-Samoan sheath. All catheters exchanged through this sheath. FINDINGS: Left ventriculogram was performed in a standard 30-degree SANCHEZ view, reveals good cardiac wall motion throughout all segments. Overall ejection fraction estimated at 60%. SELECTIVE CORONARY ANGIOGRAPHY: Left main, left anterior descending, left circumflex, right coronary artery are smooth-walled vessels with no angiographic evidence of coronary artery disease. OVERALL IMPRESSION: 1. No angiographic evidence of coronary artery disease. 2. Normal left heart pressures. 3. Normal left ventricular systolic function. Chest pain is noncardiac in etiology. No further cardiac workup needs to be ascertained. TRANSINT:[id number] Voice Confirmation ID: [id number] DOCUMENT ID: [id number] SHERINE ESCOBAR MD at 1055 CC: [id number] DICTATION DATE: 12/10/18 1532 ZINC MINER BLASTING: 12/10/18 2156 DIS IN 12/10/18 [place] [id number] [place] [id number]
--- NOTE | 2018-12-13 10:55 | DS ---
PATIENT:REYNALDO FALLON :67 MEDICAL RECORD: [id number] DISCHARGE SUMMARY ADMISSION DATE: 12/09/18 DISCHARGE DATE: 12/10/18 DISCHARGE DIAGNOSES: 1. Chest pain. 2. Normal cardiac catheterization. 3. Hypertension. 4. Aortic stenosis. HOSPITAL COURSE: Ms. Fallon presents with chest discomfort compatible with angina; however, cardiac catheterization was normal. Her blood pressure was well controlled on her lisinopril, clonidine. She did have a murmur. Echocardiogram revealed that this was mild calcific aortic stenosis, was discharged home with no change in her medications. Continue her GERD medications. FOLLOWUP: Follow up with [facility] on an as needed basis. TRANSINT:[id number] Voice Confirmation ID: [id number] DOCUMENT ID: [id number] SHERINE ESCOBAR MD at 1055 CC: [id number] DICTATION DATE: 12/10/18 1542 SALES AND SERVICE REPRESENTATIVE: 12/11/18 0025 DIS IN 12/10/18 [place] [id number] [place] [address]
== END 2018-12-10 18:07 | disposition home or self-care (01) ==
LOC: D.ER 17:33 → D.M2 18:33 → OBSVTIME 18:33 → D.EDHOLD 18:33 → D.M2 19:39
PROVIDERS: Family Medicine; ADMIT Internal Medicine Interventional Cardiology; ATTEND Internal Medicine Interventional Cardiology
DX: R07.9 Chest pain, unspecified (principal); I10 Essential (primary) hypertension; I35.0 Nonrheumatic aortic (valve) stenosis; E11.9 Type 2 diabetes mellitus without complications; K21.9 Gastro-esophageal reflux disease without esophagitis; F32.9 Major depressive disorder, single episode, unspecified

== ENCOUNTER 2019-01-11 17:56 | Emergency (ER) | payer MEDICAID ==
[~2019-01-11] VITALS: Ht 167.6 cm; Wt 119.1 kg
[~2019-01-11 17:56] MED LIST changes: +CATAPRES0.1 MG PO; +HYDROCODON-ACE1 EAC2 PO; +LISINOPRIL5 MG PO; +OMEPRAZOLE20 M1 PO; +ZANAFLEX2 M1 PO
[2019-01-11 18:05] VITALS: Ht 167.6 cm; Wt 119.1 kg
[2019-01-11 18:49] LABS: APPEARANCE CLEAR (CLEAR); COLOR PINK (YELLOW)
[2019-01-11 18:50] LABS: BILIRUBIN NEGATIVE (NEGATIVE); GLUCOSE NEGATIVE (NEGATIVE); KETONE NEGATIVE (NEGATIVE); NITRITE NEGATIVE (NEGATIVE); PROTEIN NEGATIVE (NEGATIVE); UROBILINOGEN NORMAL (NORMAL)
[2019-01-11 18:51] LABS: RED CELLS - URINE >50 /hpf (0-5); WHITE CELLS - URINE 0-5 /hpf (0-5)
[2019-01-11 18:52] LABS: BACTERIA FEW /hpf (NONE SEEN)
[2019-01-11] MEDS ORDERED: ZOFRAN8 MG PO (19:36)
[2019-01-11] MEDS ORDERED: TORADOL10 MG PO (19:36)
[2019-01-11 20:44] VITALS: BP 120/84
== END 2019-01-11 20:45 | disposition home or self-care (01) ==
LOC: D.ER 17:56
PROVIDERS: Family Medicine
DX: R10.9 Unspecified abdominal pain (principal); R31.9 Hematuria, unspecified

== ENCOUNTER 2019-01-26 18:42 | Emergency (ER) | payer MEDICAID ==
[~2019-01-26] VITALS: Ht 167.6 cm; Wt 119.1 kg
[~2019-01-26 18:42] MED LIST changes: +ZOFRAN8 MG PO
[2019-01-26 18:51] VITALS: BP 139/95; Ht 167.6 cm; Wt 119.1 kg
== END 2019-01-26 22:10 | disposition home or self-care (01) ==
LOC: D.ER 18:42
DX: R10.9 Unspecified abdominal pain (principal); R31.9 Hematuria, unspecified; I10 Essential (primary) hypertension; E11.9 Type 2 diabetes mellitus without complications; K21.9 Gastro-esophageal reflux disease without esophagitis

== ENCOUNTER 2019-04-09 16:56 | Emergency (ER) | payer MEDICAID ==
[~2019-04-09] VITALS: Ht 167.6 cm; Wt 115.5 kg
[2019-04-09 16:58] VITALS: Ht 167.6 cm; Wt 115.5 kg
[2019-04-09 18:49] VITALS: BP 132/78
== END 2019-04-09 18:51 | disposition home or self-care (01) ==
LOC: D.ER 16:56
DX: M54.5 Low back pain (principal); W18.30XA Fall on same level, unspecified, initial encounter; Y93.89 Activity, other specified; Y92.89 Other specified places as the place of occurrence of the external cause

== ENCOUNTER 2019-05-05 15:44 | Emergency (ER) | payer MEDICARE ==
[~2019-05-05] VITALS: Ht 167.6 cm; Wt 115.5 kg
[2019-05-05 15:56] VITALS: Ht 167.6 cm; Wt 115.5 kg
[2019-05-05 16:29] LABS: BASOPHILS 0.2 % (0-2); EOSINOPHILS 0.9 % (0-7); HEMATOCRIT 35.2 % (36.0-48.0); HEMOGLOBIN 11.4 g/dL (12-16); IMMATURE GRANULOCYTES 0.3 % (0-5); LYMPHOCYTES 34.5 % (15-50); MCH 25.3 pg (26.0-34.0); MCHC 32.4 g/dL (31.0-37.0); MCV 78.2 fL (80.0-100.0); MEAN PLATELET VOLUME 9.5 fL (7.4-10.4); MONOCYTES 4.2 % (2-11); NEUTROPHILS 59.9 % (40-80); RDW 17.4 % (11.5-14.5); WBC 9.2 10x3/uL (4.8-10.8)
[2019-05-05 16:33] LABS: PLATELET COUNT 226 10x3/uL (130-400)
[2019-05-05 16:37] LABS: APTT 29.4 SECONDS (22.8-39.4); INR 1.08 (0.85-1.17); PROTIME 13.5 SECONDS (11.6-15.0)
[2019-05-05 16:40] LABS: APPEARANCE CLEAR (CLEAR); BILIRUBIN NEGATIVE (NEGATIVE); COLOR YELLOW (YELLOW); GLUCOSE NEGATIVE (NEGATIVE); KETONE NEGATIVE (NEGATIVE); NITRITE NEGATIVE (NEGATIVE); PROTEIN TRACE mg/dL (NEGATIVE); UROBILINOGEN NORMAL (NORMAL)
[2019-05-05 16:43] LABS: RED CELLS - URINE >50 /hpf (0-5); WHITE CELLS - URINE 0-5 /hpf (0-5)
[2019-05-05 16:44] LABS: ALBUMIN 4.2 g/dL (3.4-5.0); ANION GAP 17.7 mmol/L (8-16); BILIRUBIN - TOTAL 0.52 mg/dL (0.2-1.3); CALCIUM 9.5 mg/dL (8.5-10.1); CREATININE - SERUM 0.9 mg/dL (0.6-1.3); POTASSIUM - SERUM 3.7 mmol/L (3.5-5.1); PROTEIN - SERUM 8.6 g/dL (6.4-8.2)
[2019-05-05 16:45] LABS: BACTERIA FEW /hpf (NONE SEEN); EPITHELIAL CELLS 0-5 /hpf (0-5)
[2019-05-05 17:02] LABS: AMYLASE - SERUM 25 U/L (25-115); LIPASE 119 U/L (73-393)
[2019-05-05] MEDS ORDERED: BENTYL10 MG PO (20:51)
[2019-05-05 21:10] VITALS: BP 125/69
== END 2019-05-05 21:11 | disposition home or self-care (01) ==
LOC: D.ER 15:44
PROVIDERS: Family Medicine
DX: R10.9 Unspecified abdominal pain (principal); R31.9 Hematuria, unspecified; K58.9 Irritable bowel syndrome, unspecified

== ENCOUNTER 2019-05-15 12:35 | Emergency (ER) | payer MEDICARE ==
[~2019-05-15] VITALS: Ht 167.6 cm; Wt 115.2 kg
[~2019-05-15 12:35] MED LIST changes: +BENTYL10 MG PO
[2019-05-15 12:38] VITALS: Ht 167.6 cm; Wt 115.2 kg
[2019-05-15 13:17] LABS: BASOPHILS 0.3 % (0-2); EOSINOPHILS 0.8 % (0-7); HEMATOCRIT 33.5 % (36.0-48.0); HEMOGLOBIN 10.8 g/dL (12-16); IMMATURE GRANULOCYTES 0.3 % (0-5); LYMPHOCYTES 30.7 % (15-50); MCH 25.1 pg (26.0-34.0); MCHC 32.2 g/dL (31.0-37.0); MCV 77.7 fL (80.0-100.0); MEAN PLATELET VOLUME 9.8 fL (7.4-10.4); MONOCYTES 4.1 % (2-11); NEUTROPHILS 63.8 % (40-80); PLATELET COUNT 207 10x3/uL (130-400); RBC 4.31 10x6/uL (4.00-5.40); RDW 17.1 % (11.5-14.5); WBC 6.4 10x3/uL (4.8-10.8)
[2019-05-15 13:34] LABS: ALBUMIN 3.8 g/dL (3.4-5.0); ANION GAP 17.7 mmol/L (8-16); BILIRUBIN - TOTAL 0.38 mg/dL (0.2-1.3); CALCIUM 9.4 mg/dL (8.5-10.1); CARBON DIOXIDE 22.1 mmol/L (21.0-32.0); POTASSIUM - SERUM 3.8 mmol/L (3.5-5.1); PROTEIN - SERUM 8.3 g/dL (6.4-8.2)
[2019-05-15 13:40] LABS: APPEARANCE HAZY (CLEAR); COLOR YELLOW (YELLOW); GLUCOSE NEGATIVE (NEGATIVE); NITRITE NEGATIVE (NEGATIVE); PROTEIN NEGATIVE (NEGATIVE)
[2019-05-15 13:41] LABS: BILIRUBIN NEGATIVE (NEGATIVE); EPITHELIAL CELLS 0-5 /hpf (0-5); KETONE NEGATIVE (NEGATIVE); RED CELLS - URINE >50 /hpf (0-5); UROBILINOGEN NORMAL (NORMAL); WHITE CELLS - URINE 0-5 /hpf (0-5)
[2019-05-15] MEDS ORDERED: ANUSOL-HC25 MG RC (17:32)
[2019-05-15 19:17] VITALS: BP 125/77
== END 2019-05-15 18:48 | disposition home or self-care (01) ==
LOC: D.ER 12:35
PROVIDERS: Emergency Medicine
DX: K64.9 Unspecified hemorrhoids (principal)

== ENCOUNTER 2019-05-18 16:09 | Emergency (ER) | payer MEDICARE ==
[~2019-05-18] VITALS: Ht 167.6 cm; Wt 113.6 kg
[~2019-05-18 16:09] MED LIST changes: +ANUSOL-HC25 MG RC
[2019-05-18 16:17] VITALS: Ht 167.6 cm; Wt 113.6 kg
[2019-05-18 16:56] LABS: BASOPHILS 0.1 % (0-2); HEMATOCRIT 33.4 % (36.0-48.0); HEMOGLOBIN 10.9 g/dL (12-16); IMMATURE GRANULOCYTES 0.2 % (0-5); LYMPHOCYTES 26.4 % (15-50); MCH 25.2 pg (26.0-34.0); MCHC 32.6 g/dL (31.0-37.0); MCV 77.1 fL (80.0-100.0); MONOCYTES 5.7 % (2-11); NEUTROPHILS 66.6 % (40-80); PLATELET COUNT 194 10x3/uL (130-400); RBC 4.33 10x6/uL (4.00-5.40); RDW 16.9 % (11.5-14.5); WBC 8.3 10x3/uL (4.8-10.8)
[2019-05-18 17:11] LABS: ALKALINE PHOSPHATASE 139 U/L (46-116); ALT (SGPT) 19 U/L (10-68); BILIRUBIN - TOTAL 0.27 mg/dL (0.2-1.3); CALC OSMOLALITY 278 mosm/kg (275-300); CALCIUM 9.3 mg/dL (8.5-10.1); CARBON DIOXIDE 22.4 mmol/L (21.0-32.0); CHLORIDE - SERUM 106 mmol/L (98-107); CREATININE - SERUM 0.8 mg/dL (0.6-1.3); GLUCOSE 121 mg/dL (74-106); INR 0.99 (0.85-1.17); PROTEIN - SERUM 8.4 g/dL (6.4-8.2); PROTIME 12.6 SECONDS (11.6-15.0); SODIUM 140 mmol/L (136-145); UREA NITROGEN 11 mg/dL (7-18); eGFR NON AFRICAN AMERICAN 80 mL/min (90-120)
[2019-05-18 20:21] VITALS: BP 125/80
== END 2019-05-18 20:21 | disposition home or self-care (01) ==
LOC: D.ER 16:09
PROVIDERS: Emergency Medicine
DX: K62.5 Hemorrhage of anus and rectum (principal); K60.2 Anal fissure, unspecified; E11.9 Type 2 diabetes mellitus without complications

== ENCOUNTER 2019-06-03 10:06 | Emergency (ER) | payer MEDICARE ==
[~2019-06-03] VITALS: Ht 170.2 cm; Wt 113.4 kg
[2019-06-03 10:11] VITALS: Ht 170.2 cm; Wt 113.4 kg
[2019-06-03] MEDS ORDERED: NAPROSYN500 MG PO (10:37)
[2019-06-03 11:36] VITALS: BP 144/96
== END 2019-06-03 11:37 | disposition home or self-care (01) ==
LOC: D.ER 10:06
DX: G43.909 Migraine, unspecified, not intractable, without status migrainosus (principal)

== ENCOUNTER 2019-06-10 23:39 | Emergency (ER) | payer OTHER, MEDICAID ==
[~2019-06-10] VITALS: Ht 170.2 cm; Wt 75.0 kg
[~2019-06-10 23:39] MED LIST changes: +NAPROSYN500 MG PO
[2019-06-10 23:59] VITALS: Ht 170.2 cm; Wt 75.0 kg
[2019-06-11] MEDS ORDERED: BUTALB-APAP-CA1 EACH PO (00:23)
[2019-06-11] MEDS ORDERED: PHENERGAN25 M1 PO (00:23)
[2019-06-11 01:11] VITALS: BP 159/94
== END 2019-06-11 01:12 | disposition home or self-care (01) ==
LOC: D.ER 23:39
DX: G43.909 Migraine, unspecified, not intractable, without status migrainosus (principal); R11.2 Nausea with vomiting, unspecified

== ENCOUNTER → 2019-06-14 13:40 | Outpatient (CLI) | payer OTHER, MEDICAID ==
[2019-06-10 23:59] VITALS: BMI 25.9
[~2019-06-14 13:40] MED LIST changes: +BUTALB-APAP-CA1 EACH PO; +PHENERGAN25 M1 PO
== END | disposition home or self-care (01) ==
LOC: D.CT 13:40
PROVIDERS: ATTEND Family Medicine
DX: G44.52 New daily persistent headache (NDPH) (principal)

== ENCOUNTER 2019-06-29 20:18 | Emergency (ER) | payer OTHER, MEDICAID ==
[~2019-06-29] VITALS: Ht 170.2 cm; Wt 109.1 kg
[2019-06-29 20:37] VITALS: Ht 170.2 cm; Wt 109.1 kg
[2019-06-29] MEDS ORDERED: LISINOPRIL10 MG PO (20:38)
[2019-06-29 20:59] LABS: BASOPHILS 0.3 % (0-2); EOSINOPHILS 0.8 % (0-7); HEMATOCRIT 33.2 % (36.0-48.0); IMMATURE GRANULOCYTES 0.3 % (0-5); LYMPHOCYTES 28.1 % (15-50); MCH 25.5 pg (26.0-34.0); MCHC 33.1 g/dL (31.0-37.0); MEAN PLATELET VOLUME 9.6 fL (7.4-10.4); MONOCYTES 5.1 % (2-11); NEUTROPHILS 65.4 % (40-80); RBC 4.31 10x6/uL (4.00-5.40); RDW 16.5 % (11.5-14.5); WBC 11.2 10x3/uL (4.8-10.8)
[2019-06-29 21:20] LABS: ALBUMIN 4.2 g/dL (3.4-5.0); ANION GAP 15.8 mmol/L (8-16); BILIRUBIN - TOTAL 0.38 mg/dL (0.2-1.3); CALCIUM 9.2 mg/dL (8.5-10.1); CARBON DIOXIDE 22.6 mmol/L (21.0-32.0); CREATININE - SERUM 0.9 mg/dL (0.6-1.3); POTASSIUM - SERUM 3.4 mmol/L (3.5-5.1); PROTEIN - SERUM 8.9 g/dL (6.4-8.2)
[2019-06-29 21:21] LABS: APPEARANCE HAZY (CLEAR); BILIRUBIN NEGATIVE (NEGATIVE); COLOR DK YELLOW (YELLOW); GLUCOSE NEGATIVE (NEGATIVE); KETONE NEGATIVE (NEGATIVE); NITRITE NEGATIVE (NEGATIVE); PROTEIN NEGATIVE (NEGATIVE); UROBILINOGEN NORMAL (NORMAL)
[2019-06-29 21:22] LABS: EPITHELIAL CELLS OCC /hpf (0-5); RED CELLS - URINE 25-50 /hpf (0-5); WHITE CELLS - URINE 0-5 /hpf (NEGATIVE)
[2019-06-29 21:36] LABS: PLATELET COUNT 257 10x3/uL (130-400)
[2019-06-30 01:38] VITALS: BP 129/81
== END 2019-06-30 01:39 | disposition home or self-care (01) ==
LOC: D.ER 20:18
PROVIDERS: Emergency Medicine
DX: R10.9 Unspecified abdominal pain (principal)

== ENCOUNTER 2019-07-08 10:46 | Observation (INO) | payer OTHER, MEDICAID ==
[~2019-07-08] VITALS: Ht 170.2 cm; Wt 111.4 kg
[~2019-07-08 10:46] MED LIST changes: +LISINOPRIL10 MG PO
[2019-07-08 11:13] VITALS: BP 141/82
[2019-07-08 11:15] LABS: BASOPHILS 0.4 % (0-2); EOSINOPHILS 0.7 % (0-7); HEMATOCRIT 32.8 % (36.0-48.0); HEMOGLOBIN 10.4 g/dL (12-16); IMMATURE GRANULOCYTES 0.2 % (0-5); MCH 25.2 pg (26.0-34.0); MCHC 31.7 g/dL (31.0-37.0); MCV 79.4 fL (80.0-100.0); MEAN PLATELET VOLUME 9.7 fL (7.4-10.4); MONOCYTES 6.5 % (2-11); NEUTROPHILS 57.2 % (40-80); RBC 4.13 10x6/uL (4.00-5.40); RDW 16.4 % (11.5-14.5); WBC 5.4 10x3/uL (4.8-10.8)
[2019-07-08 11:16] LABS: PLATELET COUNT 201 10x3/uL (130-400)
--- NOTE | 2019-07-08 11:20 | NUR ---
REPORTS NO RELIEF FROM CP; NO NEEDS NOTED; UPDATED ON PLAN OF CARE AND DELAYS IN CARE; WILL CONTINUE TO MONITOR;
[2019-07-08 11:24] LABS: APTT 30.2 SECONDS (22.8-39.4); INR 1.02 (0.85-1.17); PROTIME 12.9 SECONDS (11.6-15.0)
[2019-07-08 11:26] LABS: ALBUMIN 3.7 g/dL (3.4-5.0); ALKALINE PHOSPHATASE 144 U/L (46-116); ALT (SGPT) 14 U/L (10-68); BILIRUBIN - TOTAL 0.28 mg/dL (0.2-1.3); CALC OSMOLALITY 280 mosm/kg (275-300); CALCIUM 9.1 mg/dL (8.5-10.1); CARBON DIOXIDE 23.1 mmol/L (21.0-32.0); CHLORIDE - SERUM 106 mmol/L (98-107); CREATININE - SERUM 0.8 mg/dL (0.6-1.3); GLUCOSE 124 mg/dL (74-106); POTASSIUM - SERUM 4.1 mmol/L (3.5-5.1); SODIUM 141 mmol/L (136-145); UREA NITROGEN 9 mg/dL (7-18); eGFR NON AFRICAN AMERICAN 80 mL/min (90-120)
[2019-07-08 11:37] LABS: CREATINE KINASE 56 UL (21-215); MAGNESIUM - SERUM 1.9 mg/dL (1.8-2.4)
[2019-07-08 11:39] LABS: TROPONIN-I < 0.017 ng/mL (0.000-0.060)
[2019-07-08 11:45] VITALS: BP 141/94
--- NOTE | 2019-07-08 14:25 | NUR ---
PATIENT ROOM 2122 STILL DIRTY, CALLED AND SPOKE TO KIARAE WAS TOLD SOMEONE IS COMING TO CLEAN THE ROOM. PATIENT UPDATED ON PLAN OF CARE. DR. MCKEON AT PATIENT BEDSIDE.
--- NOTE | 2019-07-08 15:14 | NUR ---
ROOM READY; PATIENT TRANSPORTED TO ROOM VIA WHEELCHAIR.
[2019-07-08] MEDS ORDERED: PROTONIX40 MG PO (15:31)
--- NOTE | 2019-07-08 15:39 | NUR ---
RECEIVED PT FROM ER VIA WHEELCHAIR WITH HOSPITAL STAFF. PT IS AAO AND UP AD FELTON. RR EVEN AND UNLABORED ON RA. TELEMETRY PLACED ON PT AND RUNNING SINUS RHYTHM AT 73. QUICKSTART, MED REQ, AND HISTORY COMPLETE. PT NO S/S OF DISTRESS NOTED AND NO COMPLAINTS OF CHEST PAIN. PT DENIES ANY NEEDS AT THIS TIME. WILL CTM.
[2019-07-08 17:16] VITALS: BP 129/73; Ht 170.2 cm; Wt 111.4 kg
--- NOTE | 2019-07-08 19:31 | NUR ---
RECEIVED REPORT, WILL ASSUME CARE OF PT, DENIES ANY NEEDS, BED IS LOW,SRX2, CALL LIGHT IN REACH, WILL CONTINUE PLAN OF CARE
[2019-07-08 20:30] VITALS: BP 121/84
[2019-07-09] VITALS (7 sets, daily range): BP systolic 122–154; BP diastolic 78–95
--- NOTE | 2019-07-09 07:17 | NUR ---
PT AWAKE AND ORIENTED, LYING DOWN WITH A RAG ON HER HEAD. STATES NO PAIN AT THIS TIME. CL IN REACH, SRX2. NO COMPLAINTS/CONCERNS AT THIS TIME. CL IN REACH, SRX2.
--- NOTE | 2019-07-09 15:53 | NUR ---
I have reviewed this patient and I concur with the Shift Assessment completed by the Licensed Practical Nurse today this shift.
--- NOTE | 2019-07-09 16:01 | MORECARE ---
CASE MANAGEMENT DISCHARGE SUMMARY PATIENT: REYNALDO WATERS UNIT: [id number] ADM DATE: 07/08/19 AGE: 53 : 67 SEX: F ROOM/BED: D.2123 AUTHOR: SHERRI QUINTANILLA PHYSICIAN: REFERRING PHYSICIAN: LUIS MCKEON MD DATE OF SERVICE: 07/09/19 Discharge Plan Patient Name: REYNALDO WATERS [facility] [facility] 1965 Planned Disposition: Anticipated Discharge Date: Discharge Date: Expected LOS: Initial Reviewer: [email or web address] Initial Review Date: 07/08/2019 Generated: 07/09/19 5:01 pm External Providers External Provider: OTHER-OTHER Next Contact Date: Service Request Date: Service Type: Resolution: Reviewer: Comments: Coverage Notice Reviewer: [email or web address] Peyman Booker Notice Issued Date-Time: 07/08/2019 13:30 Notice Type: Medicare Outpatient Observation Notice Notice Delivered To: Patient Relationship to Patient: Self Sales Architect Name: Reynaldo Waters Delivery Method: HAND - Hand Delivered Juanis Days: Prior Verbal Notification: Recipient Understood Notice: Yes Recipient Signature: Yes Med Rec Note Co-signed by Attending: Coverage Notice Comment: RIVERO delivered/signed per patient. Patient Name: REYNALDO WATERS Page [phone] at 1601 All edits/amendments must be made on the electronic document DICTATION DATE: 07/09/19 160 BELT AND LINK ASSEMBLY SUPERVISOR: SUMEET 07/09/19 160 RPT#: [id number] DC DATE: STATUS: ADM IN [facility] [address] [place] [address] END OF REPORT
--- NOTE | 2019-07-09 19:15 | NUR ---
RECEIVED REPORT, WILL ASSUME CARE OF PT, DENIES ANY NEEDS AT THIS TIME,BED IS LOW, SRX2, CALL LIGHT IN REACH, WILL CONTINUE PLAN OF CARE
--- NOTE | 2019-07-09 20:23 | NUR ---
NEW ORDERS FOR CATH RECEIVED, CONSENT ARE SIGNED AND PLACED IN CHART
[2019-07-10 03:50] VITALS: BP 129/87
--- NOTE | 2019-07-10 04:55 | NUR ---
I have reviewed this patient and I concur with the Shift Assessment completed by the Licensed Practical Nurse today this shift.
[2019-07-10 08:00] VITALS: BP 143/92
[2019-07-10] MEDS ORDERED: LISINOPRIL10 MG PO (11:26)
[2019-07-10] MEDS ORDERED: MOBIC7.5 MG PO (11:27)
--- NOTE | 2019-07-10 12:13 | EC ---
PATIENT:REYNALDO FALLON DATE OF SERVICE: 07/08/19 SEX: F MEDICAL RECORD: [id number] DATE OF : [birth year] LOCATION:D.M2 D.212 AGE OF PATIENT: 53 ADMISSION DATE: 07/08/19 REFERRING PHYSICIAN: INTERPRETING PHYSICIAN: ANABELLE FLORES MD ECHOCARDIOGRAM REPORT ECHO CHARGES 4 ECHO COMPLETE Date: 07/09/19 CLINICAL DIAGNOSIS: CP ECHOCARDIOGRAPHIC MEASUREMENTS (adult normal given) AC root (d.<3.7cm) 3.2 cm LV Septum d (<1.2 cm> 1.4 cm Valve Excursion 1.5 cm LV Septum (systole) 2.1 cm Left Atria (s.<4.0cm> 4.4 cm LVPW d(<1.2cm) 1.3 cm RV (d.<2.3cm) 2.4 cm LVPW (sytole) 1.6 cm LV diastole(<5.6CM) 5.4 cm MV E-F(>70mm/sec) cm LV systole 3.9 cm LVOT Diameter 1.9 cm MV exc.(>10mm) cm Est.ejection fraction (50-75%) % DOPPLER: LVIT cm/sec A 108 cm/sec E 92.0 cm/sec LA cm/sec RVSP 26.1 mmHg LVOT 129 cm/sec AOP1/2T m/s Asc. Ao 227 cm/sec RVOT 65.0 cm/sec RA cm/sec PA 103 cm/sec AV Gradient Peak 21.0 mmHg AV Mean 12.0 mmHg AV Area 1.3 cm MV Gradient Peak 5.9 mmHg MV Mean 2.4 mmHg MV Area cm COMMENTS: Blind Eyeletter: 1 YURIY SANCHEZOE Electrolytic Etcher: 3 Dr. Kendall TAPE# PACS Pericardial Effusion N DATE OF SERVICE: Adequate 2D, color flow, spectral Doppler, and M-mode. LVH is present. LV internal dimensions are normal. Wall motion is normal. EF is greater than or equal to 55%. Aortic valve is tricuspid. There is no evidence of stenosis by Doppler interrogation. Left atrium is mildly dilated at 4.4 cm. Mitral valve shows no prolapse. Trivial MR only. Right-sided chambers grossly normal. Trivial TR only. TRANSINT:[id number] Voice Confirmation ID: [id number] DOCUMENT ID: [id number] ECHOCARDIOGRAM REPORT [id number] REYNALDO FALLON,ANABELLE Conner MD at 1213 CC: [id number] DICTATION DATE: 07/10/19 0850 PANEL MACHINE SETTER: 07/10/19 1042 ADM IN [facility] [address] [place] [id number]
--- NOTE | 2019-07-10 13:46 | NUR ---
PT ESCORTED OUT VIA HWEELCHAIR TO POV WITH
--- NOTE | 2019-07-11 09:36 | MORECARE ---
CASE MANAGEMENT DISCHARGE SUMMARY PATIENT: REYNALDO WATERS UNIT: [id number] ADM DATE: 07/08/19 AGE: 53 : 67 SEX: F ROOM/BED: D.2123 AUTHOR: SHERRI QUINTANILLA PHYSICIAN: REFERRING PHYSICIAN: LUIS MCKEON MD DATE OF SERVICE: 07/11/19 Discharge Plan Patient Name: REYNALDO WATERS [facility] [facility] 1965 Planned Disposition: Home Anticipated Discharge Date: 07/10/19 Discharge Date: 07/10/2019 Expected LOS: 2 Initial Reviewer: [email or web address] Initial Review Date: 07/08/2019 Generated: 07/11/19 10:36 am Coverage Notice Reviewer: [email or web address] Peyman Booker Notice Issued Date-Time: 07/08/2019 13:30 Notice Type: Medicare Outpatient Observation Notice Notice Delivered To: Patient Relationship to Patient: Self Human Resources Support Specialist Name: Reynaldo Waters Delivery Method: HAND - Hand Delivered Juanis Days: Prior Verbal Notification: Recipient Understood Notice: Yes Recipient Signature: Yes Med Rec Note Co-signed by Attending: Coverage Notice Comment: RIVERO delivered/signed per patient. Last DP export: 07/09/19 3:01 p Patient Name: REYNALDO WATERS Page [phone] at 0936 All edits/amendments must be made on the electronic document DICTATION DATE: 07/11/1936 PLAYER DEVELOPMENT EXECUTIVE: SUMEET 07/11/1935 RPT#: [id number] DC DATE:07/10/19 STATUS: DIS IN [facility] [address] [place] [address] END OF REPORT
== END 2019-07-10 13:47 | disposition home or self-care (01) ==
LOC: D.ER 10:46 → D.M2 13:10 → OBSVTIME 13:30 → D.M2 07-10 13:47
PROVIDERS: Family Medicine; ADMIT Family Medicine; ATTEND Family Medicine
DX: R07.9 Chest pain, unspecified (principal); E11.9 Type 2 diabetes mellitus without complications; M54.9 Dorsalgia, unspecified; F32.9 Major depressive disorder, single episode, unspecified; I10 Essential (primary) hypertension; K21.9 Gastro-esophageal reflux disease without esophagitis

== ENCOUNTER 2019-07-31 12:22 | Observation (INO) | payer OTHER, MEDICAID ==
[~2019-07-31] VITALS: Ht 170.2 cm; Wt 111.4 kg
[~2019-07-31 12:22] MED LIST changes: +MOBIC7.5 MG PO
[2019-07-31 13:24] LABS: BASOPHILS 0.3 % (0-2); HEMATOCRIT 34.2 % (36.0-48.0); HEMOGLOBIN 10.7 g/dL (12-16); IMMATURE GRANULOCYTES 0.1 % (0-5); LYMPHOCYTES 32.7 % (15-50); MCH 25.5 pg (26.0-34.0); MCHC 31.3 g/dL (31.0-37.0); MCV 81.4 fL (80.0-100.0); MEAN PLATELET VOLUME 9.3 fL (7.4-10.4); MONOCYTES 7.1 % (2-11); NEUTROPHILS 58.8 % (40-80); PLATELET COUNT 240 10x3/uL (130-400); RDW 16.8 % (11.5-14.5); WBC 7.1 10x3/uL (4.8-10.8)
[2019-07-31 13:30] LABS: APPEARANCE CLOUDY (CLEAR); BILIRUBIN NEGATIVE (NEGATIVE); COLOR YELLOW (YELLOW); EPITHELIAL CELLS 0-5 /hpf (0-5); GLUCOSE NEGATIVE (NEGATIVE); KETONE NEGATIVE (NEGATIVE); NITRITE NEGATIVE (NEGATIVE); PROTEIN NEGATIVE (NEGATIVE); RED CELLS - URINE >50 /hpf (0-5); UROBILINOGEN NORMAL (NORMAL); WHITE CELLS - URINE 0-5 /hpf (NEGATIVE)
[2019-07-31 13:33] LABS: CALC OSMOLALITY 288 mosm/kg (275-300); CALCIUM 9.2 mg/dL (8.5-10.1); CARBON DIOXIDE 25.6 mmol/L (21.0-32.0); CHLORIDE - SERUM 108 mmol/L (98-107); CREATININE - SERUM 0.8 mg/dL (0.6-1.3); GLUCOSE 162 mg/dL (74-106); POTASSIUM - SERUM 3.7 mmol/L (3.5-5.1); SODIUM 144 mmol/L (136-145); UREA NITROGEN 7 mg/dL (7-18); eGFR NON AFRICAN AMERICAN 79 mL/min (90-120)
[2019-07-31 13:47] LABS: ALBUMIN 3.9 g/dL (3.4-5.0); ALKALINE PHOSPHATASE 143 U/L (46-116); ALT (SGPT) 21 U/L (10-68); LIPASE 213 U/L (73-393); PROTEIN - SERUM 8.3 g/dL (6.4-8.2)
[2019-07-31 13:55] LABS: TROPONIN-I < 0.017 ng/mL (0.000-0.060)
[2019-07-31 15:04] LABS: UDS - AMPHET NEGATIVE QUAL (NEGATIVE); UDS - BARB NEGATIVE QUAL (NEGATIVE); UDS - BENZO NEGATIVE QUAL (NEGATIVE); UDS - COCAINE NEGATIVE QUAL (NEGATIVE); UDS - OPIATE NEGATIVE QUAL (NEGATIVE); UDS - PCP NEGATIVE QUAL (NEGATIVE); UDS - THC NEGATIVE QUAL (NEGATIVE)
[2019-07-31 16:24] VITALS: BP 114/80
--- NOTE | 2019-07-31 18:28 | NUR ---
PT RECIEVED FROM ER. NO SIGNS OF DISTRESS. IV TO LEFT HAND WRIST AREA PATENT NO REDNESS OR TENDERNESS. COMPLAINS OF PAIN. MEDICATIONS GIVEN. DENIES ANY FURTHER NEED AT THIS TIME. CALL LIGHT IN REACH. BED LOW POSITION. NO FAMILY AT BEDSIDE AT THIS TIME.
--- NOTE | 2019-07-31 19:19 | NUR ---
PATIENT RESTING IN BED WITH C/O 9/10 PAIN IN HER PELVIC AREA. REVIEWED PAIN MEDICATION WITH PATIENT AND SHE VERBALIZED UNDERSTANDING. WILL ADMINISTER MEDS PER ORDERS
[2019-07-31 20:00] VITALS: BP 155/97
[2019-08-01] VITALS: BP 144/78
[2019-08-01 02:34] VITALS: Ht 170.2 cm; Wt 111.4 kg
[2019-08-01 04:00] VITALS: BP 160/88
--- NOTE | 2019-08-01 07:25 | NUR ---
PT RESTING IN BED. NO SIGNS OF DISTRESS. IV TO RIGHT HAND PATENT NO REDNESS OR TENDERNESS. ON TELEMETRY 72 SR. COMPLAINS OF PAIN. MEDICATION ALREADY GIVEN. DENIES ANY FURTHER NEED AT THIS TIME. CALL LIGHT IN REACH,. BED LOW POSITION. NO FAMILY AT BEDSIDE AT THIS ITME.
[2019-08-01 08:48] VITALS: BP 137/79
[2019-08-01 09:06] LABS: BASOPHILS 0.4 % (0-2); EOSINOPHILS 1.3 % (0-7); HEMATOCRIT 30.5 % (36.0-48.0); HEMOGLOBIN 9.4 g/dL (12-16); IMMATURE GRANULOCYTES 0.2 % (0-5); LYMPHOCYTES 38.6 % (15-50); MCH 25.3 pg (26.0-34.0); MCHC 30.8 g/dL (31.0-37.0); MCV 82.2 fL (80.0-100.0); MEAN PLATELET VOLUME 9.9 fL (7.4-10.4); NEUTROPHILS 53.5 % (40-80); RBC 3.71 10x6/uL (4.00-5.40); RDW 16.6 % (11.5-14.5)
[2019-08-01 09:08] LABS: PLATELET COUNT 178 10x3/uL (130-400); WBC 4.7 10x3/uL (4.8-10.8)
[2019-08-01 09:14] LABS: ALBUMIN 3.4 g/dL (3.4-5.0); ALKALINE PHOSPHATASE 120 U/L (46-116); ALT (SGPT) 23 U/L (10-68); CALC OSMOLALITY 283 mosm/kg (275-300); CALCIUM 8.7 mg/dL (8.5-10.1); CARBON DIOXIDE 23.9 mmol/L (21.0-32.0); CHLORIDE - SERUM 108 mmol/L (98-107); CHOL - HDL RATIO 5.1 ratio (2.3-4.1); CHOLESTEROL, TOTAL 214 mg/dL (0-200); CREATININE - SERUM 0.7 mg/dL (0.6-1.3); GLUCOSE 126 mg/dL (74-106); HDL CHOLESTEROL 42 mg/dL (32-96); LDL CHOLESTEROL 143 mg/dL (0-100); LDL-HDL RATIO 3.4 ratio (1.5-3.5); POTASSIUM - SERUM 3.6 mmol/L (3.5-5.1); PROTEIN - SERUM 7.2 g/dL (6.4-8.2); SODIUM 142 mmol/L (136-145); TRIGLYCERIDE 148 mg/dL (30-200); UREA NITROGEN 9 mg/dL (7-18); eGFR NON AFRICAN AMERICAN > 90 mL/min (90-120)
[2019-08-01 13:30] VITALS: BP 140/78
--- NOTE | 2019-08-01 13:58 | MORECARE ---
CASE MANAGEMENT DISCHARGE SUMMARY PATIENT: REYNALDO FALLON. UNIT: [id number] ADM DATE: 07/31/19 AGE: 54 : 67 SEX: F ROOM/BED: D.2228 AUTHOR: SHERRI QUINTANILLA PHYSICIAN: REFERRING PHYSICIAN: LUIS MCKEON MD DATE OF SERVICE: 08/01/19 Discharge Plan Patient Name: REYNALDO FALLON [facility] [facility] 1965 Planned Disposition: Home Anticipated Discharge Date: Discharge Date: Expected LOS: Initial Reviewer: [email or web address] Initial Review Date: 08/01/2019 Generated: 08/01/19 2:57 pm External Providers External Provider: OTHER-OTHER Next Contact Date: Service Request Date: Service Type: Resolution: Reviewer: Comments: Coverage Notice Reviewer: [id number] Peyman Townsend Notice Issued Date-Time: 08/01/2019 13:46 Notice Type: Medicare Outpatient Observation Notice Notice Delivered To: Patient Relationship to Patient: Self Artist Suspect Name: Delivery Method: HAND - Hand Delivered Juanis Days: Prior Verbal Notification: Recipient Understood Notice: Yes Recipient Signature: Yes Med Rec Note Co-signed by Attending: Coverage Notice Comment: MAT explained, signed, given, copy placed in MR Patient Name: REYNALDO FALLON Page [phone] at 1358 All edits/amendments must be made on the electronic document DICTATION DATE: 08/01/19 1357 LAY OUT INSPECTOR: SUMEET 08/01/19 1357 RPT#: [id number] DC DATE: STATUS: ADM IN [facility] [address] [place] [address] END OF REPORT
--- NOTE | 2019-08-01 14:07 | MORECARE ---
CASE MANAGEMENT DISCHARGE SUMMARY PATIENT: REYNALDO FALLON. UNIT: [id number] ADM DATE: 07/31/19 AGE: 54 : 67 SEX: F ROOM/BED: D.2228 AUTHOR: DWIGHT,DOC PHYSICIAN: REFERRING PHYSICIAN: LUIS DENNIS MD DATE OF SERVICE: 08/01/19 Discharge Plan Patient Name: REYNALDO FALLON Facility: [facility]:[place] : 1965 Planned Disposition: Home Anticipated Discharge Date: Discharge Date: Expected LOS: Initial Reviewer: [email or web address] Initial Review Date: 08/01/2019 Generated: 08/01/19 3:06 pm Comments DCP- Discharge Planning Updated by [email or web address]: Faviola Townsend on 08/01/19 1:[address] Patient Name: REYNALDO FALLON Admission Status: ER Accout number: [id number] Admission Date: 07-31-2019 : 1965 Admission Diagnosis: Attending: LUIS DENNIS Current LOS: 1 Anticipated DC Date: Planned Disposition: Home Primary Insurance: [employer] Discharge Planning Comments: CM met with patient to complete initial dc planning assessment. CM educated patient on the CM role and verbal consent given by patient to complete assessment. Patient lives at home with her son and . At discharge she plans to return and feels this is a safe discharge. CM discussed the availability of home health and DME, she denies discharge needs at this time. CM will continue to follow and assist with discharge planning/needs. Hoop Maker: Faviola Townsend DCPIA - Discharge Planning Initial Assessment Updated by [email or web address]: Faviola Townsend on 08/01/19 1:58 pm * Is the patient Alert and Oriented? Yes * How many steps to enter\exit or inside your home? Ramp/0 * PCP Dr. Dennis * [facility] * Preadmission Environment Home with Family * ADLs Independent * Equipment None * List name and contact numbers for known caregivers / representatives who currently or will assist patient after discharge: Leonardo - spouse Ariel - son - [phone] * Verbal permission to speak to the caregivers and representatives has been obtained from the patient. Yes * Community resources currently utilized None * Additional services required to return to the preadmission environment? No * Can the patient safely return to the preadmission environment? Yes * Has this patient been hospitalized within the prior 30 days at any hospital? No Coverage Notice Reviewer: [id number] Peyman Townsend Notice Issued Date-Time: 08/01/2019 13:46 Notice Type: Medicare Outpatient Observation Notice Notice Delivered To: Patient Relationship to Patient: Self Impact Hammer Operator Name: Delivery Method: HAND - Hand Delivered Juanis Days: Prior Verbal Notification: Recipient Understood Notice: Yes Recipient Signature: Yes Med Rec Note Co-signed by Attending: Coverage Notice Comment: MAT explained, signed, given, copy placed in MR Last DP export: 08/01/19 12:58 Patient Name: REYNALDO FALLON Page [phone] at 1407 All edits/amendments must be made on the electronic document DICTATION DATE: 08/01/191405 TRAVEL FREIGHT AND PASSENGER AGENT: SUMEET 08/01/191405 RPT#: [id number] DC DATE: STATUS: ADM IN [facility] [address] [place] [address] END OF REPORT
[2019-08-01 16:51] VITALS: BP 142/80
--- NOTE | 2019-08-01 18:19 | NUR ---
ALERT AND ORIENTED, RESTING IN BED. C/O PAIN 04/13, GAVE NORCO FOR PAIN. NO S/S OF ACUTE DISTRESS NOTED. DENIES ANY NEEDS AT THIS TIME. CALL LIGHT IN REACH. WILL CONTINUE TO MONITOR.
--- NOTE | 2019-08-01 19:15 | NUR ---
PATIENT RESTING IN BED WITH NO S/S OF DISTRESS AND DENIES NEEDS AT THIS TIME. PATIENT'S PAIN WELL CONTROLLED AT THIS TIME. BED IN LOWEST POSITION AND CALL LIGHT WITHIN REACH. ENCOURAGED THE PATIENT TO CALL IF SHE HAS NEEDS. WILL CONTINUE TO MONITOR.
[2019-08-01 20:00] VITALS: BP 147/81
[2019-08-02] VITALS: BP 125/71
--- NOTE | 2019-08-02 07:10 | NUR ---
ALERT AND ORIENTED, RESTING IN BED. C/O PAIN, GAVE NORCO FOR PAIN. NO S/S OF ACUTE DISTRESS NOTED. IV TO LEFT HAND, NS INFUSING @ 125ML/HR. SITE PATENT WITHOUT REDNESS OR SWELLING. DENIES ANY NEEDS AT THIS TIME. CALL LIGHT IN REACH. WILL CONTINUE TO MONITOR.
[2019-08-02 08:22] VITALS: BP 148/80
[2019-08-02 12:37] VITALS: BP 134/81
[2019-08-02] MEDS ORDERED: LEVAQUIN750 MG PO (15:20)
--- NOTE | 2019-08-02 16:06 | NUR ---
DISCHARGED PATIENT HOME VIA WHEELCHAIR WITH , ACCOMPANIED BY STAFF. DISCONTINUED IV, CATHETER TIP INTACT. WENT OVER DISCHARGE INSTRUCTIONS WITH PATIENT, VERBALIZED UNDERSTANDING. DENIES ANYTHING FURTHER AT THIS TIME.
--- NOTE | 2019-08-04 07:09 | MORECARE ---
CASE MANAGEMENT DISCHARGE SUMMARY PATIENT: REYNALDO FALLON. UNIT: [id number] ADM DATE: 07/31/19 AGE: 54 : 67 SEX: F ROOM/BED: D.2228 AUTHOR: DWIGHT,DOC PHYSICIAN: REFERRING PHYSICIAN: LUIS DENNIS MD DATE OF SERVICE: 08/04/19 Discharge Plan Patient Name: REYNALDO FALLON Facility: [facility]:[place] : 1965 Planned Disposition: Home Anticipated Discharge Date: Discharge Date: 08/02/2019 Expected LOS: 0 Initial Reviewer: [email or web address] Initial Review Date: 08/01/2019 Generated: 08/04/19 8:09 am DCP- Discharge Planning Updated by [email or web address]: Faviola Townsend on 08/01/19 1:[address] Patient Name: REYNALDO FALLON Admission Status: ER Accout number: [id number] Admission Date: 07-31-2019 : 1965 Admission Diagnosis: Attending: LUIS DENNIS Current LOS: 1 Anticipated DC Date: Planned Disposition: Home Primary Insurance: [employer] Discharge Planning Comments: CM met with patient to complete initial dc planning assessment. CM educated patient on the CM role and verbal consent given by patient to complete assessment. Patient lives at home with her son and . At discharge she plans to return and feels this is a safe discharge. CM discussed the availability of home health and DME, she denies discharge needs at this time. CM will continue to follow and assist with discharge planning/needs. Director Of Recruitment And Admissions: Faviola Townsend DCPIA - Discharge Planning Initial Assessment Updated by [email or web address]: Faviola Townsend on 08/01/19 1:58 pm * Is the patient Alert and Oriented? Yes * How many steps to enter\exit or inside your home? Ramp/0 * PCP Dr. Dennis * [facility] * Preadmission Environment Home with Family * ADLs Independent * Equipment None * List name and contact numbers for known caregivers / representatives who currently or will assist patient after discharge: Leonardo - spouse Ariel - son - [phone] * Verbal permission to speak to the caregivers and representatives has been obtained from the patient. Yes * Community resources currently utilized None * Additional services required to return to the preadmission environment? No * Can the patient safely return to the preadmission environment? Yes * Has this patient been hospitalized within the prior 30 days at any hospital? No Coverage Notice Reviewer: [id number] Peyman Townsend Notice Issued Date-Time: 08/01/2019 13:46 Notice Type: Medicare Outpatient Observation Notice Notice Delivered To: Patient Relationship to Patient: Self Steam Hand Name: Delivery Method: HAND - Hand Delivered Juanis Days: Prior Verbal Notification: Recipient Understood Notice: Yes Recipient Signature: Yes Med Rec Note Co-signed by Attending: Coverage Notice Comment: MAT explained, signed, given, copy placed in MR Last DP export: 08/01/19 1:07 Patient Name: REYNALDO FALLON Page [phone] at 0709 All edits/amendments must be made on the electronic document DICTATION DATE: 08/04/19708 HOME THEATER EXPERIENCE EXPERT: SUMEET 08/04/19708 RPT#: [id number] DC DATE:08/02/19 STATUS: DIS IN [facility] [address] [place] [address] END OF REPORT
== END 2019-08-02 16:41 | disposition home or self-care (01) ==
LOC: D.ER 12:22 → OBSVTIME 17:11 → D.MS 17:11
PROVIDERS: Family Medicine; ADMIT Family Medicine; ATTEND Family Medicine
DX: N20.0 Calculus of kidney (principal); I10 Essential (primary) hypertension; E11.9 Type 2 diabetes mellitus without complications; K21.9 Gastro-esophageal reflux disease without esophagitis; E78.5 Hyperlipidemia, unspecified; F32.9 Major depressive disorder, single episode, unspecified; E66.01 Morbid (severe) obesity due to excess calories

== ENCOUNTER → 2019-08-17 20:53 | Outpatient (CLI) | payer OTHER, MEDICAID ==
[2019-08-01 02:34] VITALS: BMI 38.4
[~2019-08-17 20:53] MED LIST changes: +LEVAQUIN750 MG PO; +MYRBETRIQ50 MG PO
== END | disposition home or self-care (01) ==
LOC: D.LABREF 20:53
PROVIDERS: ATTEND Urology
DX: R31.9 Hematuria, unspecified (principal)

== ENCOUNTER 2019-08-21 10:46 | Emergency (ER) | payer OTHER, MEDICAID ==
[~2019-08-21] VITALS: Ht 170.2 cm; Wt 109.5 kg
[~2019-08-21 10:46] MED LIST changes: -MYRBETRIQ50 MG PO
[2019-08-21 10:49] VITALS: Ht 170.2 cm; Wt 109.5 kg
[2019-08-21] MEDS ORDERED: MYRBETRIQ50 MG PO (10:51)
[2019-08-21 11:21] LABS: APPEARANCE CLEAR (CLEAR); COLOR YELLOW (YELLOW); NITRITE NEGATIVE (NEGATIVE); PROTEIN NEGATIVE (NEGATIVE)
[2019-08-21 11:22] LABS: BILIRUBIN NEGATIVE (NEGATIVE); GLUCOSE NEGATIVE (NEGATIVE); KETONE NEGATIVE (NEGATIVE); UROBILINOGEN NORMAL (NORMAL)
[2019-08-21 11:23] LABS: RED CELLS - URINE >50 /hpf (0-5); WHITE CELLS - URINE RARE /hpf (NEGATIVE)
[2019-08-21 11:28] LABS: BASOPHILS 0.2 % (0-2); HEMATOCRIT 31.5 % (36.0-48.0); HEMOGLOBIN 9.9 g/dL (12-16); IMMATURE GRANULOCYTES 0.3 % (0-5); LYMPHOCYTES 26.5 % (15-50); MCH 25.3 pg (26.0-34.0); MCHC 31.4 g/dL (31.0-37.0); MCV 80.6 fL (80.0-100.0); MEAN PLATELET VOLUME 9.3 fL (7.4-10.4); MONOCYTES 5.7 % (2-11); NEUTROPHILS 66.3 % (40-80); PLATELET COUNT 180 10x3/uL (130-400); RBC 3.91 10x6/uL (4.00-5.40); RDW 16.3 % (11.5-14.5); WBC 5.8 10x3/uL (4.8-10.8)
[2019-08-21 11:52] LABS: ANION GAP 16.6 mmol/L (8-16); CALCIUM 8.7 mg/dL (8.5-10.1); CARBON DIOXIDE 21.4 mmol/L (21.0-32.0); CREATININE - SERUM 0.9 mg/dL (0.6-1.3)
[2019-08-21 11:59] LABS: ALBUMIN 3.7 g/dL (3.4-5.0); BILIRUBIN - TOTAL 0.32 mg/dL (0.2-1.3)
[2019-08-21 13:58] VITALS: BP 129/82
== END 2019-08-21 14:00 | disposition home or self-care (01) ==
LOC: D.ER 10:46
PROVIDERS: Family Medicine
DX: R10.9 Unspecified abdominal pain (principal); N20.0 Calculus of kidney; Z87.442 Personal history of urinary calculi; R31.9 Hematuria, unspecified; I10 Essential (primary) hypertension

== ENCOUNTER 2019-08-31 21:56 | Emergency (ER) | payer OTHER, MEDICAID ==
[~2019-08-31] VITALS: Ht 170.2 cm; Wt 106.8 kg
[~2019-08-31 21:56] MED LIST changes: +MYRBETRIQ50 MG PO
[2019-08-31 22:00] VITALS: BP 151/91; Ht 170.2 cm; Wt 106.8 kg
[2019-08-31 22:25] LABS: BASOPHILS 0.2 % (0-2); EOSINOPHILS 0.8 % (0-7); HEMATOCRIT 34.1 % (36.0-48.0); HEMOGLOBIN 10.7 g/dL (12-16); IMMATURE GRANULOCYTES 0.2 % (0-5); LYMPHOCYTES 32.4 % (15-50); MCH 25.2 pg (26.0-34.0); MCHC 31.4 g/dL (31.0-37.0); MCV 80.4 fL (80.0-100.0); MEAN PLATELET VOLUME 9.9 fL (7.4-10.4); MONOCYTES 5.2 % (2-11); NEUTROPHILS 61.2 % (40-80); PLATELET COUNT 245 10x3/uL (130-400); RBC 4.24 10x6/uL (4.00-5.40); RDW 15.7 % (11.5-14.5); WBC 8.4 10x3/uL (4.8-10.8)
[2019-08-31 22:28] LABS: APPEARANCE CLOUDY (CLEAR); BILIRUBIN NEGATIVE (NEGATIVE); COLOR RED (YELLOW); GLUCOSE NEGATIVE (NEGATIVE); KETONE NEGATIVE (NEGATIVE); NITRITE NEGATIVE (NEGATIVE); PROTEIN NEGATIVE (NEGATIVE); RED CELLS - URINE >50 /hpf (0-5); SPECIFIC GRAVITY 1.015 (1.005-1.020); UROBILINOGEN NORMAL (NORMAL); WHITE CELLS - URINE 0-5 /hpf (NEGATIVE)
[2019-08-31 22:41] LABS: ALBUMIN 3.9 g/dL (3.4-5.0); ANION GAP 15.7 mmol/L (8-16); BILIRUBIN - TOTAL 0.29 mg/dL (0.2-1.3); CALCIUM 8.9 mg/dL (8.5-10.1); CARBON DIOXIDE 24.1 mmol/L (21.0-32.0); CREATININE - SERUM 0.9 mg/dL (0.6-1.3); POTASSIUM - SERUM 3.8 mmol/L (3.5-5.1); PROTEIN - SERUM 8.2 g/dL (6.4-8.2)
== END 2019-09-01 01:10 | disposition left against medical advice (07) ==
LOC: D.ER 21:56
PROVIDERS: Emergency Medicine
DX: R10.30 Lower abdominal pain, unspecified (principal)

== ENCOUNTER → 2019-09-14 22:36 | Outpatient (CLI) | payer OTHER, MEDICAID ==
[2019-08-31 22:00] VITALS: BMI 36.9
== END | disposition home or self-care (01) ==
LOC: D.LABREF 22:36
PROVIDERS: ATTEND Urology
DX: R82.90 Unspecified abnormal findings in urine (principal); R31.9 Hematuria, unspecified

== ENCOUNTER 2019-10-02 13:01 | Emergency (ER) | payer OTHER, MEDICAID ==
[~2019-10-02] VITALS: Ht 170.2 cm; Wt 111.4 kg
[2019-10-02 13:11] VITALS: Ht 170.2 cm; Wt 111.4 kg
[2019-10-02 13:41] LABS: APPEARANCE HAZY (CLEAR); BILIRUBIN NEGATIVE (NEGATIVE); COLOR RED (YELLOW); GLUCOSE NEGATIVE (NEGATIVE); KETONE NEGATIVE (NEGATIVE); NITRITE NEGATIVE (NEGATIVE); PROTEIN 1+ mg/dL (NEGATIVE); SPECIFIC GRAVITY 1.005 (1.005-1.020); UROBILINOGEN NORMAL (NORMAL)
[2019-10-02 13:46] LABS: BACTERIA NONE SEEN /hpf (NEGATIVE); EPITHELIAL CELLS NSEEN /hpf (0-5); RED CELLS - URINE 25-50 /hpf (0-5); WHITE CELLS - URINE 0-5 /hpf (NEGATIVE)
[2019-10-02 14:16] LABS: ANION GAP 16.8 mmol/L (8-16); CALCIUM 9.6 mg/dL (8.5-10.1); CARBON DIOXIDE 25.2 mmol/L (21.0-32.0); CREATININE - SERUM 0.9 mg/dL (0.6-1.3)
[2019-10-02 14:17] LABS: BASOPHILS 0.3 % (0-2); HEMATOCRIT 35.5 % (36.0-48.0); HEMOGLOBIN 11.1 g/dL (12-16); IMMATURE GRANULOCYTES 0.3 % (0-5); LYMPHOCYTES 32.8 % (15-50); MCH 24.6 pg (26.0-34.0); MCHC 31.3 g/dL (31.0-37.0); MCV 78.5 fL (80.0-100.0); MEAN PLATELET VOLUME 9.6 fL (7.4-10.4); MONOCYTES 4.3 % (2-11); NEUTROPHILS 61.3 % (40-80); PLATELET COUNT 268 10x3/uL (130-400); RBC 4.52 10x6/uL (4.00-5.40); RDW 15.9 % (11.5-14.5); WBC 7.7 10x3/uL (4.8-10.8)
[2019-10-02 14:22] LABS: ALBUMIN 4.1 g/dL (3.4-5.0); BILIRUBIN - TOTAL 0.35 mg/dL (0.2-1.3); PROTEIN - SERUM 8.3 g/dL (6.4-8.2)
[2019-10-02 17:59] VITALS: BP 138/89
[2019-10-04] MEDS ORDERED: ZANAFLEX4 MG PO (13:37)
== END 2019-10-02 18:00 | disposition home or self-care (01) ==
LOC: D.ER 13:01
PROVIDERS: Emergency Medicine
DX: R11.2 Nausea with vomiting, unspecified (principal); R10.2 Pelvic and perineal pain; R31.9 Hematuria, unspecified; E07.9 Disorder of thyroid, unspecified; I10 Essential (primary) hypertension

== ENCOUNTER 2019-10-06 07:17 | Day surgery (SDC) | payer OTHER, MEDICAID ==
[~2019-10-06] VITALS: Ht 170.2 cm; Wt 111.1 kg
[~2019-10-06 07:17] MED LIST changes: +ZANAFLEX4 MG PO
[2019-10-06 07:42] LABS: HEMOGLOBIN 9.5 g/dL (12-16); MCH 24.2 pg (26.0-34.0); MCHC 30.6 g/dL (31.0-37.0); MCV 78.9 fL (80.0-100.0); MEAN PLATELET VOLUME 9.1 fL (7.4-10.4); RBC 3.93 10x6/uL (4.00-5.40); RDW 15.9 % (11.5-14.5); WBC 4.1 10x3/uL (4.8-10.8)
[2019-10-06 07:49] LABS: ANION GAP 14.4 mmol/L (8-16); CALCIUM 8.8 mg/dL (8.5-10.1); CARBON DIOXIDE 24.4 mmol/L (21.0-32.0); CREATININE - SERUM 0.9 mg/dL (0.6-1.3); POTASSIUM - SERUM 3.8 mmol/L (3.5-5.1)
[2019-10-06 08:46] VITALS: BP 108/48; Ht 170.2 cm; Wt 111.1 kg
--- NOTE | 2019-10-06 11:20 | NUR ---
CALL PLACED TO DR ZAFAR REGARDING PATIENT'S COMPLAINTS OF SEVERE DISCOMFORT
--- NOTE | 2019-10-06 12:10 | NUR ---
ABDOMINAL PAIN CONTINUES 8:10, DR. ZAFAR NOTIFIED. SEE NEW ORDERS.
--- NOTE | 2019-10-06 12:55 | NUR ---
DISCHARGE INSTRUCTIONS REVIEWED WITH PATIENT AND SPOUSE. DISCHARGED HOME VIA WHEELCHAIR TO PRIVATE VEHICLE WITH SPOUSE
--- NOTE | 2019-10-07 08:35 | OP ---
PATIENT NAME: REYNALDO FALLON MEDICAL RECORD: [id number] :[birth year] LOCATION:D.OPS ADMISSION DATE: SURGEON: FRED ZAFAR MD DATE OF OPERATION: 10/06/2019 SURGEON: Fred Zafar MD ANESTHESIA: TIVA by Smiley Boykin CRNA. DIAGNOSES: Microscopic hematuria and interstitial cystitis. PROCEDURES: Cystoscopy, hydrodistention of the bladder, intravesical Rimso instillation. FINDINGS: Single ureteral orifices bilaterally. No bladder tumors. Diffusely inflamed bladder. BLOOD LOSS: None. CLINICAL HISTORY: This is a 54-year-old female with complaints of urinary tract infection type symptoms and urge incontinence. She had microscopic hematuria also. Urine cultures have shown mixed contamination. She had a CT scan of the abdomen and pelvis, which does not show any tumors. There is some bilateral punctate nonobstructive kidney stones. Urine cytology has been benign. She has suprapubic pain as well as vaginal pain, dyspareunia, urinary frequency, and nocturia. She has symptoms of interstitial cystitis. She is not allergic to any medications. She was given Ancef truer pinion and wheel to the OR. DESCRIPTION OF PROCEDURE: The patient was given IV sedation. She was placed in lithotomy position and prepped and draped. The bladder is diffusely inflamed. We distended the bladder with at least 600 mL of normal saline for 2 minutes. The bladder was then emptied through the cystoscope sheath. An 18-Czech red rubber catheter was then inserted into the bladder and 50 mL of Rimso solution was instilled into the bladder through the catheter. The catheter was then removed, leaving the solution in the bladder. The patient will hold the solution in for 15 minutes and then void it out. I will see the patient in followup in 2 weeks' time. TRANSINT:[id number] Voice Confirmation ID: [id number] DOCUMENT ID: [id number] FRED ZAFAR MD at 0835 CC: [id number] DICTATION DATE: 10/06/19 1054 WHEEL TRUER: 10/06/19 1840 [facility] 10/06/19 [place] [address]
== END 2019-10-06 12:58 | disposition home or self-care (01) ==
LOC: D.OPS 07:17 → D.PAN 07:55 → D.OPS 07:55
PROVIDERS: Anesthesiology; ATTEND Urology
DX: N30.11 Interstitial cystitis (chronic) with hematuria (principal); R31.29 Other microscopic hematuria; R31.0 Gross hematuria

== ENCOUNTER 2019-12-22 12:40 | Emergency (ER) | payer OTHER, MEDICAID ==
[~2019-12-22] VITALS: Ht 170.2 cm; Wt 110.9 kg
[~2019-12-22 12:40] MED LIST changes: +ALEVE220 MG PO; +NORCO-7.51 TAB PO
[2019-12-22 13:22] VITALS: Ht 170.2 cm; Wt 110.9 kg
[2019-12-22 13:55] LABS: BASOPHILS 0.2 % (0-2); EOSINOPHILS 0.7 % (0-7); HEMATOCRIT 34.7 % (36.0-48.0); HEMOGLOBIN 10.6 g/dL (12-16); IMMATURE GRANULOCYTES 0.2 % (0-5); LYMPHOCYTES 25.6 % (15-50); MCH 23.9 pg (26.0-34.0); MCHC 30.5 g/dL (31.0-37.0); MCV 78.3 fL (80.0-100.0); MEAN PLATELET VOLUME 9.5 fL (7.4-10.4); MONOCYTES 5.2 % (2-11); NEUTROPHILS 68.1 % (40-80); PLATELET COUNT 231 10x3/uL (130-400); RBC 4.43 10x6/uL (4.00-5.40); RDW 16.7 % (11.5-14.5); WBC 9.7 10x3/uL (4.8-10.8)
[2019-12-22 14:04] LABS: CALC OSMOLALITY 280 mosm/kg (275-300); CALCIUM 9.6 mg/dL (8.5-10.1); CHLORIDE - SERUM 102 mmol/L (98-107); CREATININE - SERUM 0.8 mg/dL (0.6-1.3); GLUCOSE 127 mg/dL (74-106); POTASSIUM - SERUM 3.8 mmol/L (3.5-5.1); SODIUM 139 mmol/L (136-145); UREA NITROGEN 16 mg/dL (7-18); eGFR NON AFRICAN AMERICAN 79 mL/min (90-120)
[2019-12-22 14:10] LABS: ALBUMIN 4.3 g/dL (3.4-5.0); ALKALINE PHOSPHATASE 147 U/L (30-120); ALT (SGPT) 22 U/L (10-68); AMYLASE - SERUM 45 U/L (25-115); LIPASE 145 U/L (73-393); PROTEIN - SERUM 8.6 g/dL (6.4-8.2)
[2019-12-22 14:35] LABS: BILIRUBIN NEGATIVE (NEGATIVE); GLUCOSE NEGATIVE (NEGATIVE); KETONE NEGATIVE (NEGATIVE); NITRITE NEGATIVE (NEGATIVE); UROBILINOGEN NORMAL (NORMAL)
[2019-12-22 14:36] LABS: BACTERIA FEW /hpf (NEGATIVE); EPITHELIAL CELLS NSEEN /hpf (0-5); RED CELLS - URINE >50 /hpf (0-5); WHITE CELLS - URINE RARE /hpf (NEGATIVE)
[2019-12-22] MEDS ORDERED: HYDROCODON-ACE1 EAC7 PO (16:39)
[2019-12-22 17:00] VITALS: BP 158/85
== END 2019-12-22 17:08 | disposition home or self-care (01) ==
LOC: D.ER 12:40
PROVIDERS: Family Medicine
DX: R10.9 Unspecified abdominal pain (principal); D64.9 Anemia, unspecified; N20.0 Calculus of kidney; I10 Essential (primary) hypertension; K21.9 Gastro-esophageal reflux disease without esophagitis

== ENCOUNTER 2020-02-18 18:08 | Emergency (ER) | payer OTHER, MEDICAID ==
[~2020-02-18] VITALS: Ht 170.2 cm; Wt 109.1 kg
[~2020-02-18 18:08] MED LIST changes: +HYDROCODON-ACE1 EAC7 PO
[2020-02-18 18:18] VITALS: Ht 170.2 cm; Wt 109.1 kg
[2020-02-18 21:35] VITALS: BP 145/95
== END 2020-02-18 21:35 | disposition home or self-care (01) ==
LOC: D.ER 18:08
DX: R07.9 Chest pain, unspecified (principal); M25.532 Pain in left wrist; W01.10XA Fall on same level from slipping, tripping and stumbling with subsequent striking against unspecified object, initial encounter; Y93.9 Activity, unspecified; Y92.9 Unspecified place or not applicable; E03.9 Hypothyroidism, unspecified; I10 Essential (primary) hypertension; K21.9 Gastro-esophageal reflux disease without esophagitis; R51 Headache; M54.2 Cervicalgia

== ENCOUNTER 2020-04-18 14:14 | Emergency (ER) | payer OTHER, MEDICAID ==
[~2020-04-18] VITALS: Ht 170.2 cm; Wt 109.1 kg
[2020-04-18 14:33] VITALS: BP 146/103; Ht 170.2 cm; Wt 109.1 kg
[2020-04-18 15:24] LABS: BILIRUBIN NEGATIVE (NEGATIVE); GLUCOSE NEGATIVE (NEGATIVE); KETONE NEGATIVE (NEGATIVE); NITRITE NEGATIVE (NEGATIVE); SPECIFIC GRAVITY 1.015 (1.005-1.020); UROBILINOGEN NORMAL (NORMAL)
[2020-04-18 15:25] LABS: BACTERIA FEW /hpf (NEGATIVE); EPITHELIAL CELLS 0-5 /hpf (0-5); WHITE CELLS - URINE 0-5 /hpf (NEGATIVE)
[2020-04-18 15:31] LABS: HEMOGLOBIN 10.5 g/dL (12-16); LYMPHOCYTES 31.4 % (15-50); MCH 23.1 pg (26.0-34.0); MCHC 30.9 g/dL (31.0-37.0); MCV 74.9 fL (80.0-100.0); MEAN PLATELET VOLUME 9.2 fL (7.4-10.4); PLATELET COUNT 224 10x3/uL (130-400); RBC 4.54 10x6/uL (4.00-5.40); RDW 16.5 % (11.5-14.5); WBC 8.7 10x3/uL (4.8-10.8)
[2020-04-18 15:40] LABS: CALCIUM 9.2 mg/dL (8.5-10.1); CARBON DIOXIDE 23.7 mmol/L (21.0-32.0); CREATININE - SERUM 0.9 mg/dL (0.6-1.3); POTASSIUM - SERUM 3.7 mmol/L (3.5-5.1)
[2020-04-18 15:46] LABS: ALBUMIN 4.1 g/dL (3.4-5.0); BILIRUBIN - TOTAL 0.46 mg/dL (0.2-1.3); PROTEIN - SERUM 8.4 g/dL (6.4-8.2)
[2020-04-18] MEDS ORDERED: HYDROCODON-ACE1 EA10 PO (17:18)
== END 2020-04-18 18:01 | disposition home or self-care (01) ==
LOC: D.ER 14:14
PROVIDERS: Emergency Medicine
DX: S37.019A Minor contusion of unspecified kidney, initial encounter (principal); R31.9 Hematuria, unspecified; I10 Essential (primary) hypertension; K21.9 Gastro-esophageal reflux disease without esophagitis; R11.2 Nausea with vomiting, unspecified; W19.XXXA Unspecified fall, initial encounter; Y93.9 Activity, unspecified; Y92.9 Unspecified place or not applicable

== ENCOUNTER 2020-05-13 12:14 | Emergency (ER) | payer OTHER, MEDICAID ==
[~2020-05-13] VITALS: Ht 170.2 cm; Wt 110.5 kg
[~2020-05-13 12:14] MED LIST changes: +HYDROCODON-ACE1 EA10 PO
[2020-05-13 12:17] VITALS: Ht 170.2 cm; Wt 110.5 kg
[2020-05-13 12:44] LABS: BASOPHILS 0.1 % (0-2); EOSINOPHILS 0.6 % (0-7); HEMATOCRIT 35.2 % (36.0-48.0); HEMOGLOBIN 10.8 g/dL (12-16); IMMATURE GRANULOCYTES 0.3 % (0-5); LYMPHOCYTES 32.5 % (15-50); MCH 23.3 pg (26.0-34.0); MCHC 30.7 g/dL (31.0-37.0); MEAN PLATELET VOLUME 9.5 fL (7.4-10.4); MONOCYTES 5.5 % (2-11); PLATELET COUNT 206 10x3/uL (130-400); RBC 4.63 10x6/uL (4.00-5.40); RDW 16.8 % (11.5-14.5); WBC 6.7 10x3/uL (4.8-10.8)
[2020-05-13 12:46] LABS: CALC OSMOLALITY 280 mosm/kg (275-300); CALCIUM 9.5 mg/dL (8.5-10.1); CARBON DIOXIDE 24.2 mmol/L (21.0-32.0); CHLORIDE - SERUM 104 mmol/L (98-107); CREATININE - SERUM 0.8 mg/dL (0.6-1.3); GLUCOSE 111 mg/dL (74-106); POTASSIUM - SERUM 3.9 mmol/L (3.5-5.1); SODIUM 140 mmol/L (136-145); UREA NITROGEN 14 mg/dL (7-18); eGFR NON AFRICAN AMERICAN 79 mL/min (90-120)
[2020-05-13 12:54] LABS: ALBUMIN 4.1 g/dL (3.4-5.0); ALKALINE PHOSPHATASE 154 U/L (30-120); ALT (SGPT) 21 U/L (10-68); AMYLASE - SERUM 46 U/L (25-115); LIPASE 119 U/L (73-393); PROTEIN - SERUM 8.6 g/dL (6.4-8.2)
[2020-05-13 12:55] LABS: TROPONIN-I < 0.017 ng/mL (0.000-0.060)
[2020-05-13 14:39] LABS: BILIRUBIN NEGATIVE (NEGATIVE); GLUCOSE NEGATIVE (NEGATIVE); KETONE NEGATIVE (NEGATIVE); NITRITE NEGATIVE (NEGATIVE); UROBILINOGEN NORMAL (NORMAL)
[2020-05-13 14:40] LABS: BACTERIA FEW /hpf (NEGATIVE); EPITHELIAL CELLS 0-5 /hpf (0-5); RED CELLS - URINE 25-50 /hpf (0-5); WHITE CELLS - URINE 0-5 /hpf (NEGATIVE)
[2020-05-13] MEDS ORDERED: ZOFRAN ODT4 MG/UDTAB PO (14:57)
[2020-05-13] MEDS ORDERED: LEVSIN/ANASP0.125 MG PO (14:57)
[2020-05-13 15:32] VITALS: BP 132/81
== END 2020-05-13 15:33 | disposition home or self-care (01) ==
LOC: D.ER 12:14
PROVIDERS: Family Medicine
DX: R10.9 Unspecified abdominal pain (principal); R19.7 Diarrhea, unspecified; I10 Essential (primary) hypertension; K21.9 Gastro-esophageal reflux disease without esophagitis

== ENCOUNTER 2020-06-06 12:24 | Observation (INO) | payer OTHER, MEDICAID ==
[2020-06-06] VITALS (8 sets, daily range): BP systolic 124–172; BP diastolic 75–93; Ht 170.2 cm; Wt 109.1 kg
[~2020-06-06] VITALS: Ht 170.2 cm; Wt 109.1 kg
[~2020-06-06 12:24] MED LIST changes: +LEVSIN/ANASP0.125 MG PO
[2020-06-06 12:49] LABS: BASOPHILS 0.1 % (0-2); EOSINOPHILS 0.6 % (0-7); HEMATOCRIT 34.1 % (36.0-48.0); HEMOGLOBIN 10.6 g/dL (12-16); IMMATURE GRANULOCYTES 0.2 % (0-5); LYMPHOCYTES 25.1 % (15-50); MCH 23.4 pg (26.0-34.0); MCHC 31.1 g/dL (31.0-37.0); MCV 75.3 fL (80.0-100.0); MEAN PLATELET VOLUME 9.2 fL (7.4-10.4); MONOCYTES 5.5 % (2-11); NEUTROPHILS 68.5 % (40-80); PLATELET COUNT 190 10x3/uL (130-400); RBC 4.53 10x6/uL (4.00-5.40); RDW 16.7 % (11.5-14.5); WBC 8.2 10x3/uL (4.8-10.8)
[2020-06-06 13:02] LABS: CALC OSMOLALITY 278 mosm/kg (275-300); CALCIUM 9.5 mg/dL (8.5-10.1); CARBON DIOXIDE 23.1 mmol/L (21.0-32.0); CHLORIDE - SERUM 102 mmol/L (98-107); GLUCOSE 133 mg/dL (74-106); SODIUM 138 mmol/L (136-145); UREA NITROGEN 14 mg/dL (7-18); eGFR NON AFRICAN AMERICAN 61 mL/min (90-120)
[2020-06-06 13:17] LABS: ALBUMIN 4.4 g/dL (3.4-5.0); ALKALINE PHOSPHATASE 135 U/L (30-120); ALT (SGPT) 24 U/L (10-68); BILIRUBIN - TOTAL 0.44 mg/dL (0.2-1.3); CKMB 0.6 U/L (0.0-3.6); CREATINE KINASE 61 UL (21-215); MAGNESIUM - SERUM 1.9 mg/dL (1.8-2.4); PROTEIN - SERUM 8.8 g/dL (6.4-8.2); TROPONIN-I < 0.017 ng/mL (0.000-0.060)
[2020-06-06 13:26] LABS: APTT 31.2 SECONDS (22.8-39.4); INR 1.03 (0.85-1.17); PROTIME 13.4 SECONDS (11.6-15.0)
--- NOTE | 2020-06-06 16:25 | NUR ---
ATTEMPTED TO CALL REPORT NURSE UNAVAILABLE
--- NOTE | 2020-06-06 16:48 | NUR ---
RECIEVE REPORT FROM [facility] ALBRECHT. COMPLAINTS OF CHEST PAIN. CARDIOLOGY CONSULT. PATIENT ARRIVES IN ROOM VIA WHEELCHAIR AT 1700. NO SIGNS OF DISTRESS. VITAL SIGNS 124/89, 88, 18, 98.2, 96 % RA. DENIES ANY NEEDS AT THIS TIME. ASSESSMENT AND HISTORY DONE. WILL CONTINUE PLAN OF CARE AND SAFETY PRECAUTIONS.
--- NOTE | 2020-06-06 16:50 | NUR ---
REPORT TO [facility]
--- NOTE | 2020-06-06 17:00 | NUR ---
ADMIT TO ROOM # 2115, CONDITION STABLE
--- NOTE | 2020-06-06 17:43 | NUR ---
PATIENT REFUSE SCD'S.
[2020-06-06 17:54] LABS: CHOL - HDL RATIO 5.1 ratio (2.3-4.1); LDL-HDL RATIO 3.6 ratio (1.5-3.5)
[2020-06-07] VITALS: BP 105/66
[2020-06-07 04:00] VITALS: BP 99/61
[2020-06-07 06:34] LABS: ALBUMIN 4.2 g/dL (3.4-5.0); ALKALINE PHOSPHATASE 132 U/L (30-120); ALT (SGPT) 24 U/L (10-68); AMYLASE - SERUM 36 U/L (25-115); BILIRUBIN - TOTAL 0.44 mg/dL (0.2-1.3); CALC OSMOLALITY 279 mosm/kg (275-300); CALCIUM 9.3 mg/dL (8.5-10.1); CARBON DIOXIDE 24.8 mmol/L (21.0-32.0); CHLORIDE - SERUM 103 mmol/L (98-107); CHOL - HDL RATIO 4.9 ratio (2.3-4.1); CHOLESTEROL, TOTAL 249 mg/dL (0-200); CKMB 0.7 U/L (0.0-3.6); CREATINE KINASE 53 UL (21-215); CREATININE - SERUM 1.1 mg/dL (0.6-1.3); GLUCOSE 128 mg/dL (74-106); HDL CHOLESTEROL 51 mg/dL (32-96); LDL CHOLESTEROL 172 mg/dL (0-100); LDL-HDL RATIO 3.4 ratio (1.5-3.5); POTASSIUM - SERUM 3.6 mmol/L (3.5-5.1); PROTEIN - SERUM 8.4 g/dL (6.4-8.2); SODIUM 138 mmol/L (136-145); TRIGLYCERIDE 133 mg/dL (30-200); TROPONIN-I < 0.017 ng/mL (0.000-0.060); eGFR NON AFRICAN AMERICAN 55 mL/min (90-120)
[2020-06-07 06:35] LABS: UREA NITROGEN 18 mg/dL (7-18)
[2020-06-07 06:53] LABS: HEMATOCRIT 33.3 % (36.0-48.0); HEMOGLOBIN 10.1 g/dL (12-16); LYMPHOCYTES 41.6 % (15-50); MCHC 30.3 g/dL (31.0-37.0); MCV 75.9 fL (80.0-100.0); NEUTROPHILS 50.4 % (40-80); PLATELET COUNT 211 10x3/uL (130-400); RBC 4.39 10x6/uL (4.00-5.40); RDW 16.3 % (11.5-14.5); WBC 7.6 10x3/uL (4.8-10.8)
--- NOTE | 2020-06-07 08:15 | NUR ---
SPOKE WITH KENNEDY FROM [place] AND SHE STATES PT CAN HAVE AM MEDS WITH A SIP OF WATER AND PT CAN HAVE PAIN MEDICATION. JUST NPO AFTER AND NO CAFFEINE. I VERBALIZED UNDERSTANDING.
[2020-06-07 09:32] VITALS: BP 115/67
--- NOTE | 2020-06-07 18:01 | NUR ---
I have reviewed this patient and I concur with the Shift Assessment completed by the Licensed Practical Nurse today this shift.
[2020-06-07 18:10] VITALS: BP 105/47
[2020-06-07 20:00] VITALS: BP 105/63
[2020-06-08] VITALS: BP 124/71
[2020-06-08 04:00] VITALS: BP 97/65
[2020-06-08 08:16] VITALS: BP 135/90
[2020-06-08 10:01] VITALS: BP 105/63
[2020-06-08] MEDS ORDERED: LIPITOR20 MG PO (10:40)
[2020-06-08] MEDS ORDERED: ASPIRIN325 MG PO (10:40)
--- NOTE | 2020-06-08 11:38 | NUR ---
PT DISCHARGED HOME VIA WHEELCHAIR WITH FAMILY. PIV REMOVED WITH CATHETER TIP FULLY INTACT. TELEMETRY REMOVED AND RETURNED. PT SIGNED PROPER DISCHARGE INSTRUCTIONS AND REMOVED ALL VALUABLES FROM THE ROOM.
== END 2020-06-08 11:39 | disposition home or self-care (01) ==
LOC: D.ER 12:24 → OBSVTIME 15:48 → D.M2 15:48
PROVIDERS: Family Medicine; Internal Medicine Cardiovascular Disease; ADMIT Family Medicine; ATTEND Family Medicine
DX: I20.0 Unstable angina (principal); R07.89 Other chest pain; E11.9 Type 2 diabetes mellitus without complications; I10 Essential (primary) hypertension; K21.9 Gastro-esophageal reflux disease without esophagitis; D50.9 Iron deficiency anemia, unspecified; K58.9 Irritable bowel syndrome, unspecified; R11.2 Nausea with vomiting, unspecified; F34.1 Dysthymic disorder; R94.31 Abnormal electrocardiogram [ECG] [EKG]; I26.99 Other pulmonary embolism without acute cor pulmonale

== ENCOUNTER 2020-07-03 16:47 | Emergency (ER) | payer OTHER, MEDICAID ==
[~2020-07-03] VITALS: Ht 170.2 cm; Wt 109.1 kg
[~2020-07-03 16:47] MED LIST changes: +ASPIRIN325 MG PO; +LIPITOR20 MG PO
[2020-07-03 17:18] VITALS: Ht 170.2 cm; Wt 109.1 kg
[2020-07-03 19:58] LABS: BASOPHILS 0.3 % (0-2); EOSINOPHILS 0.8 % (0-7); HEMOGLOBIN 10.3 g/dL (12-16); IMMATURE GRANULOCYTES 0.3 % (0-5); LYMPHOCYTES 35.5 % (15-50); MCH 23.5 pg (26.0-34.0); MCHC 31.2 g/dL (31.0-37.0); MCV 75.2 fL (80.0-100.0); MEAN PLATELET VOLUME 9.6 fL (7.4-10.4); MONOCYTES 5.8 % (2-11); NEUTROPHILS 57.3 % (40-80); PLATELET COUNT 202 10x3/uL (130-400); RBC 4.39 10x6/uL (4.00-5.40); WBC 7.6 10x3/uL (4.8-10.8)
[2020-07-03 20:14] LABS: KETONE NEGATIVE (NEGATIVE); NITRITE NEGATIVE (NEGATIVE); UROBILINOGEN NORMAL mg/dL (< 2)
[2020-07-03 20:15] LABS: BILIRUBIN NEGATIVE (NEGATIVE); WHITE CELLS - URINE 0-5 HPF (0-4)
[2020-07-03 20:16] LABS: BACTERIA MANY HPF (NONE SEEN); EPITHELIAL CELLS OCC /hpf (0-5)
[2020-07-03 20:19] LABS: CALC OSMOLALITY 277 mosm/kg (275-300); CALCIUM 9.3 mg/dL (8.5-10.1); CARBON DIOXIDE 21.3 mmol/L (21.0-32.0); CHLORIDE - SERUM 105 mmol/L (98-107); CREATININE - SERUM 0.8 mg/dL (0.6-1.3); GLUCOSE 127 mg/dL (74-106); POTASSIUM - SERUM 3.6 mmol/L (3.5-5.1); SODIUM 138 mmol/L (136-145); UREA NITROGEN 12 mg/dL (7-18); eGFR NON AFRICAN AMERICAN 79 mL/min (90-120)
[2020-07-03 20:30] LABS: ALBUMIN 4.1 g/dL (3.4-5.0); ALKALINE PHOSPHATASE 129 U/L (30-120); ALT (SGPT) 18 U/L (10-68); AMYLASE - SERUM 48 U/L (25-115); BILIRUBIN - TOTAL 0.31 mg/dL (0.2-1.3); LIPASE 149 U/L (73-393); PROTEIN - SERUM 8.5 g/dL (6.4-8.2)
[2020-07-03 20:35] LABS: TROPONIN-I < 0.017 ng/mL (0.000-0.060)
[2020-07-03] MEDS ORDERED: KEFLEX500 MG PO (21:36)
[2020-07-03] MEDS ORDERED: ZOFRAN ODT4 MG/UDTAB PO (21:36)
[2020-07-03] MEDS ORDERED: VOLTAREN75 MG PO (21:36)
[2020-07-03 21:58] VITALS: BP 146/82
== END 2020-07-03 21:58 | disposition home or self-care (01) ==
LOC: D.ER 16:47
PROVIDERS: Emergency Medicine
DX: R31.9 Hematuria, unspecified (principal); R10.9 Unspecified abdominal pain; E11.9 Type 2 diabetes mellitus without complications; I10 Essential (primary) hypertension; K21.9 Gastro-esophageal reflux disease without esophagitis

== ENCOUNTER → 2020-12-19 09:07 | Outpatient (CLI) | payer OTHER, MEDICAID ==
[2020-11-24 23:26] VITALS: BMI 38.6
[~2020-12-19 09:07] MED LIST changes: +COMPAZINE25 MG RC; +DICLOFENAC SODI50 MG PO; +FLOMAX0.4 MG PO; +KEFLEX500 MG PO; +VOLTAREN75 MG PO
== END | disposition home or self-care (01) ==
LOC: D.NM 11-13 11:30
PROVIDERS: ATTEND Internal Medicine Gastroenterology
DX: R11.2 Nausea with vomiting, unspecified (principal); R68.81 Early satiety

== ENCOUNTER 2021-01-05 08:46 | Emergency (ER) | payer OTHER, MEDICAID ==
[~2021-01-05] VITALS: Ht 170.2 cm; Wt 111.8 kg
[2021-01-05 08:52] VITALS: BP 189/125; Ht 170.2 cm; Wt 111.8 kg
[2021-01-05 09:14] LABS: BILIRUBIN NEGATIVE (NEGATIVE); KETONE NEGATIVE (NEGATIVE); NITRITE NEGATIVE (NEGATIVE); UROBILINOGEN NORMAL mg/dL (< 2)
[2021-01-05 09:15] LABS: SQUAMOUS EPITHELIAL 0-5 HPF (0-4)
[2021-01-05 09:16] LABS: BACTERIA FEW HPF (NONE SEEN)
[2021-01-05 09:16] LABS: BASOPHILS 0.4 % (0-2); EOSINOPHILS 0.9 % (0-7); HEMATOCRIT 31.7 % (36.0-48.0); HEMOGLOBIN 9.6 g/dL (12-16); IMMATURE GRANULOCYTES 0.2 % (0-5); LYMPHOCYTE ABS# 1.75 10x3/uL (1.18-3.74); LYMPHOCYTES 30.8 % (15-50); MCH 22.4 pg (26.0-34.0); MCHC 30.3 g/dL (31.0-37.0); MCV 73.9 fL (80.0-100.0); MEAN PLATELET VOLUME 9.7 fL (7.4-10.4); MONOCYTES 8.4 % (2-11); NEUTROPHIL ABS# 3.38 10x3/uL (1.56-6.13); NEUTROPHILS 59.3 % (40-80); PLATELET COUNT 178 10x3/uL (130-400); RBC 4.29 10x6/uL (4.00-5.40); RDW 18.2 % (11.5-14.5); WBC 5.7 10x3/uL (4.8-10.8)
[2021-01-05 09:29] LABS: CALC OSMOLALITY 273 mosm/kg (275-300); CALCIUM 9.3 mg/dL (8.5-10.1); CARBON DIOXIDE 21.4 mmol/L (21.0-32.0); CHLORIDE - SERUM 102 mmol/L (98-107); CREATININE - SERUM 0.9 mg/dL (0.6-1.3); POTASSIUM - SERUM 3.9 mmol/L (3.5-5.1); SODIUM 136 mmol/L (136-145); UREA NITROGEN 12 mg/dL (7-18); eGFR NON AFRICAN AMERICAN 69 mL/min (90-120)
[2021-01-05 09:33] LABS: GLUCOSE 140 mg/dL (74-106)
[2021-01-05 09:37] LABS: ALBUMIN 3.9 g/dL (3.4-5.0); ALKALINE PHOSPHATASE 124 U/L (30-120); ALT (SGPT) 16 U/L (10-68); AMYLASE - SERUM 35 U/L (25-115); BILIRUBIN - TOTAL 0.31 mg/dL (0.2-1.3); LIPASE 130 U/L (73-393)
[2021-01-05 09:38] LABS: TROPONIN-I < 0.017 ng/mL (0.000-0.060)
[2021-01-05] MEDS ORDERED: MACROBID100 MG PO (11:25)
[2021-01-05] MEDS ORDERED: ACETAMINOPHEN500 M1 PO (11:25)
== END 2021-01-05 12:13 | disposition home or self-care (01) ==
LOC: D.ER 08:46
PROVIDERS: Family Medicine
DX: N39.0 Urinary tract infection, site not specified (principal); R10.32 Left lower quadrant pain; R11.2 Nausea with vomiting, unspecified; E11.9 Type 2 diabetes mellitus without complications; I10 Essential (primary) hypertension; K76.0 Fatty (change of) liver, not elsewhere classified

== ENCOUNTER 2021-02-05 11:19 | Observation (INO) | payer OTHER, MEDICAID ==
[~2021-02-05] VITALS: Ht 170.2 cm; Wt 111.8 kg
--- NOTE | ~2021-02-05 | OP ---
PATIENT NAME: REYNALDO FALLON MEDICAL RECORD: [id number] :67 LOCATION:D.M2 D.2110 ADMISSION DATE:02/05/21 SURGEON: ANABELLE FLORES MD DATE OF OPERATION: 02/06/2021 PROCEDURE: Left heart catheterization, selective coronary angiography, right femoral artery approach. CATHETERS: A 5-Khmer sheath, 5/4 left and right Carlos, 5/4 pig. The procedure was well tolerated. The patient was returned to the laguerre. Sheath removed. ExoSeal device was placed. FINDINGS: Left ventriculography not performed. AORTIC ROOT INJECTION: Aortic root injection was performed due to difficulty crossing the aortic valve. This showed a tricuspid aortic valve with mild AI and normal-sized aortic root, did have an anterior takeoff of the right. CORONARY ANATOMY: Left main: Left main is free of disease. LAD: Free of disease in diagonal system. Circumflex: Free of disease in marginal system. Right coronary artery: Dominant artery, gives rise to the PDA. This has a very anterior takeoff requiring 3 diagnostic catheters to engage, but this showed free of disease. IMPRESSION: Normal coronary anatomy. Mild AI. Tricuspid aortic valve. No evidence of obstructive coronary artery disease. Continued risk factor modification. TRANSINT:[id number] Voice Confirmation ID: [id number] DOCUMENT ID: [id number] ANABELLE FLORES MD CC: [id number] DICTATION DATE: 02/06/21 1149 BOTTLE FILLER: 02/06/21 1742 ADM IN [facility] [address] [place] [address]
--- NOTE | ~2021-02-05 | HEMODYNAMI ---
PATIENT:REYNALDO FALLON MEDICAL RECORD: [id number] : 67 LOCATION:[facility] D.1 ADMISSION DATE: 02/05/21 Generatedon:111:48 Patient name: REYNALDO FALLON Patient #: [id number] SSN: : 1965 Date of study: 02/06/2021 Page: Of Hemodynamic Procedure Report Patient Data Patient Demographics Procedure consent was obtained First Name: REYNALDO Gender: Female Last Name: VASYL : 1965 [facility] Initial: MICHELLE Age: 55 year(s) Patient #: [id number] Race: Unknown Additional ID: [id number] Contact details [address]: [address] [place] [address] State: [place] City: [place] Zip code: [address] Past Medical History Allergies: No known allergies Admission Admission Data Admission Date: 02/05/2021 Admission Time: 16:50 Admit Source: Emergency department Room #: D.2110 Lab Results Lab Result Date: 02/06/2021 Lab Result Time: 0:00 Biochemistry Name Units Result Min Max Creatinine mg/dl 0.8 --(-*--)-- 0.6 1.3 Troponin l ng/ml 0.017 --(-*--)-- 0 0.06 CBC Name Units Result Min Max Hemoglobin g/dl 9.3 *-(----)-- 13.5 17.5 Procedure Procedure Types Cath Procedure Diagnostic Procedure LHC Coronaries only Aortic Root Angiography Sedation Charges Moderate Sedation 10-24 minutes Procedure Description Procedure Date Procedure Date: 02/06/2021 Procedure Start Time: 11:30 Procedure End Time: 11:46 Procedure Staff Name Function Manish Anthony MD Performing Physician Leonor Love RT Monitor Kike Lira RN Nurse Nabil Barger RN Nurse Laura Lowery RT Scrub Procedure Data Cath Procedure Fluoroscopy Diagnostic fluoroscopy Total fluoroscopy Time: 5.5 time: 5.5 min min Diagnostic fluoroscopy Total fluoroscopy dose: 636 dose: 636 mGy mGy Contrast Material Contrast Material Type Amount (ml) Isovue 370 84 Entry Location Entry Primary Successful Side Size Upsize Upsize Entry Closure Succes sful Closure Location (Fr) 1 (Fr) 2 (Fr) Remarks Device Remarks Femoral Right 5 Fr Exoseal artery Estimated blood loss: 5 ml Diagnostic catheters Device Type Used For End Catheter Placement MULTIPACK JL 4.0 5Fr Left Coronary catheter Angiography MULTIPACK 3DRC 5Fr Right Coronary catheter Angiography DIAGNOSTIC AR MOD 5Fr Right Coronary Catheter ([id number]) Angiography DIAGNOSTIC JR 3.5 5Fr Right Coronary catheter ([id number]) Angiography MULTIPACK Pigtail 5 Fr Aortic Root catheter Angiography Procedure Complications No complications Procedure Medications Medication Administration Route Dosage Oxygen etCO2 Nasal cannula 2 l/min Lidocaine 2% added to field 20 Heparin Flush Bag added to field 2 bags (1000units/500ml NS) 0.9% NaCl I.V. 100 ml/hr Fentanyl I.V. 50 mcg Versed I.V. 1 mg Fentanyl I.V. 50 mcg Versed I.V. 1 mg Versed I.V. 1 mg Versed I.V. 1 mg Hemodynamics Rest Heart Rate: 78 (bpm) Snapshots Pre Cath Intra NCS Post Cath Vital Signs Time Heart Resp SPO2 etCO2 NIBP (mmHg) Rhythm Pain Sedation Rate (ipm) (%) (mmHg) Status Level (bpm) 11:18:19 86 12 99 0 159/105(131) NSR 0 (11) 10(A) , No pain 11:22:45 86 17 100 35.4 144/92(121) NSR 0 (11) 10(A) , No pain 11:27:09 85 18 97 31.7 137/89(110) NSR 0 (11) 10(A) , No pain 11:31:31 92 18 97 5.2 133/92(113) NSR 0 (11) 10(A) , No pain 11:35:51 93 19 97 33.9 139/89(106) NSR 0 (11) 9(A) , No pain 11:40:16 97 21 98 33.1 133/85(108) NSR 0 (11) 9(A) , No pain 11:44:36 101 16 99 20.3 130/94(118) NSR 0 (11) 10(A) , No pain Medications Time Medication Route Dose Verified Delivered Reason Notes Eff ectiveness by by 11:21:02 Oxygen etCO2 2 Manish Stokes used for Nasal l/min GabrielleTyree Lira blood bank technician cannula 11:21:31 Lidocaine 2% added 20ml Manish Hammond for local to vial [facility] anesthetic field MD JOHNSON 11:21:37 Heparin Flush added 2 Manish Hammond used for Bag to bags [facility] procedure (1000units/500ml field MD JOHNSON NS) 11:21:44 0.9% NaCl I.V. 100 Manish Stokes Per ml/hr St Tyree Lira RN physician 11:29:29 Versed I.V. 1 mg Manish Stokes for GabrielleTyree Lira RN sedation 11:30:21 Fentanyl I.V. 50 Manish Nailsie for mcg GabrielleTyree Lira RN sedation 11:34:00 Fentanyl I.V. 50 Manish Nailsie for mcg GabrielleTyree Lira RN sedation 11:34:28 Versed I.V. 1 mg Manish Nailsie for GabrielleTyree Lira RN sedation 11:38:01 Versed I.V. 1 mg Manish Nailsie for GabrielleTyree Lira RN sedation 11:38:05 Versed I.V. 1 mg Manish Nailsie for GabrielleTyree Lira RN sedation Procedure Log Time Note 11:07:29 Kike Lira RN sent for patient. Start room use. 11:07:31 Time tracking: Regular hours (M-F 7:00 - 5:00) 11:07:35 Plan of Care:Hemodynamics will remain stable., Cardiac rhythm will remain stable., Comfort level will be maintained., Respiratory function will remain adequate., Patient/ family verbilizes understanding of procedure., Procedure tolerated without complication., Recovers from procedure without complications.. 11:07:51 Admit Source: Emergency department 11:08:58 ACC Patient presents with Unstable Angina CCS Anginal Class 3--Marked limitation of physical activity, angina occurs with ordinary activity.. 11:09:35 ACCPatient has been prescribed/administered the following anti-anginal medication within the last 2 weeks: None 11:14:13 Patient received from PCU to CCL 1 Alert and oriented. Tansferred to table in Supine position. 11:14:14 Warm blankets applied, and alex hugger turned on for patient comfort. 11:14:16 Signed procedure consent form obtained from patient. 11:14:17 Correct patient and procedure confirmed by team. 11:14:17 ECG and BP/O2 sat monitors applied to patient. 11:14:19 Full Disclosure recording started 11:15:00 H&P Date Dictated: 02/05/2021 Within 30 days and on chart.. 11:15:01 Pre-procedure instructions explained to patient. 11:15:02 Pre-op teaching completed and patient verbalized understanding. 11:15:04 Family in patients room. 11:15:06 Patient NPO since Midnight. 11:15:18 Patient allergic to No known allergies 11:15:20 Is the patient allergic to Iodine/contrast media? No. 11:15:23 Is patient on blood thinner?No 11:15:28 Bleeding risk 23.1%. 11:15:31 Patient diabetic? Yes. 11:15:32 If diabetic: On Metformin? No 11:15:36 Previous problem with sedation/anesthesia? No ? 11:15:38 Snore? Yes 11:15:39 Sleep apnea? No 11:15:40 Deviated septum? No 11:15:40 Opens mouth fully? Yes 11:15:41 Sticks out tongue? Yes 11:15:43 Airway obstruction? No ? 11:15:45 Dentures? No ? 11:16:58 Vital chart was started 11:18:35 Pre procedure: right dorsailis pedis pulse 2+ Normal; easily identifiable; not easily obliterated 11:18:40 Patient pain scale 0/10 ?. 11:18:50 IV patent on arrival in right hand with 0.9% NaCl at O. 11:18:55 Lab results completed and on chart. 11:19:28 Lab Result : Creatinine 0.8 mg/dl 11:19:28 Lab Result : Troponin l 0.017 ng/ml 11:19:28 Lab Result : Hemoglobin 9.3 g/dl 11:19:57 Right groin area was prepped with chlora-prep and draped in sterile fashion 11:20:11 Alarms reviewed by R. N. 11:20:14 Sharps counted by scrub and verified by R.N. 11:20:49 Physician paged 11:21:02 Oxygen 2 l/min etCO2 Nasal cannula was administered by Kike Lira RN; used for procedure; Verbal order read back and verified. 11:21:31 Lidocaine 2% 20ml vial added to field was administered by Manish Anthony MD; for local anesthetic; Verbal order read back and verified. 11:21:37 Heparin Flush Bag (1000units/500ml NS) 2 bags added to field was administered by Manish Anthony MD; used for procedure; Verbal order read back and verified. 11:21:44 0.9% NaCl 100 ml/hr I.V. was administered by Kike Lira RN; Per physician; Verbal order read back and verified. 11:23:36 IV Extension Set opened to sterile field. 11:23:48 Use device set Femoral Dx 11:23:49 ACIST Syringe (64796) opened to sterile field. 11:23:50 Bag Decanter (2002S) opened to sterile field. 11:23:51 Medline Cath Pack ([id number]) opened to sterile field. 11:23:52 ACIST Hand Control (29872) opened to sterile field. 11:23:52 ACIST Manifold (42848) opened to sterile field. 11:23:53 DIAGNOSTIC Multipack 5Fr catheter set (CF6923) opened to sterile field. 11:23:55 SHEATH 5FR [place] (VFM111) opened to sterile field. 11:23:55 EMERALD Guide Wire (686-122) opened to sterile field. 11:27:38 Baseline sample Acquired. 11:29:26 Final Timeout: patient, procedure, and site verified with staff and physician. All members of the team are in agreement. 11:29:28 Right groin site verified by team. 11:29:29 Versed 1 mg I.V. was administered by Kike Lira RN; for sedation; Verbal order read back and verified. 11:29:33 Fire Safety Assessment: A--An alcohol-based skin anteseptic being used preoperatively., C--Open oxygen or nitrous oxide is being used., D--An ESU, laser, or fiber-optic light is being used. 11:29:37 Physical assessment completed. ASA score P 2 - A patient with mild systemic disease as per Manish Anthony MD. 11:29:44 3a) 45-59 Moderately reduced kidney function. 11:29:47 Maximum allowable contrast dose (3.7 X eGFR X 0.75)219 ml. 11:29:51 Sedation plan: IV Moderate Sedation Medication:Versed, Fentanyl 11:30:21 Fentanyl 50 mcg I.V. was administered by Kike Lira RN; for sedation; Verbal order read back and verified. 11:30:26 Procedure started. 11:30:30 Local anesthetic to right femoral artery with Lidocaine 2% by Manish Anthony MD.INITIAL ACCESS ONLY 11:30:59 A 5 Fr sheath was inserted into the Right Femoral artery 11:31:56 A MULTIPACK JL 4.0 5Fr catheter was advanced over the wire and used for Left Coronary Angiography. 11:33:09 Catheter removed. 11:33:51 A MULTIPACK 3DRC 5Fr catheter was advanced over the wire and used for Right Coronary Angiography.Unable to cannulate 11:34:00 Fentanyl 50 mcg I.V. was administered by Kike Lira RN; for sedation; Verbal order read back and verified. 11:34:28 Versed 1 mg I.V. was administered by Kike Lira RN; for sedation; Verbal order read back and verified. 11:35:01 Catheter removed. 11:35:28 A DIAGNOSTIC AR MOD 5Fr Catheter ([id number]) was advanced over the wire and used for Right Coronary Angiography.unable to cannulate 11:37:18 Catheter removed. 11:38:01 Versed 1 mg I.V. was administered by Kike Lira RN; for sedation; Verbal order read back and verified. 11:38:05 Versed 1 mg I.V. was administered by Kike Lira RN; for sedation; Verbal order read back and verified. 11:38:06 A DIAGNOSTIC JR 3.5 5Fr catheter ([id number]) was advanced over the wire and used for Right Coronary Angiography. 11:38:52 Catheter removed. 11:39:03 A MULTIPACK Pigtail 5 Fr catheter was advanced over the wire and used for Aortic Root Angiography. 11:39:14 Zero performed for pressure channel P1 11:39:36 Tegaderm 4 x 4 (1626W) opened to sterile field. 11:39:37 EXOSEAL 5Fr (EX500) opened to sterile field. 11:42:32 Catheter removed. 11:42:44 Sheath removed intact; hemostasis achieved with Exoseal to the Right Femoral artery. 11:44:01 Procedure ended.(Physican Out) 11:44:11 Fluoroscopy time 05.50 minutes. 11:44:16 Fluoroscopy dose: 636 mGy 11:44:16 Flurop Dose total: 636 11:44:21 Dose Area Product 41.8 mGy/cm. 11:44:26 Contrast amount:Isovue 370 84ml. 11:44:28 Maximum allowable dose exceeded? No. 11:44:29 Sharps counted by scrub and verified by R.N. 11:44:30 Insertion/operative site no bleeding no hematoma. 11:44:33 Post-op/insertion site Right Femoral artery dressed using a 4 x 4 and Tegaderm. 11:44:36 Post right femoral artery:stable, clean and dry 11:44:38 Post Procedure Pulses reassessed and unchanged 11:44:40 Post-procedure physical assessment completed. ASA score P 2 - A patient with mild systemic disease as per Manish Anthony MD. 11:44:42 Post procedure rhythm: unchanged. 11:44:44 Estimated blood loss: 5 ml 11:44:45 Post procedure instruction explained to patient.Patient verbalizes understanding. 11:44:46 Patient needs reinforcement of post procedure teaching. 11:45:06 Procedure type changed to Cath procedure, Diagnostic procedure, LHC, Coronaries only, Aortic Root Angiography, Sedation Charges, Moderate Sedation 10-24 minutes 11:45:12 Procedure Complication : No complications 11:45:16 Operative report dictated upon procedure completion. 11:45:16 See physician's report for complete and final results. 11:45:46 Report given to PCU. 11:45:56 Patient transfered to PCU with Bed. 11:46:57 Procedure ended. 11:46:57 Full Disclosure recording stopped 11:47:13 End room use (Document Last) 11:47:45 End room use (Document Last) 11:47:55 End room use (Document Last) 11:47:55 Laura Lowery RT(R) was relieved by Leonor Counts RT(R) as monitoring person 11:48:14 End room use (Document Last) 11:48:19 Leonor Counts RT(R) was relieved by Leonor Counts RT(R) as monitoring person 11:48:19 End room use (Document Last) 11:48:37 Vital chart was stopped Device Usage Item Name Manufacture Quantity Catalog Hospital Part Current Minimal L ot# / Number Charge Number Stock Stock Serial# Code IV Hospira 1 98564-02 526247 87122 750353 5 Extension Set ACIST Acist 1 22798 857633 637132 996082 20 Syringe Medical (83317) Systems Inc Bag Microtek 1 776351 46371 693977 5 Decanter Medical Inc. () Medline Medline 1 [id number] 586462 69624 713737 5 Cath Pack ([id number]) ACIST Hand Acist 1 63367 084953 589932 663967 5 Control Medical (48642) Systems Inc ACIST Acist 1 70369 192971 754895 983165 5 Manifold Medical (85355) Systems Inc DIAGNOSTIC Cardinal 1 [id number] 722823 08488 989260 30 Multipack Health 5Fr catheter set (JC6509) SHEATH 5FR Terumo 1 WJA401 527239 130943 926162 5 [place] (QJN063) EMERALD Cardinal 1 502-455 250484 295703 432273 5 Guide Wire [facility] (502455) MULTIPACK Cardinal 1 861663 5 JL 4.0 5Fr Health catheter MULTIPACK Cardinal 1 527807 5 3DRC 5Fr Health catheter DIAGNOSTIC Cardinal 1 [id number] 900481 273302 249991 15 AR MOD 5Fr Health Catheter (590615I) DIAGNOSTIC Cardinal 1 [id number] 049849 439277 6806785 5 JR 3.5 5Fr Health catheter (911961V) MULTIPACK Cardinal 1 591989 5 Pigtail 5 Health Fr catheter Tegaderm 4 3M 1 1626W 748378 612714 196828 5 x 4 (1626W) EXOSEAL 5Fr Cardinal 1 EX500 799990 293874 259789 10 (EX500) Health Signature Audit Downing Stage Time Signature Unsigned Intra-Procedure 02/06/2021 Nabil Barger RN 11:47:45 AM Intra-Procedure 02/06/2021 Leonor 11:48:14 AM Counts RT(R) Intra-Procedure 02/06/2021 Manish Diaz 11:48:36 AM Tyree JOHNSON [facility] [address] [place] [address]
[~2021-02-05 11:19] MED LIST changes: +ACETAMINOPHEN500 M1 PO; +MACROBID100 MG PO
--- NOTE | 2021-02-05 11:30 | NUR ---
ASPIRIN 325MG PO NOT GIVEN. PATIENT TOOK 650MG AT HOME PRIOR TO ADMISSION.
[2021-02-05 11:42] LABS: BASOPHILS 0.3 % (0-2); EOSINOPHILS 0.8 % (0-7); IMMATURE GRANULOCYTES 0.2 % (0-5); LYMPHOCYTE ABS# 1.63 10x3/uL (1.18-3.74); LYMPHOCYTES 25.7 % (15-50); MCH 22.6 pg (26.0-34.0); MCHC 31.3 g/dL (31.0-37.0); MCV 72.2 fL (80.0-100.0); MEAN PLATELET VOLUME 9.7 fL (7.4-10.4); MONOCYTES 5.8 % (2-11); NEUTROPHIL ABS# 4.27 10x3/uL (1.56-6.13); NEUTROPHILS 67.2 % (40-80); RBC 4.43 10x6/uL (4.00-5.40); RDW 17.6 % (11.5-14.5); WBC 6.4 10x3/uL (4.8-10.8)
--- NOTE | 2021-02-05 11:42 | NUR ---
NTG 0.4MG SL GIVEN FOR CP 8/10 ON PAIN SCALE. BP 135/81.
[2021-02-05 11:43] LABS: PLATELET COUNT 215 10x3/uL (130-400)
--- NOTE | 2021-02-05 11:48 | NUR ---
PATIENT STATES NO RELIEF WITH FIRST NTG. REPEATED DOSE. BP 127/77.
[2021-02-05 11:54] LABS: CALC OSMOLALITY 276 mosm/kg (275-300); CALCIUM 9.4 mg/dL (8.5-10.1); CARBON DIOXIDE 23.5 mmol/L (21.0-32.0); CHLORIDE - SERUM 101 mmol/L (98-107); CREATININE - SERUM 0.8 mg/dL (0.6-1.3); GLUCOSE 143 mg/dL (74-106); POTASSIUM - SERUM 4.2 mmol/L (3.5-5.1); SODIUM 138 mmol/L (136-145); UREA NITROGEN 11 mg/dL (7-18); eGFR NON AFRICAN AMERICAN 79 mL/min (90-120)
--- NOTE | 2021-02-05 11:57 | NUR ---
PATIENT REPORTS NO RELIEF OF PAIN AND NEW ONSET OF NAUSEA. DR. CUEVAS NOTIFIED.
[2021-02-05 11:59] LABS: APTT 29.2 SECONDS (22.8-39.4); INR 1.11 (0.85-1.17); PROTIME 13.3 SECONDS (11.6-15.0)
--- NOTE | 2021-02-05 12:00 | NUR ---
BP 110/77. PATIENT STATES PAIN IS "EASING UP".
[2021-02-05 12:09] LABS: ALBUMIN 3.9 g/dL (3.4-5.0); ALKALINE PHOSPHATASE 128 U/L (30-120); ALT (SGPT) 22 U/L (10-68); BILIRUBIN - TOTAL 0.33 mg/dL (0.2-1.3); PRO BNP 14 pg/mL (0-125); TROPONIN-I < 0.017 ng/mL (0.000-0.060)
--- NOTE | 2021-02-05 12:30 | NUR ---
PATIENT LYING QUIETLY. STATES CHEST PAIN 4/10.
--- NOTE | 2021-02-05 16:30 | NUR ---
MORPHINE 4MG GIVEN IV FOR CHEST PAIN.
[2021-02-05] MEDS ORDERED: CYMBALTA30 MG PO (16:32)
[2021-02-05] MEDS ORDERED: WELLBUTRIN XL150 M1 PO (16:33)
[2021-02-05 18:30] VITALS: BP 135/84; Ht 170.2 cm; Wt 111.8 kg
[2021-02-05 20:00] VITALS: BP 121/82
--- NOTE | 2021-02-05 22:38 | NUR ---
REPORT RECEIVED. PT A&O, UP IN BED WATCHING TV. C/O CP. VITAL SIGNS STABLE. EGK AND LAB RESULTS WERE WNL. IV PATENT. NORCO GIVEN PER EMAR. NO S/S OF DISTRESS OBSERVED. RR EVEN & UNLABORED ON RA. BED LOCKED AND LOWERED, CL IN REACH. ASSESSMENT COMPLETE. WILL CONT POC.
[2021-02-06 04:00] VITALS: BP 116/73
[2021-02-06 07:16] LABS: BASOPHILS 0.4 % (0-2); HEMATOCRIT 30.4 % (36.0-48.0); HEMOGLOBIN 9.3 g/dL (12-16); IMMATURE GRANULOCYTES 0.2 % (0-5); LYMPHOCYTE ABS# 1.77 10x3/uL (1.18-3.74); LYMPHOCYTES 34.7 % (15-50); MCH 22.6 pg (26.0-34.0); MCHC 30.6 g/dL (31.0-37.0); MCV 73.8 fL (80.0-100.0); MEAN PLATELET VOLUME 9.6 fL (7.4-10.4); MONOCYTES 7.8 % (2-11); NEUTROPHIL ABS# 2.85 10x3/uL (1.56-6.13); NEUTROPHILS 55.9 % (40-80); PLATELET COUNT 179 10x3/uL (130-400); RBC 4.12 10x6/uL (4.00-5.40); RDW 17.8 % (11.5-14.5); WBC 5.1 10x3/uL (4.8-10.8)
[2021-02-06 07:33] LABS: CALC OSMOLALITY 280 mosm/kg (275-300); CALCIUM 9.4 mg/dL (8.5-10.1); CARBON DIOXIDE 26.6 mmol/L (21.0-32.0); CHLORIDE - SERUM 103 mmol/L (98-107); CHOL - HDL RATIO 3.5 ratio (2.3-4.1); CHOLESTEROL, TOTAL 223 mg/dL (0-200); CREATININE - SERUM 0.8 mg/dL (0.6-1.3); GLUCOSE 127 mg/dL (74-106); HDL CHOLESTEROL 63 mg/dL (32-96); LDL CHOLESTEROL 138 mg/dL (0-100); LDL-HDL RATIO 2.2 ratio (1.5-3.5); POTASSIUM - SERUM 3.9 mmol/L (3.5-5.1); SODIUM 139 mmol/L (136-145); TRIGLYCERIDE 111 mg/dL (30-200); TROPONIN-I < 0.017 ng/mL (0.000-0.060); eGFR NON AFRICAN AMERICAN 79 mL/min (90-120)
[2021-02-06 07:35] LABS: UREA NITROGEN 15 mg/dL (7-18)
[2021-02-06 07:55] VITALS: BP 146/87
[2021-02-06 09:34] LABS: ALT (SGPT) 23 U/L (10-68)
--- NOTE | 2021-02-06 10:13 | NUR ---
I have reviewed this patient and I concur with the Shift Assessment completed by the Licensed Practical Nurse today this shift.
--- NOTE | 2021-02-06 11:03 | NUR ---
PATIENT HAS BEEN PRE OP'ED FOR HEART CATH
[2021-02-06 12:11] VITALS: BP 131/80
--- NOTE | 2021-02-06 12:32 | NUR ---
PRN PAIN MEDS GIVEN TO PATIENT AT THIS TIME
--- NOTE | 2021-02-06 13:38 | CN ---
PATIENT NAME:REYNALDO FALLON MEDICAL RECORD: [id number] : 67 LOCATION:[facility] D.2110 ADMIT DATE: 02/05/21 ACCOUNT: [id number] CONSULTING PHYSICIAN: ANABELLE FLORES MD REFERRING PHYSICIAN: LUIS MCKEON MD DATE OF CONSULTATION: 02/06/2021 HISTORY OF PRESENT ILLNESS: A 55-year-old female with history of coronary artery disease was told she had early atherosclerotic disease, previous CVA and angiography, history of hypertension, hyperlipidemia, onset of chest pain beginning approximately 2 days ago, heaviness, tightness radiating to the jaw as well as the left arm, nausea, no diaphoresis. Had onset of her rest symptomatology yesterday, presented to the ER. We are asked to see her concerning cardiovascular status. PAST MEDICAL HISTORY: Includes; 1. History of hypertension. 2. Hyperlipidemia. 3. Coronary artery disease as described above. 4. History of pulmonary embolus. ALLERGIES: None known. MEDICATIONS: Typically include lisinopril 20 mg p.o. every day, atorvastatin 20 mg p.o. every day, aspirin 325 every day, Flovilla 5/325 one every 8 hours p.r.n., Cymbalta 30 every day, bupropion 150 every day, Protonix 40 every day. SOCIAL HISTORY: Nonsmoker, nondrinker. No set of exercise program. Easily takes care of all her ADLs. REVIEW OF SYSTEMS: The patient reports easy bruising but reports no swollen glands. The patient reports no fever, no night sweats, no significant weight gain, no significant weight loss. No significant exercise tolerance. The patient reports no dry eyes, no irritation, no vision change. Patient reports no difficulty hearing and no ear pain. Patient reports no frequent nose bleeds or nose and sinus problems. Patient reports on arm pain on exertion. No shortness of breath while lying down. No history of heart murmur. Patient reports no cough, no wheezing or coughing up blood. Patient reports no abdominal pain, no vomiting. Normal appetite. No diarrhea and not vomiting blood. No nausea and no constipation. Patient reports no incontinence. No difficulty urinating. No hematuria. No increased frequency. Patient reports no muscle aches. No weakness, no arthralgias, no back pain. No swelling of the extremities. Patient reports no abnormal mole, no jaundice, no rashes. Reports no loss of consciousness. No weakness and no numbness. No seizures, dizziness, or headaches. The patient reports no depression, no sleep disturbance, feeling safe in a relationship and no alcohol abuse. Patient reports on fatigue. Reports no runny nose or sinus pressure. No itching, no hives, and no frequent sneezing. PHYSICAL EXAMINATION: GENERAL: Well-developed, well-nourished, in no acute distress, appears stated age. VITAL SIGNS: Blood pressure 146/87, pulse 85 and regular. HEENT: Normocephalic, atraumatic. NECK: No bruits are noted. CONSULT REPORT [id number] REYNALDO FALLON HEART: Regular, II/ systolic ejection murmur. LUNGS: Good air excursion. ABDOMEN: Soft, nontender. EXTREMITIES: Pulses are 2+. No edema. DIAGNOSTIC DATA: EKG shows nonspecific ST-T changes. IMPRESSION: Acute coronary syndrome, known history of atherosclerotic disease, now with rest symptomatology. PLAN: For angiography and intervention based on the above. TRANSINT:[id number] Voice Confirmation ID: [id number] DOCUMENT ID: [id number] ANABELLE FLORES MD at 1338 CC: [id number] DICTATION DATE: 02/06/21832 COLLAR FELLER: 02/06/21 1242 [place] [address]
[2021-02-06 16:25] VITALS: BP 120/76
--- NOTE | 2021-02-06 17:45 | NUR ---
NURSE REVIEWS DC INSTRUCTIONS WITH PATIENT AT THIS TIME.PATIENT SIGNS DC PAPERWORK. IV REMOVED WITH CATH TIP INTACT.
--- NOTE | 2021-02-06 18:07 | NUR ---
PATIENT BEING WHEELED DOWN AT THIS TIME. BELONGINGS IN HAND. NAD NOTED.
== END 2021-02-06 18:08 | disposition home or self-care (01) ==
LOC: D.ER 11:19 → D.M2 16:50 → OBSVTIME 16:51 → D.M2 02-06 18:08
PROVIDERS: Emergency Medicine; Internal Medicine Interventional Cardiology; ADMIT Family Medicine; ATTEND Family Medicine
DX: I20.0 Unstable angina (principal); I10 Essential (primary) hypertension; E78.5 Hyperlipidemia, unspecified; R07.9 Chest pain, unspecified; K21.9 Gastro-esophageal reflux disease without esophagitis; E11.42 Type 2 diabetes mellitus with diabetic polyneuropathy; M54.41 Lumbago with sciatica, right side; G89.29 Other chronic pain; F33.41 Major depressive disorder, recurrent, in partial remission; F41.9 Anxiety disorder, unspecified; K58.9 Irritable bowel syndrome, unspecified; D50.9 Iron deficiency anemia, unspecified; I27.82 Chronic pulmonary embolism

== ENCOUNTER → 2021-02-27 08:48 | Outpatient (CLI) | payer OTHER, MEDICAID ==
[2021-02-05 18:30] VITALS: BMI 38.6
[~2021-02-27 08:48] MED LIST changes: +CYMBALTA30 MG PO; +WELLBUTRIN XL150 M1 PO
== END | disposition home or self-care (01) ==
LOC: D.RAD 08:48
PROVIDERS: ATTEND Family Medicine
DX: M54.9 Dorsalgia, unspecified (principal); M25.532 Pain in left wrist; W19.XXXA Unspecified fall, initial encounter

== ENCOUNTER 2021-03-12 11:55 | Emergency (ER) | payer OTHER, MEDICAID ==
[~2021-03-12] VITALS: Ht 170.2 cm; Wt 113.6 kg
[2021-03-12 12:06] VITALS: BP 173/113; Ht 170.2 cm; Wt 113.6 kg
[2021-03-12 12:35] LABS: BASOPHILS 0.8 % (0-2); EOSINOPHILS 1.1 % (0-7); HEMATOCRIT 32.4 % (36.0-48.0); HEMOGLOBIN 10.2 g/dL (12-16); LYMPHOCYTES 29.1 % (15-50); MCH 22.1 pg (26.0-34.0); MCHC 31.3 g/dL (31.0-37.0); MCV 70.5 fL (80.0-100.0); MEAN PLATELET VOLUME 7.6 fL (7.4-10.4); RDW 19.1 % (11.5-14.5); WBC 6.5 10x3/uL (4.8-10.8)
[2021-03-12 12:50] LABS: PLATELET COUNT 262 10x3/uL (130-400)
[2021-03-12 13:32] LABS: BILIRUBIN NEGATIVE (NEGATIVE); KETONE NEGATIVE (NEGATIVE); NITRITE NEGATIVE (NEGATIVE); UROBILINOGEN NORMAL mg/dL (< 2); WHITE CELLS - URINE 0-5 HPF (0-4)
[2021-03-12 13:33] LABS: BACTERIA MANY HPF (NONE SEEN); CALC OSMOLALITY 279 mosm/kg (275-300); CALCIUM 9.1 mg/dL (8.5-10.1); CARBON DIOXIDE 21.3 mmol/L (21.0-32.0); CHLORIDE - SERUM 104 mmol/L (98-107); CREATININE - SERUM 0.8 mg/dL (0.6-1.3); GLUCOSE 131 mg/dL (74-106); SODIUM 139 mmol/L (136-145); SQUAMOUS EPITHELIAL OCC HPF (0-4); UREA NITROGEN 12 mg/dL (7-18); eGFR NON AFRICAN AMERICAN 79 mL/min (90-120)
[2021-03-12 13:41] LABS: ALBUMIN 3.9 g/dL (3.4-5.0); ALKALINE PHOSPHATASE 206 U/L (30-120); ALT (SGPT) 16 U/L (10-68); BILIRUBIN - TOTAL 0.35 mg/dL (0.2-1.3); PROTEIN - SERUM 8.2 g/dL (6.4-8.2)
[2021-03-12] MEDS ORDERED: FLOMAX0.4 MG PO (14:34)
[2021-03-12] MEDS ORDERED: HYDROCODON-ACE1 EA10 PO (14:34)
== END 2021-03-12 15:05 | disposition home or self-care (01) ==
LOC: D.ER 11:55
PROVIDERS: Family Medicine
DX: N20.0 Calculus of kidney (principal); E11.9 Type 2 diabetes mellitus without complications; I10 Essential (primary) hypertension; K76.0 Fatty (change of) liver, not elsewhere classified; M54.9 Dorsalgia, unspecified; R10.9 Unspecified abdominal pain

== ENCOUNTER 2021-03-17 14:02 | Emergency (ER) | payer OTHER, MEDICAID ==
[~2021-03-17] VITALS: Ht 170.2 cm; Wt 113.6 kg
[2021-03-17 15:05] LABS: BASOPHILS 0.6 % (0-2); EOSINOPHILS 0.8 % (0-7); HEMATOCRIT 33.8 % (36.0-48.0); HEMOGLOBIN 10.6 g/dL (12-16); LYMPHOCYTES 22.3 % (15-50); MCH 22.3 pg (26.0-34.0); MCHC 31.4 g/dL (31.0-37.0); MCV 71.1 fL (80.0-100.0); MONOCYTES 5.9 % (2-11); NEUTROPHILS 70.4 % (40-80); PLATELET COUNT 241 10x3/uL (130-400); RBC 4.75 10x6/uL (4.00-5.40); WBC 5.5 10x3/uL (4.8-10.8)
[2021-03-17 15:30] LABS: ALBUMIN 4.1 g/dL (3.4-5.0); ANION GAP 17.2 mmol/L (8-16); BILIRUBIN - TOTAL 0.34 mg/dL (0.2-1.3); CALCIUM 9.2 mg/dL (8.5-10.1); CARBON DIOXIDE 24.9 mmol/L (21.0-32.0); CREATININE - SERUM 0.9 mg/dL (0.6-1.3); POTASSIUM - SERUM 4.1 mmol/L (3.5-5.1); PROTEIN - SERUM 8.2 g/dL (6.4-8.2)
[2021-03-17] MEDS ORDERED: HYDROCODON-ACE1 EA10 PO (15:43)
[2021-03-17 16:33] VITALS: BP 171/93
== END 2021-03-17 16:33 | disposition home or self-care (01) ==
LOC: D.ER 14:02
PROVIDERS: Family Medicine
DX: N20.1 Calculus of ureter (principal); E11.9 Type 2 diabetes mellitus without complications; I10 Essential (primary) hypertension; K76.0 Fatty (change of) liver, not elsewhere classified